=== PATIENT | female | born 1945 | race Caucasian/White ===

== ENCOUNTER 2017-01-28 14:30 | Inpatient (IN) | payer OTHER, MEDICARE ==
[2017-01-28] VITALS (11 sets, daily range): BP systolic 128–164; BP diastolic 55–78; PULSE 87–95; RESP 16–20; TEMP 97.4–98.1; O2SAT 98–100
[~2017-01-28] VITALS: Ht 165.1 cm; Wt 70.5 kg
[2017-01-28] MEDS ORDERED: LEVO500T8 PO (15:13)
[2017-01-28] MEDS ORDERED: GLIP5TAB8 PO (15:13)
[2017-01-28] MEDS ORDERED: ROSU1TAB10 PO (15:13)
[2017-01-28] MEDS ORDERED: GEMF600T PO (15:13)
[2017-01-28] MEDS ORDERED: METO25TA3 PO (15:13)
[2017-01-28] MEDS ORDERED: LOSA100T PO (15:13)
[2017-01-28] MEDS ORDERED: LEVO100T5 PO (15:13)
[2017-01-28] MEDS ORDERED: SODIUM CHLOR 0.9% 1000 ML INJ 1,000 ML IV SCH ×2 (15:15→18:45)
--- NOTE | 2017-01-28 15:21 | PD ---
HPI Chief Complaint: General Weakness Time Seen by Provider: 14:55 Travel History International Travel<30 days: No Contact w/Intl Traveler<30days: No Traveled to known affect area: No History of Present Illness HPI 71-year-old female complains of generalized malaise and weakness, body ache, shortness of breath and dyspnea on exertion. Patient was seen by personal physician 2 days ago and was diagnosed with UTI. Patient was given prescription for Levaquin 500 mg daily. Patient is on day #3 of Levaquin. Patient states that she started having increasing body ache, shortness of breath and dyspnea on exertion and body ache since then. Patient denies any fever chills. Patient denies any headache. Patient denies any neck pain. Patient denies any chest pain. Patient denies abdominal pain. Patient denies any nausea vomiting diarrhea. Patient denies any back pain. Patient denies any focal weakness or numbness of extremity. Patient states that she has occasional urinary frequency and the urinary frequency got better with antibiotic. Patient has history of chronic anemia due to chronic kidney disease , diabetes, hypertension, hypothyroidism. PFSH Past Medical History High Cholesterol: Yes Diabetes: Yes Patient Takes Glucophage: No Hypertension: Yes Thyroid Disease: Yes Tetanus Vaccination: Unknown Influenza Vaccination: Yes ?: Not Past Surgical History Surgical History: No Previous Surgery Social History Alcohol Use: Yes (RARELY) Tobacco Use: No Substance Use: No Allergies-Medications (Allergen,Severity, Reaction): Coded Allergies: No Known Allergies (Verified , 01/28/17) Reported Meds & Prescriptions Reported Meds & Active Scripts Active Reported Levofloxacin 500 Mg Tablet 500 Mg PO DAILY Levothyroxine (Levothyroxine Sodium) 100 Mcg Tab 100 Mcg PO DAILY Rosuvastatin (Rosuvastatin Calcium) 40 Mg Tab 40 Mg PO DAILY Glipizide 5 Mg Tab 2.5 Mg PO TID Take 30 minutes before a meal Losartan (Losartan Potassium) 100 Mg Tab 100 Mg PO DAILY Metoprolol Tartrate 25 Mg Tab 25 Mg PO BID Gemfibrozil 600 Mg Tab 600 Mg PO BIDAC Take 30 minutes prior to breakfast and dinner. Review of Systems General / Constitutional: No: Fever Eyes: No: Visual changes HENT: No: Headaches Cardiovascular: No: Chest Pain or Discomfort Respiratory: Positive: Shortness of Breath Gastrointestinal: No: Abdominal Pain Genitourinary: No: Dysuria Musculoskeletal: No: Pain Skin: No Rash Neurologic: No: Weakness Psychiatric: No: Depression Endocrine: No: Polydipsia Hematologic/Lymphatic: No: Easy Bruising Physical Exam Narrative GENERAL: Well-nourished, well-developed patient. SKIN: Focused skin assessment warm/dry. HEAD: Normocephalic. EYES: No scleral icterus. No injection or drainage. NECK: Supple, trachea midline. No JVD or lymphadenopathy. CARDIOVASCULAR: Regular rate and rhythm without murmurs, gallops, or rubs. RESPIRATORY: Breath sounds equal bilaterally. No accessory muscle use. GASTROINTESTINAL: Abdomen soft, non-tender, nondistended. MUSCULOSKELETAL: No cyanosis, or edema. BACK: Nontender without obvious deformity. No CVA tenderness. Neurologic exam normal. Data Data Last Documented VS Vital Signs Date Time Temp Pulse Resp B/P (MAP) Pulse Ox O2 Delivery O2 Flow Rate FiO2 01/28/17 18:40 90 18 128/65 (86) 98 Room Air 01/28/17 14:33 97.4 Orders Orders Electrocardiogram (01/28/17 15:05) Complete Blood Count With Diff (01/28/17 15:05) Comprehensive Metabolic Panel (01/28/17 15:05) Creatine Kinase (Cpk) (01/28/17 15:05) Troponin I (01/28/17 15:05) B-Type Natriuretic Peptide (01/28/17 15:05) Prothrombin Time / Inr (Pt) (01/28/17 15:05) Act Partial Throm Time (Ptt) (01/28/17 15:05) Urinalysis - C+S If Indicated (01/28/17 15:05) Chest, Single Ap (01/28/17 15:05) Iv Access Insert/Monitor (01/28/17 15:05) Ecg Monitoring (01/28/17 15:05) Oximetry (01/28/17 15:05) Sodium Chlor 0.9% 1000 Ml Inj (Ns 1000 M (01/28/17 15:15) Ct Abd/Pel W/O Iv Contrast (01/28/17 16:42) CKMB (01/28/17 15:10) CKMB% (01/28/17 15:10) Dextrose 5% In Wate... W/Sodium Bicarbon (01/28/17 17:30) Sodium Bicarbonate 8.4% Inj (Sodium Bica (01/28/17 17:30) Sodium Chlor 0.9% 1000 Ml Inj (Ns 1000 M (01/28/17 17:30) Sodium Polysty Sulfate Liq (Kayexalate L (01/28/17 18:00) Lactic Acid (01/28/17 18:42) Tylenol (Acetaminophen) (01/28/17 18:42) Salicylates (Aspirin) (01/28/17 18:42) Drug Screen, Random Urine (01/28/17 18:42) Sodium Chlor 0.9% 1000 Ml Inj (Ns 1000 M (01/28/17 18:45) Lactic Acid (01/28/17 18:47) Consult Nephrology (01/28/17 ) (Hub Use Only)Inp Phy Cons/Ref (01/28/17 ) Labs Laboratory Tests Test 01/28/17 15:10 White Blood Count 12.2 TH/MM3 Red Blood Count 3.85 MIL/MM3 Hemoglobin 11.8 GM/DL Hematocrit 34.3 % Mean Corpuscular Volume 89.0 FL Mean Corpuscular Hemoglobin 30.5 PG Mean Corpuscular Hemoglobin Concent 34.3 % Red Cell Distribution Width 12.8 % Platelet Count 198 TH/MM3 Mean Platelet Volume 7.9 FL Neutrophils (%) (Auto) 88.4 % Lymphocytes (%) (Auto) 4.3 % Monocytes (%) (Auto) 6.4 % Eosinophils (%) (Auto) 0.2 % Basophils (%) (Auto) 0.7 % Neutrophils # (Auto) 10.8 TH/MM3 Lymphocytes # (Auto) 0.5 TH/MM3 Monocytes # (Auto) 0.8 TH/MM3 Eosinophils # (Auto) 0.0 TH/MM3 Basophils # (Auto) 0.1 TH/MM3 CBC Comment DIFF FINAL Differential Comment Prothrombin Time 11.6 SEC Prothromb Time International Ratio 1.0 RATIO Activated Partial Thromboplast Time 26.4 SEC Blood Urea Nitrogen 100 MG/DL Creatinine 6.30 MG/DL Random Glucose 144 MG/DL Total Protein 7.3 GM/DL Albumin 3.4 GM/DL Calcium Level 7.6 MG/DL Alkaline Phosphatase 70 U/L Aspartate Amino Transf (AST/SGOT) 1167 U/L Alanine Aminotransferase (ALT/SGPT) 447 U/L Total Bilirubin 0.3 MG/DL Sodium Level 137 MEQ/L Potassium Level 5.6 MEQ/L Chloride Level 107 MEQ/L Carbon Dioxide Level 11.5 MEQ/L Anion Gap 19 MEQ/L Estimat Glomerular Filtration Rate 7 ML/MIN Total Creatine Kinase GREATER THAN 51517 U/L Creatine Kinase MB 712.3 NG/ML Creatine Kinase MB % 0.0 % Troponin I 0.02 NG/ML B-Type Natriuretic Peptide 21 PG/ML MDM Medical Decision Making Medical Screen Exam Complete: Yes Emergency Medical Condition: Yes Interpretation(s) Last Impressions Chest X-Ray 01/28/17 1505 Signed Impressions: Service Date/Time: Saturday, January 28, 2017 15:16 - CONCLUSION: No acute disease. Marcos Pelletier MD FACR 1639 PM. CBC WBC 12.2. Hemoglobin 11.8 hematocrit 34.3. 88 neutrophil. Potassium 5.6. Bicarbonate 11.5. Anion gap 19. BUN 100. Creatinine 6.30. GFR 7. Glucose 144. Calcium 7.6. AST 1167. ALT 447. Differential Diagnosis Differential diagnosis including viral syndrome, UTI, electrolyte abnormality, dehydration, sepsis, side effect of medication. Narrative Course 71-year-old female with generalized malaise, body ache, shortness of breath and dyspnea on exertion. Patient's on day #3 of Levaquin for UTI. Normal saline solution 1 25 cc an hour. Patient with severe metabolic acidosis. 1724 PM. Bicarbonate 100 mEq IV given. D5 W with 3 Amps of bicarbonate per liter at 75 cc an hour. Normal saline solution 1 L IV bolus. Kayexalate 30 cc by mouth given. I spoke with Dr. Lang, instructional technology coordinator song lyricist. Agree with the plan. Diagnosis Primary Impression: Acute renal failure Qualified Codes: N17.9 - Acute kidney failure, unspecified Additional Impressions: Rhabdomyolysis Qualified Codes: M62.82 - Rhabdomyolysis Metabolic acidosis Hyperkalemia Transaminitis Anthony Walker MD Jan 28, 2017 15:21
[2017-01-28 15:33] LABS: AUTOMATED NEUTROPHIL # 10.8 TH/MM3 (1.8-7.7); BASOPHIL # 0.1 TH/MM3 (0-0.2); BASOPHIL % 0.7 % (0.0-2.0); EOSINOPHIL % 0.2 % (0.0-4.0); HEMATOCRIT 34.3 % (35.0-46.0); HEMO FLAGS DIFF FINAL; LYMPH % 4.3 % (9.0-44.0); LYMPHOCYTE # 0.5 TH/MM3 (1.0-4.8); MEAN CORPUSCULAR HEMOGLOBIN 30.5 PG (27.0-34.0); MEAN CORPUSCULAR HGB CONC 34.3 % (32.0-36.0); MONO % 6.4 % (0.0-8.0); NEUT % 88.4 % (16.0-70.0); PLATELET COUNT 198 TH/MM3 (150-450); RED BLOOD COUNT 3.85 MIL/MM3 (4.00-5.30); RED CELL DISTRIBUTION WIDTH 12.8 % (11.6-17.2); WHITE BLOOD COUNT 12.2 TH/MM3 (4.0-11.0)
[2017-01-28 15:52] LABS: CHLORIDE 107 MEQ/L (98-107); POTASSIUM 5.6 MEQ/L (3.5-5.1); SODIUM (NA) 137 MEQ/L (136-145)
[2017-01-28 15:56] LABS: ANION GAP 19 MEQ/L (5-15); APTT (PATIENT) 26.4 SEC (24.3-30.1); BICARBONATE 11.5 MEQ/L (21.0-32.0); BLOOD UREA NITROGEN 100 MG/DL (7-18); PROTHROMBIN TIME - PATIENT 11.6 SEC (9.8-11.6)
[2017-01-28 15:59] LABS: ALT (GPT) 447 U/L (10-53); GLOMERULAR FILTRATION RATE 7 ML/MIN (>89)
--- NOTE | 2017-01-28 15:59 | RADRPT ---
EXAM DATE/TIME: 01/28/2017 15:16 [facility] COMPARISON: No previous studies available for comparison. INDICATIONS : Shortness of breath. MEDICAL HISTORY : None. SURGICAL HISTORY : None. ENCOUNTER: Initial ACUITY: 1 day PAIN SCORE: 5/10 LOCATION: Bilateral chest FINDINGS: A single view of the chest demonstrates the lungs to be symmetrically aerated without evidence of mas s, infiltrate or effusion. The cardiomediastinal contours are unremarkable. Osseous structures are intact. CONCLUSION: No acute disease. Marcos Pelletier MD FACR on January 28, 2017 at 15:57 Board Certified Radiologist. This report was verified electronically.
[2017-01-28 16:00] LABS: TOTAL BILIRUBIN ADULT 0.3 MG/DL (0.2-1.0)
[2017-01-28 16:02] LABS: ALKALINE PHOSPHATASE 70 U/L (45-117)
[2017-01-28 16:07] LABS: AST (GOT) 1167 U/L (15-37)
[2017-01-28 16:52] LABS: CREATINE KINASE GREATER THAN 14000 U/L (26-192)
[2017-01-28 17:20] LABS: CKMB 712.3 NG/ML (0.5-3.6)
[2017-01-28] MEDS ORDERED: SODIUM BICARBONATE 8.4% INJ 50 MEQ/50 ML SYR IV PUSH ONE (17:30)
[2017-01-28] MEDS ORDERED: SODIUM CHLOR 0.9% 1000 ML INJ 1,000 ML IV ONE (17:30)
[2017-01-28] MEDS ORDERED: SODIUM POLYSTYRENE SULFONATE SUSP 15 GM/60 ML CUP PO ONE (18:00)
[2017-01-28] MEDS: SODIUM BICARBONATE 8.4% INJ 150 MEQ in DEXTROSE 5% IN WATE 1000ML INJ 1,000 ML IV SCH ×2 (18:00)
--- NOTE | 2017-01-28 18:59 | RADRPT ---
EXAM DATE/TIME: 01/28/2017 17:21 [facility] COMPARISON: No previous studies available for comparison. INDICATIONS : Renal failure. General weakness. ORAL CONTRAST: No oral contrast ingested. RADIATION DOSE: 8.68 CTDIvol (mGy) MEDICAL HISTORY : Diabetes mellitus type 2. Hypertension. SURGICAL HISTORY : None. ENCOUNTER: Initial ACUITY: 2 days PAIN SCALE: 5/10 LOCATION: Abdomen. TECHNIQUE: Volumetric scanning of the abdomen and pelvis was performed. Using automated exposure control and ad justment of the mA and/or kV according to patient size, radiation dose was kept as low as reasonably achievable to obtain optimal diagnostic quality images. DICOM format image data is available electro nically for review and comparison. FINDINGS: LOWER LUNGS: The visualized lower lungs are clear. LIVER: Homogeneous density without lesion. There is no dilation of the biliary tree. No calcified gallston es. SPLEEN: Normal size without lesion. PANCREAS: Within normal limits. KIDNEYS: Normal in size and shape. There is no mass, stone, or hydronephrosis. ADRENAL GLANDS: Within normal limits. VASCULAR: There is no aortic aneurysm. Atherosclerotic calcifications are seen. BOWEL/MESENTERY: The stomach, small bowel, and colon demonstrate no acute abnormality. There is no free intraperitone al air or fluid. The appendix is normal. ABDOMINAL WALL: Within normal limits. There is minimal induration in the subcutaneous anterior abdominal wall fat lik zee from prior injections. RETROPERITONEUM: There is no lymphadenopathy. BLADDER: No wall thickening or mass. REPRODUCTIVE: Within normal limits. INGUINAL: There is no lymphadenopathy or hernia. MUSCULOSKELETAL: Within normal limits for patient age. CONCLUSION: No acute disease. Charlie Cheng MD on January 28, 2017 at 18:55 Board Certified Radiologist. This report was verified electronically.
[2017-01-28] MEDS ORDERED: MAGNESIUM HYDROXIDE SUSP 30 ML CUP PO PRN (19:45)
[2017-01-28] MEDS ORDERED: RESP: ALBUTEROL 2.5 MG/3 ML NEB (PRN) INH (19:45)
[2017-01-28] MEDS ORDERED: LACTULOSE SYRUP 20 GM/30 ML CUP PO PRN (19:45)
[2017-01-28] MEDS ORDERED: MORPHINE SULFATE 4 MG/ML INJ IV PRN (19:45)
[2017-01-28] MEDS ORDERED: BISACODYL 10 MG SUPP RECTAL PRN (19:45)
[2017-01-28] MEDS ORDERED: MISCELLANEOUS NURSING INFORMATION XX SCH (19:45)
[2017-01-28] MEDS ORDERED: SENNOSIDES 8.6 MG TAB PO PRN (19:45)
[2017-01-28] MEDS ORDERED: SODIUM CHLORIDE 0.9% FLUSH 10 ML FLUSH IV FLUSH PRN (19:45)
[2017-01-28] MEDS ORDERED: ONDANSETRON HCL 4 MG/2 ML VIAL IV PRN (19:45)
[2017-01-28] MEDS ORDERED: CHLORHEXIDINE GLUCONATE 2 % 1 PACK (2 CLOTHS) TOP PRN (19:45)
[2017-01-28] MEDS ORDERED: DEXTROSE 50% IN WATER 50 ML VIAL(D50) IV PRN (20:00)
[2017-01-28] MEDS ORDERED: GLUCAGON 1 MG/ML VIAL OTHER PRN (20:00)
[2017-01-28] MEDS: SODIUM CHLORIDE 0.9% FLUSH 10 ML FLUSH IV FLUSH SCH (21:00)
[2017-01-28] MEDS: DOCUSATE SODIUM 50 MG/SENNA 8.6 MG TAB PO SCH (21:00)
[2017-01-28 21:19] LABS: BLOOD, URINE LARGE (NEG); GLUCOSE,URINE 100 mg/dL (NEG); KETONE, URINE TRACE mg/dL (NEG); NITRITE,URINE NEG (NEG)
[2017-01-28 21:26] LABS: URINE COLOR BROWN (YELLW/STRAW)
[2017-01-28 21:27] LABS: RBC, URINE 0-3 /hpf (0-3); SQUAMOUS EPITHELIAL CELL URINE 0-5 /hpf (0-5)
[2017-01-28 21:28] LABS: COMMENT (UR) CULTURE INDICATED; CULTURE IF INDICATED CULTURE INDICATED
--- NOTE | 2017-01-28 21:41 | HHI.CCPN ---
Subjective Remarks/Hospital Course Called by Dr. Walker for patient with recent diagnosis of UTI and acute kidney injury, hyperkalemia, rhabdo and elevated transaminases. Hyperkalemia medically treated. Patient denied ingestion of Tylenol to Dr. Walker. Sending tox screen, Tylenol level, hepatitis panel, ultrasound. We'll hold Levaquin in case this is contributing to transaminitis. Also hold statin in setting of rhabdo. Obtain UA and culture. Cefepime for UTI. Check lactic acid. Patient is normotensive. Nephrology has been consulted. I am covering [facility] and must remain in house at [facility] while providing coverage at [facility]. Patient does not appear to require the resources to transfer to [facility]. Admission orders have been placed. IVF fluids and bicarb drip, monitor CMP. Objective Vital Signs Date Time Temp Pulse Resp B/P (MAP) Pulse Ox O2 Delivery O2 Flow Rate FiO2 01/28/17 21:00 98.1 95 18 148/59 (88) 100 Room Air Intake and Output 01/28/17 01/28/17 01/29/17 08:00 16:00 00:00 Intake Total 1239 ml Balance 1239 ml Result Diagram: 01/28/17 1510 01/28/17 1510 Magali Espinoza MD Jan 28, 2017 21:41
[2017-01-28] MEDS ORDERED: SODIUM CHLORID 0.9% 500 ML INJ 500 ML IV SCH (21:45)
[2017-01-28] MEDS: INSULIN ASPART SUPPLEMENTAL SCALE SQ SCH (21:51)
[2017-01-28] MEDS: HEPARIN SODIUM - SQ 10,000 UNITS/ML VIAL SQ SCH (21:54)
[2017-01-28 23:18] LABS: BICARBONATE 15.1 MEQ/L (21.0-32.0); POTASSIUM 4.4 MEQ/L (3.5-5.1)
[2017-01-28 23:34] LABS: CALCIUM-PROTEIN CORRECTED 7.8 MG/DL (8.5-10.1)
[2017-01-28] MEDS: CEFEPIME INJ 1,000 MG in SODIUM CHLORIDE 0.9% INJ 100 ML IV SCH (23:55)
[2017-01-29] VITALS (24 sets, daily range): BP systolic 103–159; BP diastolic 46–89; PULSE 74–92; RESP 9–31; TEMP 98.2–99.1; O2SAT 94–96
[2017-01-29] MEDS: CHLORHEXIDINE GLUCONATE 2 % 1 PACK (2 CLOTHS) TOP SCH (04:00)
[2017-01-29 06:30] LABS: AUTOMATED NEUTROPHIL # 5.6 TH/MM3 (1.8-7.7); BASOPHIL % 0.5 % (0.0-2.0); EOSINOPHIL # 0.1 TH/MM3 (0-0.4); EOSINOPHIL % 1.5 % (0.0-4.0); LYMPH % 7.8 % (9.0-44.0); LYMPHOCYTE # 0.5 TH/MM3 (1.0-4.8); MEAN CELL VOLUME 87.5 FL (80.0-100.0); MEAN CORPUSCULAR HGB CONC 33.2 % (32.0-36.0); MONO % 7.4 % (0.0-8.0); NEUT % 82.8 % (16.0-70.0); PLATELET COUNT 186 TH/MM3 (150-450); RED BLOOD COUNT 3.32 MIL/MM3 (4.00-5.30); RED CELL DISTRIBUTION WIDTH 12.5 % (11.6-17.2); WHITE BLOOD COUNT 6.7 TH/MM3 (4.0-11.0)
[2017-01-29] MEDS: LEVOTHYROXINE SODIUM 100 MCG TAB PO SCH (06:43)
[2017-01-29 06:44] LABS: HEMO FLAGS AUTO DIFF
[2017-01-29] MEDS: INSULIN ASPART SUPPLEMENTAL SCALE SQ SCH ×4 (07:00→23:43)
[2017-01-29 07:02] LABS: SCAN/DIFF AUTO DIFF CONFIRMED
[2017-01-29 07:25] LABS: ALKALINE PHOSPHATASE 57 U/L (45-117); ALT (GPT) 351 U/L (10-53); ANION GAP 16 MEQ/L (5-15); AST (GOT) 861 U/L (15-37); BICARBONATE 17.8 MEQ/L (21.0-32.0); BLOOD UREA NITROGEN 100 MG/DL (7-18); CALCIUM-PROTEIN CORRECTED 7.9 MG/DL (8.5-10.1); CHLORIDE 108 MEQ/L (98-107); GLOMERULAR FILTRATION RATE 6 ML/MIN (>89); MAGNESIUM 2.1 MG/DL (1.5-2.5); POTASSIUM 3.3 MEQ/L (3.5-5.1); SODIUM (NA) 142 MEQ/L (136-145); TOTAL BILIRUBIN ADULT 0.2 MG/DL (0.2-1.0)
[2017-01-29] MEDS ORDERED: SODIUM CHLOR 0.9% 1000 ML INJ 1,000 ML IV ONE (07:45)
[2017-01-29] MEDS ORDERED: SODIUM CHLORIDE 0.9% IRR BTL 1,000 ML IRRIGATION ONE (07:45)
[2017-01-29] MEDS: SODIUM BICARBONATE 8.4% INJ 150 MEQ in DEXTROSE 5% IN WATE 1000ML INJ 1,000 ML IV SCH ×4 (08:09→17:19)
[2017-01-29] MEDS: SODIUM CHLORIDE 0.9% FLUSH 10 ML FLUSH IV FLUSH SCH ×2 (08:10→20:50)
[2017-01-29 08:24] LABS: CKMB 415.6 NG/ML (0.5-3.6)
[2017-01-29] MEDS: DOCUSATE SODIUM 50 MG/SENNA 8.6 MG TAB PO SCH ×2 (09:00→20:50)
[2017-01-29] MEDS: PANTOPRAZOLE SOD 40 MG DELAYED RELEASE TAB PO SCH (09:01)
[2017-01-29] MEDS: HEPARIN SODIUM - SQ 10,000 UNITS/ML VIAL SQ SCH ×2 (09:02→20:49)
[2017-01-29 09:26] LABS: CREATINE KINASE GREATER THAN 14000 U/L (26-192)
--- NOTE | 2017-01-29 09:56 | EKG ---
Date Performed: 01/28/2017 Time Performed: 15:14:27 PTAGE: 71 years EKG: Sinus rhythm LOW QRS VOLTAGE IN PRECORDIAL LEADS BORDERLINE ECG NO PREVIOUS TRACING DOCTOR: Mike Bell Interpretating Date/Time 01/29/2017 09:54:18
--- NOTE | 2017-01-29 12:52 | MH ---
cc: FATOUMATA FLORES M.D. DATE OF ADMISSION: 01/28/2017 HISTORY OF PRESENT ILLNESS : The patient is 71-year-old female with past medical history of diabetes mellitus, hypertension, hyperlipidemia, hypothyroidism who presented to the [facility] with complaints of generalized weakness and body aches. The patient went to see her primary care physician approximately two or three days ago and she was diagnosed with a urinary tract infection and given prescription for Levaquin. She also reports difficulty ambulating and intermittent shortness of breath and dyspnea on exertion. She denies any associated symptoms of chest pain, orthopnea, paroxysmal nocturnal dyspnea or edema of the lower extremities. In addition, she denies any nausea or vomiting, abdominal pain or any gastrointestinal symptoms. In the emergency room, she was found to be in renal failure with a BUN of 100, creatinine 6.30 and hyperkalemic with potassium level 5.6. Also, the patient was in rhabdomyolysis with elevated CKs greater than 14,000 and had elevated liver enzymes. Her AST measured at 1167 and ALT 447. Her urine toxicology screen is negative. In addition her Tylenol level was less than 2.0 and aspirin level is 2.8. She was given a one liter bolus of normal saline, two ampules of sodium bicarb and Kayexalate. The patient was placed on a bicarb drip. When seen, she was lying comfortably in bed in no acute respiratory distress. The patient is on room air oxygen with saturation of 97%, blood pressure 120/63 with a pulse of 80. She had repeat labs last night, which showed creatinine of 6.50 with a potassium of 4.4. Her labs are pending at this point. CT scan of the abdomen and pelvis last night was unremarkable. In addition, she had a chest x-ray which showed no acute cardiopulmonary disease. The patient was placed on Cefepime for urinary tract infection. PAST MEDICAL HISTORY: Her past medical history is significant for: 1. Hypertension. 2. Hyperlipidemia. 3. Diabetes mellitus. 4. Hypothyroidism. PAST SURGICAL HISTORY: 1. Previous tonsillectomy. SOCIAL HISTORY: Quit smoking in 1999. Occasional drinker. ALLERGIES: NO KNOWN DRUG ALLERGIES. REPORTED MEDICATIONS: 1. Lopressor. 2. Gemfibrozil. 3. Losartan. 4. Glipizide. 5. Levothyroxine. 6. Levaquin. FAMILY HISTORY: Noncontributory. REVIEW OF SYSTEMS: As per the history of present illness and the rest of the review of systems is unremarkable. PHYSICAL EXAMINATION: GENERAL: A 71-year-old female lying in bed in no acute distress. VITAL SIGNS: Temperature 98.6, pulse 80, blood pressure 120/53, saturations 97% on room air. HEAD, EYES, EARS, NOSE, THROAT: Normocephalic and atraumatic. Pupils equal, round and reactive to light and accommodation. Extraocular muscles intact. Conjunctivae are pink. Nonicteric sclerae. Oral mucosa within normal limits. NECK: The neck is supple. No jugular venous distention, adenopathy or thyromegaly. Trachea in the midline. CARDIOVASCULAR: Regular rate and rhythm. Normal S1-S2. No murmurs, rubs or gallops noted. PULMONARY: Bilateral equal air entry. No rales or wheezing. ABDOMEN: The abdomen is soft, nontender and no distention. Positive bowel sounds. EXTREMITIES: No cyanosis, clubbing or edema. NEUROLOGIC: No focal sensory deficits. LABORATORY DATA: White blood cell count 6.7, hemoglobin 9.6, hematocrit 29, platelet count 186,000. Sodium 142, potassium 4.4, chloride 109, carbon dioxide 15, BUN 103, creatinine 6.5, glucose of 163, corrected calcium 7.8. Liver function tests from yesterday showed AST 1167, AST 447, total bilirubin 0.3, alkaline phosphatase 70. Total CK greater than 14,000. 676. TSH 0.742. INR 1. PT 11.6. PTT 26.4. Urine drug screen negative. Tylenol level less than 2, aspirin level of 2.8. IMAGING STUDIES: CT abdomen and pelvis showed no acute disease. Chest x-ray showed no evidence of any cardiopulmonary disease. IMPRESSION: 1. Acute kidney injury. 2. Rhabdomyolysis. 3. Dehydration. 4. Elevated liver enzymes. 5. Anion gap metabolic acidosis. 6. Leukocytosis, resolved. 7. Recent urinary tract infection. 8. Anemia. 9. Diabetes mellitus. 10. Hyperlipidemia. 11. Hypertension. 12. Hypothyroidism. RECOMMENDATIONS: 1. Monitor neuro status. The patient is awake and alert. 2. Oxygen PRN to maintain saturations above 92%. 3. Bronchodilators on a PRN basis. 4. Monitor heart rate and blood pressure closely and maintain MAP greater than 65 mmHg. 5. Lactic acid level measured at 1.0 last night. 6. Hold antihypertensives and medications for now. 7. Monitor renal function, intake and output and avoid nephrotoxins. 8. Electrolyte replacement as needed. 9. Continue with bicarbonate drip and increase rate to 125 mL/hour. 10. CT scan abdomen and pelvis showed no evidence of any kidney stones, masses os hydronephrosis. 11. Dr. Lang from the nephrology service was consulted. 12. Keep NPO for now and continue with Protonix 40 milligrams daily for GI prophylaxis. 13. Monitor liver function tests and lipase level. 14. CT scan of the abdomen showed no acute findings as stated above. Her liver showed no dilation of the biliary tree and no calcified gallstones. 15. Continue with antibiotics in the form of Cefepime and monitor for signs of infection which include fever and WBCs. 16. Follow up on urine culture. 17. Monitor CBC. 18. Sliding scale insulin with Accu-Cheks for glycemic control. 19. Continue with Synthroid 100 micrograms p.o. daily. Her TSH level measured 0.74. 20. GI prophylaxis with Protonix 40 milligrams daily and DVT prophylaxis with SCDs and heparin subcutaneous. Further recommendations will be based on the hospital course. MD CLOTILDE Boyd/MAURICE /7:07 AM /12:36 PM
--- NOTE | 2017-01-29 12:52 | RADRPT ---
EXAM DATE/TIME: 01/29/2017 11:23 [facility] COMPARISON: No previous studies available for comparison. INDICATIONS : Increased lab values. MEDICAL HISTORY : Hypercholesterolemia. Hypertension. Diabetes. Thyroid disease. SURGICAL HISTORY : None. ENCOUNTER: Initial ACUITY: 2 days PAIN SCORE: 0/10 LOCATION: Bilateral upper quadrant MEASUREMENTS: LIVER: 16.6 cm length COMMON DUCT: 7 mm RIGHT KIDNEY: 11.2 x 5.4 x 6.1 cm SPLEEN: 10.8 cm length FINDINGS: LIVER: Normal echotexture without focal lesion or ductal dilatation. COMMON DUCT: No intraluminal mass or stone visualized. Mildly prominent 7 mm. GALLBLADDER: Prominent gallbladder without gallbladder without inflated signs of acute cholecystitis. PANCREAS: The visualized portions are within normal limits. RIGHT KIDNEY: Small 1.6 in recess without hydronephrosis. SPLEEN: No focal lesion. CONCLUSION: Prominent gallbladder without stones or intrahepatic biliary duct dilatation. Marcos Pelletier MD FACR on January 29, 2017 at 12:49 Board Certified Radiologist. This report was verified electronically.
[2017-01-29 13:29] LABS: BICARBONATE 21.6 MEQ/L (21.0-32.0)
[2017-01-29 13:50] LABS: CALCIUM-PROTEIN CORRECTED 7.8 MG/DL (8.5-10.1)
[2017-01-29] MEDS ORDERED: POTASSIUM CHLOR 20 MEQ PREMIX 100 ML IV ONE (15:00)
[2017-01-29] MEDS ORDERED: FUROSEMIDE 40 MG/4 ML VIAL IV PUSH ONE (15:00)
--- NOTE | 2017-01-29 17:54 | MB ---
cc: AUTUMN ALTMAN MD DATE OF CONSULTATION 01/29/17 REASON FOR CONSULTATION Elevated BUN and creatinine for evaluation. HISTORY OF PRESENT ILLNESS This is a 71-year-old female with past medical history of hyperlipidemia, diabetes mellitus, hypertension, recent urinary tract infection, possible chronic kidney disease who came to the hospital with complaint of generalized weakness, pain in the legs and shortness of breath on exertion. I was called to see the patient because of very high BUN and creatinine. The patient was told before that she has renal disease. She saw some addictions counselor assistant once as an outpatient and then she was not going because she said that all her primary physician was doing is checking the labs and telling her that the kidneys are not very good, but according to her it was not very back to be concerned of. The patient has a urinary tract infection with dysuria. She was given some antibiotic, Levaquin. She was taking 500 mg once a day. She noticed that she has worsening shortness of breath and has decreasing appetite and weakness and also has pain in her legs. She called her primary physician on Tuesday and was told to stop the statin that she was taking and drink plenty of fluid which she did, but she noticed that her urine output has decreased. She was taking ibuprofen for pain in the legs for two days before she came to the hospital and she was taking twice a day. There is no history of blood in the urine. There is no history of renal stone. No vomiting. Occasionally, she has nausea. She did not have any diarrhea, but she has some loose bowel motion after she was given Kayexalate here. The patient had elevated potassium when she came in here and the potassium was 5.6, but it improved. Her urine output remains low. She has a creatinine of 6.3 and it has gone up to 7.1 now. PAST MEDICAL HISTORY 1. Hypertension, 2. Diabetes mellitus, 3. Hyperlipidemia, 4. Possible chronic kidney disease, 5. Osteoarthritis. PAST SURGICAL HISTORY None. REVIEW OF SYSTEMS She has generalized weakness, feeling tired, has nausea. There is no vomiting, has shortness of breath on exertion. There is no chest pain, mild cough which is mainly dry. There is no history of diarrhea. She had loose bowel motion after she was given kayexalate here. She has been taking ibuprofen for pain in the legs. She has pain in both legs. He also has dysuria and was taking Levaquin for three days before she came to the hospital. She was also taking ibuprofen for the pain in the legs for at least two days before she came to the hospital. SOCIAL HISTORY There is no history of smoking. Occasionally drinks alcoholic beverages. FAMILY HISTORY Noncontributory. She is adopted. She does not know if there is any family history of renal disease. ALLERGIES She has no known drug allergies. MEDICATIONS Currently 1. IV fluid with sodium bicarbonate 2. Synthroid 100 mcg once a day. 3. She got one dose of potassium chloride. 4. Heparin 5000 units subcu q.12 h 5. Cefepime 1 gram IV q. 24-hour. 6. Insulin sliding-scale. 7. Albuterol as needed. PHYSICAL EXAMINATION GENERAL: The patient is awake, alert. She is not in acute distress. VITAL SIGNS: Her last blood pressure is 150/64, temperature is 98.5. She remained afebrile, oxygen saturation 96% on room air. Her blood pressure has been normal at slightly high level. She did not have any documented hypotensive episode during this admission. HEENT: Pupils are mid constricted. Nonicteric sclerae, conjunctivae pale. NECK: Supple. JVD is not elevated. LUNGS: The patient has bilateral decreased air entry with occasional wheezing. HEART: S1, S2, regular rhythm. ABDOMEN: Soft, lax. There is no tenderness. Bowel sounds positive. EXTREMITIES: She has mild edema in the legs. LABORATORY DATA WBC count 6.7, hemoglobin 9.6, platelet count of 186, neutrophils 82.8%, eosinophil 1.5%. Sodium 142. Potassium 3.0, chloride 106, bicarb 21.6, BUN 101, creatinine 7.1. Calcium corrected is 7.8, phosphorus is 7.4. CPK is more than 14,000, AST is 861, ALT is 351, total protein is 5.6. Albumin of 2.6. Lipase 619, INR is 1.0. Toxicology screen was negative. Acetaminophen was less than 2, salicylate was 2.8. Urinalysis showing that there is protein of 300 or greater, eosinophils not seen, urine sodium and creatinine pending. Hepatitis serology is pending. Urine culture is pending. IMAGING STUDIES The patient had CT scan of the abdomen and pelvis done which shows that she has no acute lesions. The kidneys are reported as normal in size. No hydronephrosis or mass. Ultrasound of the liver was done which shows that there is a prominent gallbladder without a stone or intrahepatic biliary dilatation. Chest x-ray was done which shows lung nettles are clear. ASSESSMENT/PLAN 1. Acute kidney injury with possibility of chronic kidney disease. 2. Hyperkalemia. 3. Metabolic acidosis 4. Hypocalcemia. 5. Possible rhabdomyolysis. 6. Elevated liver enzymes. The patient has very high CPK level. There is an element of acute kidney injury. Her urine output is low and BUN and creatinine has been increasing. The potassium has decreased now to 3.0. She is getting now replacement of potassium. Urine output remained low despite all the fluids. I will give her one dose of Lasix and keep the fluids running at present. If the urine output and the BUN, creatinine does not increase, then it is possible that she will need to be started on dialysis. The patient was told and explained this and she understands. She has significant proteinuria. Most likely she has underlying diabetic renal disease. I will send also the serology including JOSE ROBERTO, ANCA and complement level. Thank you for the consultation. I will follow the patient while she is in the hospital. MD FELIPE Akhtar/ /2:37 PM /5:34 PM
[2017-01-29] MEDS ORDERED: POTASSIUM CHLORIDE 20 MEQ CONTROLLED RELEASE TAB PO ONE (21:00)
[2017-01-29] MEDS: CEFEPIME INJ 1,000 MG in SODIUM CHLORIDE 0.9% INJ 100 ML IV SCH (23:43)
[2017-01-30] VITALS (38 sets, daily range): BP systolic 112–140; BP diastolic 49–69; PULSE 74–88; RESP 13–26; TEMP 97.9–98.9; O2SAT 96–100
[2017-01-30] MEDS: CHLORHEXIDINE GLUCONATE 2 % 1 PACK (2 CLOTHS) TOP SCH (02:56)
[2017-01-30] MEDS: SODIUM BICARBONATE 8.4% INJ 150 MEQ in DEXTROSE 5% IN WATE 1000ML INJ 1,000 ML IV SCH ×4 (02:56→10:56)
[2017-01-30] MEDS: LEVOTHYROXINE SODIUM 100 MCG TAB PO SCH (05:47)
[2017-01-30] MEDS: INSULIN ASPART SUPPLEMENTAL SCALE SQ SCH ×4 (05:48→20:14)
[2017-01-30 06:22] LABS: AUTOMATED NEUTROPHIL # 5.5 TH/MM3 (1.8-7.7); BASOPHIL # 0.1 TH/MM3 (0-0.2); BASOPHIL % 1.4 % (0.0-2.0); EOSINOPHIL # 0.3 TH/MM3 (0-0.4); EOSINOPHIL % 3.3 % (0.0-4.0); HEMATOCRIT 25.1 % (35.0-46.0); HEMO FLAGS DIFF FINAL; LYMPH % 13.7 % (9.0-44.0); MEAN CELL VOLUME 87.9 FL (80.0-100.0); MEAN CORPUSCULAR HEMOGLOBIN 29.3 PG (27.0-34.0); MEAN CORPUSCULAR HGB CONC 33.3 % (32.0-36.0); MONO % 9.4 % (0.0-8.0); NEUT % 72.2 % (16.0-70.0); PLATELET COUNT 153 TH/MM3 (150-450); RED BLOOD COUNT 2.86 MIL/MM3 (4.00-5.30); RED CELL DISTRIBUTION WIDTH 12.1 % (11.6-17.2); WHITE BLOOD COUNT 7.6 TH/MM3 (4.0-11.0)
[2017-01-30 06:45] LABS: BICARBONATE 26.4 MEQ/L (21.0-32.0); CALCIUM-PROTEIN CORRECTED 8.3 MG/DL (8.5-10.1); TOTAL BILIRUBIN ADULT 0.4 MG/DL (0.2-1.0)
[2017-01-30] MEDS: DOCUSATE SODIUM 50 MG/SENNA 8.6 MG TAB PO SCH ×2 (08:29→20:05)
[2017-01-30] MEDS: SODIUM CHLORIDE 0.9% FLUSH 10 ML FLUSH IV FLUSH SCH ×2 (08:29→20:04)
[2017-01-30] MEDS: PANTOPRAZOLE SOD 40 MG DELAYED RELEASE TAB PO SCH (08:29)
[2017-01-30] MEDS: HEPARIN SODIUM - SQ 10,000 UNITS/ML VIAL SQ SCH ×2 (09:00→20:05)
[2017-01-30 10:01] LABS: CREATINE KINASE GREATER THAN 1400 U/L (26-192)
[2017-01-30 10:17] LABS: CKMB 87.8 NG/ML (0.5-3.6)
[2017-01-30] MEDS ORDERED: SODIUM CHLORIDE 0.9% FLUSH 10 ML FLUSH IVF PRN (12:00)
[2017-01-30] MEDS ORDERED: HEPARIN SODIUM - IV 2,000 UNITS/2 ML VIAL IV FLUSH PRN (12:00)
[2017-01-30] MEDS ORDERED: LORazepam 2 MG/ML VIAL IV PUSH ONE (12:00)
[2017-01-30] MEDS: HEPARIN SODIUM - IV 10,000 UNITS/10 ML VIAL IV FLUSH PRN (12:56)
--- NOTE | 2017-01-30 13:13 | RADRPT ---
EXAM DATE/TIME: 01/30/2017 13:01 [place] COMPARISON: CHEST SINGLE AP, January 28, 2017, 15:16. INDICATIONS : Central line placement MEDICAL HISTORY : None. SURGICAL HISTORY : None. ENCOUNTER: Initial ACUITY: 4 - 6 days PAIN SCORE: Non-responsive. LOCATION: Bilateral chest FINDINGS: Minimal bibasilar parenchymal changes are noted. Masses catheter in good position. The cardiomedias tinal contours are unremarkable. Osseous structures are intact. CONCLUSION: Catheter in good position. Marcos Pelletier MD FACR on January 30, 2017 at 13:10 Board Certified Radiologist. This report was verified electronically.
--- NOTE | 2017-01-30 13:28 | PD.PROCEDR ---
[facility] Procedure Procedure REASON FOR PROCEDURE Hemodialysis access PROCEDURE PERFORMED Temporary dialysis catheter placement: Right internal jugular CONSENT Informed consent for procedure was obtained from patient. The risks and benefits of the procedure were discussed to include but limited to bleeding, clot formation, infection, and even . ANESTHESIA Local injection of 1% Lidocane DESCRIPTION OF THE PROCEDURE The patient was placed in supine, mild trendelenburg position. The area was exposed and cleansed with Chloraprep, times two. Large sterile drape was used to cover the patient, with the site exposed, under sterile conditions including cap, face mask, sterile gown, and sterile gloves. On single attempt, the introducer needle was inserted with negative pressure in syringe and venous flash was obtained. The guide wire was then advanced without any restriction and the needle was removed. The dilator was used without any complications. Using Seldinger technique the double lumen temporary dialysis catheter was advanced over the guide wire to a depth of 16 centimeters. The guide wire was removed. All ports were aspirated with dark venous blood return and flushed easily with sterile saline. All ports were capped. Antibiotic disc was placed around central line at puncture site. The central line was secured to the skin with two interrupted 2.0 silk sutures. The area was bandaged with sterile see- through central line bandage. RADIOLOGICAL DATA Ultrasound guidance was used to locate right internal jugular vein. Ultrasound was used in order to confirm guidewire within the lumen Stat chest x-ray was performed which showed good placement COMPLICATIONS: No apparent complications ESTIMATED BLOOD LOSS: Less than 1 cc. Chris Barlow Jan 30, 2017 13:28
--- NOTE | 2017-01-30 16:48 | HHI.CCPN ---
Subjective Remarks/Hospital Course Patient is 71-year-old female with past medical history of diabetes mellitus, hypertension, hyperlipidemia, hypothyroidism who presented to the [place] [facility] with complaints of generalized weakness and body aches. The patient went to see her primary care physician approximately two or three days ago and she was diagnosed with a urinary tract infection and given prescription for Levaquin. She also reports difficulty ambulating and intermittent shortness of breath and dyspnea on exertion. She denies any associated symptoms of chest pain, orthopnea, paroxysmal nocturnal dyspnea or edema of the lower extremities. In addition, she denies any nausea or vomiting , abdominal pain or any gastrointestinal symptoms. In the emergency room, she was found to be in renal failure with a BUN of 100, creatinine 6.30 and hyperkalemic with potassium level 5.6. Also, the patient was in rhabdomyolysis with elevated CKs greater than 14,000 and had elevated liver enzymes. Her AST measured at 1167 and ALT 447. Her urine toxicology screen is negative. In addition her Tylenol level was less than 2.0 and aspirin level is 2.8. She was given a one liter bolus of normal saline, two ampules of sodium bicarb and Kayexalate. The patient was placed on a bicarb drip. When seen, she was lying comfortably in bed in no acute respiratory distress. The patient is on room air oxygen with saturation of 97%, blood pressure 120/63 with a pulse of 80. She had repeat labs last night, which showed creatinine of 6.50 with a potassium of 4.4. Her labs are pending at this point. CT scan of the abdomen and pelvis last night was unremarkable. In addition, she had a chest x-ray which showed no acute cardiopulmonary disease. The patient was placed on Cefepime for urinary tract infection. 01/30 Patient had worsening renal function today with Cr: 8.0 from 7.1 yesterday with poor UOP. She was started on HD today with 1L removal. Awake, alert on room air oxygen, Afebrile. Objective Vital Signs Date Time Temp Pulse Resp B/P (MAP) Pulse Ox O2 Delivery O2 Flow Rate FiO2 01/30/17 16:30 78 19 125/58 (80) 01/30/17 16:00 98.4 01/30/17 12:45 100 01/28/17 22:00 Room Air Intake and Output 01/30/17 01/30/17 01/31/17 08:00 16:00 00:00 Intake Total 1250 ml Output Total 75 ml 1000 ml Balance 1175 ml -1000 ml Result Diagram: 01/30/17 0555 01/30/17 0555 Other Results Laboratory Tests Test 01/29/17 19:24 01/30/17 05:55 Potassium Level 3.0 MEQ/L 3.0 MEQ/L White Blood Count 7.6 TH/MM3 Red Blood Count 2.86 MIL/MM3 Hemoglobin 8.4 GM/DL Hematocrit 25.1 % Mean Corpuscular Volume 87.9 FL Mean Corpuscular Hemoglobin 29.3 PG Mean Corpuscular Hemoglobin Concent 33.3 % Red Cell Distribution Width 12.1 % Platelet Count 153 TH/MM3 Mean Platelet Volume 7.8 FL Neutrophils (%) (Auto) 72.2 % Lymphocytes (%) (Auto) 13.7 % Monocytes (%) (Auto) 9.4 % Eosinophils (%) (Auto) 3.3 % Basophils (%) (Auto) 1.4 % Neutrophils # (Auto) 5.5 TH/MM3 Lymphocytes # (Auto) 1.0 TH/MM3 Monocytes # (Auto) 0.7 TH/MM3 Eosinophils # (Auto) 0.3 TH/MM3 Basophils # (Auto) 0.1 TH/MM3 CBC Comment DIFF FINAL Differential Comment Blood Urea Nitrogen 110 MG/DL Creatinine 8.00 MG/DL Random Glucose 165 MG/DL Total Protein 4.7 GM/DL Albumin 2.0 GM/DL Calcium Level 7.0 MG/DL Alkaline Phosphatase 41 U/L Aspartate Amino Transf (AST/SGOT) 447 U/L Alanine Aminotransferase (ALT/SGPT) 260 U/L Total Bilirubin 0.4 MG/DL Sodium Level 142 MEQ/L Chloride Level 101 MEQ/L Carbon Dioxide Level 26.4 MEQ/L Anion Gap 15 MEQ/L Estimat Glomerular Filtration Rate 5 ML/MIN Protein Corrected Calcium 8.3 MG/DL Total Creatine Kinase GREATER THAN 1400 U/L Creatine Kinase MB 87.8 NG/ML Creatine Kinase MB % 0.0 % Lipase 1085 U/L Complement C3 94 MG/DL Complement C4 20 MG/DL Imaging Last Impressions Chest X-Ray 01/30/17 0000 Signed Impressions: Service Date/Time: Monday, January 30, 2017 13:01 - CONCLUSION: Catheter in good position. Marcos Pelletier MD FACR Liver Ultrasound 01/29/17 0000 Signed Impressions: Service Date/Time: Sunday, January 29, 2017 11:23 - CONCLUSION: Prominent gallbladder without stones or intrahepatic biliary duct dilatation. Marcos Pelletier MD FACR Abdomen/Pelvis CT 01/28/17 1642 Signed Impressions: Service Date/Time: Saturday, January 28, 2017 17:21 - CONCLUSION: No acute disease. Charlie Cheng MD Objective Remarks GENERAL: Patient is lying in bed in NAD SKIN: Warm and dry. HEAD: Normocephalic. EYES: No scleral icterus. No injection or drainage. NECK: Supple, trachea midline. No JVD or lymphadenopathy. CARDIOVASCULAR: Regular rate and rhythm without murmurs, gallops, or rubs. RESPIRATORY: Breath sounds equal bilaterally. No accessory muscle use. GASTROINTESTINAL: Abdomen soft, non-tender, nondistended. MUSCULOSKELETAL: No cyanosis, or edema. Neuro: Awake and alert A/P Assessment and Plan 1. Acute kidney injury. 2. Rhabdomyolysis. 3. Dehydration. 4. Elevated liver enzymes. 5. Anion gap metabolic acidosis...improving 6. Leukocytosis, resolved. 7. Recent urinary tract infection. 8. Anemia. 9. Diabetes mellitus. 10. Hyperlipidemia. 11. Hypertension. 12. Hypothyroidism. Plan Neuro: Monitor neuro status. Awake and alert. Pulm: Oxygen PRN to maintain saturations above 92%. Bronchodilators on a PRN basis. CV: Monitor HR and BP and maintain MAP > 65 mmHg. Lactic acid level 1.0 on 01/28 : Monitor renal function, intake and output and avoid nephrotoxins. HD initiated today with removal 1L. Monitor BMP and lytes closely d/c bicarb drip. Renal- Dr. Lang. Monitor CK's CT scan abdomen and pelvis showed no evidence of any kidney stones, masses or hydronephrosis. GI: On Protonix 40 mg daily for GI prophylaxis. PO diet Monitor LFT's ( trending down) CT abdomen: liver showed no dilation of the biliary tree and no calcified gallstones. ID: Continue with abx( Cefepime) and monitor for signs of infections(Fever and WBCs). urine cx 01/28: No growth Heme: Monitor CBC. Endo: SSI with Accu-Cheks for glycemic control. Continue with Synthroid 100 micrograms p.o. daily. TSH level: 0.74. GI prophylaxis with Protonix 40 milligrams daily and DVT prophylaxis with SCDs and heparin subcutaneous. Lines : Right IJ vascath placed today, peripheral IV's. level 3 Kita Dickinson MD Jan 30, 2017 16:48
--- NOTE | 2017-01-30 17:08 | HHI.NPPN ---
Subjective History of Present Illness 71-year-old female with past medical history of hyperlipidemia, diabetes mellitus, hypertension, recent urinary tract infection, possible chronic kidney disease who came to the hospital with complaint of generalized weakness, pain in the legs and shortness of breath on exertion. I was called to see the patient because of very high BUN and creatinine. The patient was told before that she has renal disease. Additional Remarks Patient seen after HD, feeling better, no SOB, has increase swelling of arms. Review of Systems General Constitutional: Fatigue Objective Data Data 01/30/17 01/31/17 19:00 07:00 Output Total 1000 ml Balance -1000 ml Hemodialysis 1000 ml Vital Signs Date Time Temp Pulse Resp B/P (MAP) Pulse Ox O2 Delivery O2 Flow Rate FiO2 01/30/17 16:30 78 19 125/58 (80) 01/30/17 16:15 80 23 128/59 (82) 01/30/17 16:00 80 01/30/17 16:00 98.4 80 17 112/55 (74) 01/30/17 15:00 78 17 126/50 (75) 01/30/17 14:45 80 18 132/65 (87) 01/30/17 14:38 78 18 140/56 (84) 01/30/17 14:00 76 15 121/50 (73) 01/30/17 14:00 76 01/30/17 13:00 78 15 134/59 (84) 01/30/17 12:45 78 17 130/58 (82) 100 01/30/17 12:40 76 15 129/61 (83) 100 01/30/17 12:35 76 16 122/58 (79) 100 01/30/17 12:30 76 15 135/64 (87) 100 01/30/17 12:27 78 15 138/58 (84) 100 01/30/17 12:01 80 26 117/52 (73) 01/30/17 12:00 78 01/30/17 12:00 97.9 78 20 123/57 (79) 96 01/30/17 11:01 78 15 136/53 (80) 01/30/17 10:01 82 26 135/60 (85) 01/30/17 10:00 80 01/30/17 09:00 78 16 126/49 (74) 01/30/17 08:06 74 16 123/54 (77) 01/30/17 08:00 77 01/30/17 08:00 98.7 74 16 126/58 (80) 97 01/30/17 07:00 74 13 121/52 (75) 01/30/17 06:00 76 18 121/54 (76) 01/30/17 06:00 76 01/30/17 05:00 74 13 120/52 (74) 01/30/17 04:00 76 01/30/17 04:00 98.9 76 14 119/51 (73) 01/30/17 03:00 78 16 121/56 (77) 01/30/17 02:00 76 01/30/17 02:00 76 13 117/49 (71) 01/30/17 01:00 78 14 116/52 (73) 01/30/17 00:00 98.4 80 16 127/56 (79) 01/30/17 00:00 80 01/29/17 23:00 80 15 116/46 (69) 01/29/17 22:00 86 01/29/17 22:00 86 17 137/55 (82) 01/29/17 21:00 86 18 146/74 (98) 01/29/17 20:00 99.1 84 16 142/50 (80) 01/29/17 20:00 84 01/29/17 19:00 84 16 159/59 (92) 01/29/17 18:00 82 22 150/66 (94) 01/29/17 18:00 82 -: 01/30/17 0555 01/30/17 0555 Physical Exam General Appearance: No Acute Distress, Comfortable Eyes Eye Exam: Pupils Equal Throat Throat Exam: Oral Mucosa [place] & Moist Neck Neck Exam: Neck Supple Pulmonary Resp Exam: Breath Sounds Equal, No Distress, Rhonchi, Decreased Bases Cardiology CV Exam: Regular Gastrointestinal/Abdomen GI Exam: Soft, Non-Tender, Bowel Sounds Present Extremeties Extremities Exam: Trace Edema Neurologic Neuro Exam: Alert, Awake, Oriented Psychiatric Psych Exam: Appropriate Responses Assessment/Plan Assessment Summary: CALLY/Acute Renal Failure Electrolyte Assessment: Hypokalemia Problem List: (1) Hypokalemia ICD Codes: E87.6 - Hypokalemia (2) Rhabdomyolysis ICD Codes: M62.82 - Rhabdomyolysis Status: Acute (3) Metabolic acidosis ICD Codes: E87.2 - Acidosis Status: Acute (4) Acute renal failure ICD Codes: N17.9 - Acute kidney failure, unspecified Status: Acute Plan Patient has low urine out put. Creatinine is also increased. Urine out put was low, but now improving. Started on HD after the Vascath. HD done and 1 liter removed. Follow the urine out put and BMP. HD as needed. Problem Qualifiers (1) Rhabdomyolysis: Qualified Codes: M62.82 - Rhabdomyolysis (2) Acute renal failure: Qualified Codes: N17.9 - Acute kidney failure, unspecified Matias Lang MD Jan 30, 2017 17:08
[2017-01-30 20:19] LABS: POTASSIUM 3.3 MEQ/L (3.5-5.1)
[2017-01-30 20:57] LABS: BICARBONATE 31.2 MEQ/L (21.0-32.0)
[2017-01-31] VITALS (25 sets, daily range): BP systolic 100–146; BP diastolic 50–83; PULSE 76–94; RESP 14–26; TEMP 98.3–99.3; O2SAT 92–97
[2017-01-31] MEDS: CEFEPIME INJ 1,000 MG in SODIUM CHLORIDE 0.9% INJ 100 ML IV SCH (00:12)
[2017-01-31] MEDS: CHLORHEXIDINE GLUCONATE 2 % 1 PACK (2 CLOTHS) TOP SCH (04:00)
[2017-01-31] MEDS: LEVOTHYROXINE SODIUM 100 MCG TAB PO SCH (05:41)
[2017-01-31] MEDS: INSULIN ASPART SUPPLEMENTAL SCALE SQ SCH ×4 (05:41→21:09)
[2017-01-31 06:04] LABS: AUTOMATED NEUTROPHIL # 4.9 TH/MM3 (1.8-7.7); BASOPHIL % 0.7 % (0.0-2.0); EOSINOPHIL # 0.3 TH/MM3 (0-0.4); EOSINOPHIL % 4.9 % (0.0-4.0); HEMATOCRIT 25.2 % (35.0-46.0); HEMO FLAGS DIFF FINAL; LYMPH % 11.4 % (9.0-44.0); LYMPHOCYTE # 0.8 TH/MM3 (1.0-4.8); MEAN CELL VOLUME 87.6 FL (80.0-100.0); MEAN CORPUSCULAR HGB CONC 34.2 % (32.0-36.0); MONO % 10.9 % (0.0-8.0); NEUT % 72.1 % (16.0-70.0); PLATELET COUNT 142 TH/MM3 (150-450); RED BLOOD COUNT 2.87 MIL/MM3 (4.00-5.30); RED CELL DISTRIBUTION WIDTH 12.1 % (11.6-17.2); WHITE BLOOD COUNT 6.7 TH/MM3 (4.0-11.0)
[2017-01-31 06:18] LABS: CHLORIDE 98 MEQ/L (98-107); POTASSIUM 3.9 MEQ/L (3.5-5.1); SODIUM (NA) 141 MEQ/L (136-145)
[2017-01-31 06:23] LABS: ANION GAP 11 MEQ/L (5-15); BICARBONATE 31.7 MEQ/L (21.0-32.0)
[2017-01-31 06:29] LABS: ALKALINE PHOSPHATASE 41 U/L (45-117); ALT (GPT) 230 U/L (10-53); AST (GOT) 300 U/L (15-37); BLOOD UREA NITROGEN 81 MG/DL (7-18); GLOMERULAR FILTRATION RATE 6 ML/MIN (>89); TOTAL BILIRUBIN ADULT 0.4 MG/DL (0.2-1.0)
[2017-01-31 06:55] LABS: CREATINE KINASE 11969 U/L (26-192)
[2017-01-31 07:21] LABS: CKMB 41.9 NG/ML (0.5-3.6)
[2017-01-31] MEDS: PANTOPRAZOLE SOD 40 MG DELAYED RELEASE TAB PO SCH (08:44)
[2017-01-31] MEDS: HEPARIN SODIUM - SQ 10,000 UNITS/ML VIAL SQ SCH ×2 (08:44→21:09)
[2017-01-31] MEDS: DOCUSATE SODIUM 50 MG/SENNA 8.6 MG TAB PO SCH ×2 (08:46→21:07)
[2017-01-31] MEDS: SODIUM CHLORIDE 0.9% FLUSH 10 ML FLUSH IV FLUSH SCH ×2 (08:46→21:10)
--- NOTE | 2017-01-31 13:51 | HHI.NPPN ---
Subjective History of Present Illness 71-year-old female with past medical history of hyperlipidemia, diabetes mellitus, hypertension, recent urinary tract infection, possible chronic kidney disease who came to the hospital with complaint of generalized weakness, pain in the legs and shortness of breath on exertion. I was called to see the patient because of very high BUN and creatinine. The patient was told before that she has renal disease. Additional Remarks Patient is alert, eating well, no SOB. Review of Systems General Constitutional: Fatigue Objective Data Data Vital Signs Date Time Temp Pulse Resp B/P (MAP) Pulse Ox O2 Delivery O2 Flow Rate FiO2 01/31/17 13:00 82 24 134/79 (97) 01/31/17 12:00 80 01/31/17 12:00 98.3 80 18 142/68 (92) 93 01/31/17 11:00 80 15 146/59 (88) 01/31/17 10:00 78 01/31/17 10:00 78 16 133/61 (85) 01/31/17 09:00 80 18 124/50 (74) 01/31/17 08:00 80 01/31/17 08:00 95 21 01/31/17 08:00 99.3 80 15 140/60 (86) 92 01/31/17 07:00 80 14 126/56 (79) 01/31/17 06:00 82 01/31/17 06:00 82 15 124/58 (80) 01/31/17 05:00 80 15 121/60 (80) 01/31/17 04:00 82 01/31/17 04:00 98.4 82 16 122/59 (80) 01/31/17 03:00 80 15 131/59 (83) 01/31/17 02:00 78 17 131/59 (83) 01/31/17 02:00 78 01/31/17 01:00 76 16 122/53 (76) 01/31/17 00:00 80 01/31/17 00:00 98.9 80 16 116/57 (76) 01/30/17 23:00 82 17 134/49 (77) 01/30/17 22:00 80 17 136/55 (82) 01/30/17 22:00 80 01/30/17 21:00 84 20 121/51 (74) 01/30/17 20:29 98 21 01/30/17 20:03 98.5 86 22 133/57 (82) 01/30/17 20:00 86 01/30/17 19:00 88 20 137/55 (82) 01/30/17 18:00 86 22 123/69 (87) 01/30/17 18:00 86 01/30/17 17:00 82 14 127/51 (76) 97 01/30/17 16:30 78 19 125/58 (80) 01/30/17 16:15 80 23 128/59 (82) 01/30/17 16:00 80 01/30/17 16:00 98.4 80 17 112/55 (74) 01/30/17 15:00 78 17 126/50 (75) 01/30/17 14:45 80 18 132/65 (87) 01/30/17 14:38 78 18 140/56 (84) 01/30/17 14:00 76 15 121/50 (73) 01/30/17 14:00 76 -: 01/31/17 0545 01/31/17 0545 Physical Exam General Appearance: No Acute Distress, Comfortable Eyes Eye Exam: Pupils Equal Throat Throat Exam: Oral Mucosa [place] & Moist Neck Neck Exam: Neck Supple Pulmonary Resp Exam: Breath Sounds Equal, No Distress, Rhonchi, Decreased Bases Cardiology CV Exam: Regular Gastrointestinal/Abdomen GI Exam: Soft, Non-Tender, Bowel Sounds Present Extremeties Extremities Exam: Trace Edema Neurologic Neuro Exam: Alert, Awake, Oriented Psychiatric Psych Exam: Appropriate Responses Assessment/Plan Assessment Summary: CALLY/Acute Renal Failure Electrolyte Assessment: Hypokalemia Problem List: (1) Hypokalemia ICD Codes: E87.6 - Hypokalemia (2) Rhabdomyolysis ICD Codes: M62.82 - Rhabdomyolysis Status: Acute (3) Metabolic acidosis ICD Codes: E87.2 - Acidosis Status: Acute (4) Acute renal failure ICD Codes: N17.9 - Acute kidney failure, unspecified Status: Acute Plan Patient has low urine out put. Creatinine is also increased. Urine out put is low again. Started on HD after the Vascath. HD due again today. CPK is improving and AST/ALT also decreasing. Follow the urine out put and BMP. HD as needed. Problem Qualifiers (1) Rhabdomyolysis: Qualified Codes: M62.82 - Rhabdomyolysis (2) Acute renal failure: Qualified Codes: N17.9 - Acute kidney failure, unspecified Matias Lang MD Jan 31, 2017 13:51
--- NOTE | 2017-01-31 16:15 | HHI.CCPN ---
Subjective Remarks/Hospital Course Patient is 71-year-old female with past medical history of diabetes mellitus, hypertension, hyperlipidemia, hypothyroidism who presented to the [facility] [facility] with complaints of generalized weakness and body aches. The patient went to see her primary care physician approximately two or three days ago and she was diagnosed with a urinary tract infection and given prescription for Levaquin. She also reports difficulty ambulating and intermittent shortness of breath and dyspnea on exertion. She denies any associated symptoms of chest pain, orthopnea, paroxysmal nocturnal dyspnea or edema of the lower extremities. In addition, she denies any nausea or vomiting , abdominal pain or any gastrointestinal symptoms. In the emergency room, she was found to be in renal failure with a BUN of 100, creatinine 6.30 and hyperkalemic with potassium level 5.6. Also, the patient was in rhabdomyolysis with elevated CKs greater than 14,000 and had elevated liver enzymes. Her AST measured at 1167 and ALT 447. Her urine toxicology screen is negative. In addition her Tylenol level was less than 2.0 and aspirin level is 2.8. She was given a one liter bolus of normal saline, two ampules of sodium bicarb and Kayexalate. The patient was placed on a bicarb drip. When seen, she was lying comfortably in bed in no acute respiratory distress. The patient is on room air oxygen with saturation of 97%, blood pressure 120/63 with a pulse of 80. She had repeat labs last night, which showed creatinine of 6.50 with a potassium of 4.4. Her labs are pending at this point. CT scan of the abdomen and pelvis last night was unremarkable. In addition, she had a chest x-ray which showed no acute cardiopulmonary disease. The patient was placed on Cefepime for urinary tract infection. 01/30 Patient had worsening renal function today with Cr: 8.0 from 7.1 yesterday with poor UOP. She was started on HD today with 1L removal. Awake, alert on room air oxygen, Afebrile. 01/31. Patient sitting in bed comfortable. Alert and orientated. Vital signs are stable. Laboratory studies are improving. Patient is getting ready to undergo dialysis at this time. Objective Vital Signs Date Time Temp Pulse Resp B/P (MAP) Pulse Ox O2 Delivery O2 Flow Rate FiO2 01/31/17 13:00 82 24 134/79 (97) 01/31/17 12:00 98.3 93 01/31/17 08:00 21 01/28/17 22:00 Room Air Intake and Output 01/31/17 01/31/17 02/01/17 08:00 16:00 00:00 Intake Total 100 ml Output Total 50 ml Balance 50 ml Result Diagram: 01/31/17 0545 01/31/17 0545 Other Results Microbiology Date/Time Source Procedure Growth Status 01/28/17 21:00 Urine Clean Catch Urine Culture - Final NO GROWTH IN 48 HOURS. Complete Imaging Last Impressions Chest X-Ray 01/30/17 0000 Signed Impressions: Service Date/Time: Monday, January 30, 2017 13:01 - CONCLUSION: Catheter in good position. Marcos Pelletier MD FACR Liver Ultrasound 01/29/17 0000 Signed Impressions: Service Date/Time: Sunday, January 29, 2017 11:23 - CONCLUSION: Prominent gallbladder without stones or intrahepatic biliary duct dilatation. Marcos Pelletier MD FACR Abdomen/Pelvis CT 01/28/17 1642 Signed Impressions: Service Date/Time: Saturday, January 28, 2017 17:21 - CONCLUSION: No acute disease. Charlie Cheng MD Objective Remarks GENERAL: Well-developed, well-nourished, in no acute distress. alert and orientated HEENT: Head is normocephalic without any lesions or masses noted. Facial features are symmetric. Eyes: Extraocular muscles are intact. Conjunctivae were clear. NECK: Trachea midline no deviation. No JVD, CARDIAC: Regular rhythm, regular rate. S1/S2 are heard. No murmurs gallops or rubs. LUNGS: Clear to auscultation bilaterally. No wheeze, rhonchi or rales. No use of accessory muscles on inspiration or expiration. ABDOMEN: Soft, nontender. Nondistended. Bowel sounds heard in all 4 quadrants. No organomegaly or masses. Negative rebound, negative guarding EXTREMITIES: Arms and legs are edematous, however no pitting edema pulses are equal bilaterally. No cyanosis or clubbing NEUROLOGY: Mood and affect appear appropriate. Cranial nerves II through XII grossly intact. Moving all extremities, speech is clear Urinary Catheter: Yes Assessment to: Continue Elizabeth insert reason: Measure Accurate Output Vascular Central Line Catheter: Yes Assessment to: Continue Date of Insertion: Jan 30, 2017 Line: Central Venous Catheter Side: Right Location: Internal, Jugular A/P Problem List: (1) Rhabdomyolysis ICD Code: M62.82 - Rhabdomyolysis Status: Acute (2) Metabolic acidosis ICD Code: E87.2 - Acidosis Status: Acute (3) Acute renal failure ICD Code: N17.9 - Acute kidney failure, unspecified Status: Acute (4) Transaminitis ICD Code: R74.0 - Nonspecific elevation of levels of transaminase and lactic acid dehydrogenase [LDH] Status: Acute (5) Hypokalemia ICD Code: E87.6 - Hypokalemia (6) Leucocytosis ICD Code: D72.829 - Elevated white blood cell count, unspecified (7) Diabetes ICD Code: E11.9 - Type 2 diabetes mellitus without complications (8) Hypertension ICD Code: I10 - Essential (primary) hypertension (9) Hyperlipidemia ICD Code: E78.5 - Hyperlipidemia, unspecified (10) Hypothyroidism ICD Code: E03.9 - Hypothyroidism, unspecified Assessment and Plan Neuro: Monitor neuro status. Awake and alert. Pulm: Oxygen PRN to maintain saturations above 92%. Bronchodilators on a PRN basis. CV: Monitor HR and BP and maintain MAP > 65 mmHg. Lactic acid level 1.0 on 01/28 : Monitor renal function, intake and output and avoid nephrotoxins. HD done again today, monitor BMP and lytes closely Discontinued bicarb drip. Renal- Dr. Lang. Monitor CK's CT scan abdomen and pelvis showed no evidence of any kidney stones, masses or hydronephrosis. GI: On Protonix 40 mg daily for GI prophylaxis. PO diet Monitor LFT's ( trending down) CT abdomen: liver showed no dilation of the biliary tree and no calcified gallstones. ID: Discontinue ( Cefepime) no signs of any infection,. Leukocytosis resolved, urine cx 01/28: No growth Heme: Monitor CBC. Endo: SSI with Accu-Cheks for glycemic control. Continue with Synthroid 100 micrograms p.o. daily. TSH level: 0.74. GI prophylaxis with Protonix 40 milligrams daily and DVT prophylaxis with SCDs and heparin subcutaneous. Lines : Right IJ vascath 01/30/17, #2, peripheral IV's. level 3 Patient clinically improving nicely. Critical care will sign off, consult hospitalist to assume medical management tomorrow. The exam, history, and the medical decision-making described in the above note were completed with the assistance of CARTER Baeza. I reviewed and agree with the findings presented. I attest that I had a [id number] encounter with the patient on the same day, and personally performed and documented my assessment and findings in the medical record. Problem Qualifiers (1) Rhabdomyolysis: Qualified Codes: M62.82 - Rhabdomyolysis (2) Acute renal failure: Qualified Codes: N17.9 - Acute kidney failure, unspecified Chris Barlow Jan 31, 2017 16:15 Kita Dickinson MD Jan 31, 2017 16:27
[2017-01-31] MEDS: GENTAMICIN SULFATE (DIALYSIS USE ONLY) 20 MG/2 ML VIAL OTHER PRN (17:40)
[2017-01-31] MEDS: HEPARIN SODIUM - IV 10,000 UNITS/10 ML VIAL OTHER PRN (17:40)
[2017-01-31] MEDS ORDERED: SODIUM CHLOR 0.9% 1000 ML OTHER PRN ×2 (17:45)
[2017-01-31] MEDS ORDERED: NS 250 ML IV PRN (17:45)
[2017-01-31] MEDS ORDERED: GELATIN 12 MM/7 MM FOAM TOPICAL PRN (17:45)
[2017-01-31] MEDS ORDERED: SODIUM CHLORIDE 0.9% FLUSH 10 ML FLUSH IV FLUSH PRN (17:45)
[2017-01-31] MEDS ORDERED: HEPARIN SODIUM - IV 10,000 UNITS/10 ML VIAL IV FLUSH PRN (17:45)
[2017-01-31] MEDS ORDERED: ALBUMIN HUMAN 25% 25 GM/100 ML BAGP IV PRN (17:45)
[2017-01-31] MEDS ORDERED: NITROGLYCERIN 0.4 MG SL 25 TABS/BTL SL PRN (17:45)
[2017-01-31] MEDS ORDERED: diphenhydrAMINE HCL 25 MG CAP PO PRN (17:45)
[2017-01-31] MEDS ORDERED: cloNIDine HCL 0.1 MG TAB PO PRN (17:45)
[2017-01-31] MEDS ORDERED: MANNITOL 12.5 GM/50 ML VIAL IV PRN (17:45)
[2017-01-31] MEDS ORDERED: ONDANSETRON HCL 4 MG/2 ML VIAL IV PRN (17:45)
[2017-02-01] VITALS (18 sets, daily range): BP systolic 122–151; BP diastolic 53–78; PULSE 72–82; RESP 12–24; TEMP 97.5–98.8; O2SAT 91–98
[2017-02-01] MEDS: CHLORHEXIDINE GLUCONATE 2 % 1 PACK (2 CLOTHS) TOP SCH (04:00)
[2017-02-01 04:26] LABS: AUTOMATED NEUTROPHIL # 5.4 TH/MM3 (1.8-7.7); BASOPHIL % 0.6 % (0.0-2.0); EOSINOPHIL # 0.3 TH/MM3 (0-0.4); EOSINOPHIL % 4.4 % (0.0-4.0); HEMATOCRIT 25.4 % (35.0-46.0); HEMO FLAGS DIFF FINAL; LYMPH % 12.2 % (9.0-44.0); LYMPHOCYTE # 0.9 TH/MM3 (1.0-4.8); MEAN CELL VOLUME 89.1 FL (80.0-100.0); MEAN CORPUSCULAR HEMOGLOBIN 29.7 PG (27.0-34.0); MEAN CORPUSCULAR HGB CONC 33.4 % (32.0-36.0); MONO % 11.4 % (0.0-8.0); NEUT % 71.4 % (16.0-70.0); PLATELET COUNT 128 TH/MM3 (150-450); RED BLOOD COUNT 2.85 MIL/MM3 (4.00-5.30); RED CELL DISTRIBUTION WIDTH 12.7 % (11.6-17.2); WHITE BLOOD COUNT 7.5 TH/MM3 (4.0-11.0)
[2017-02-01 04:35] LABS: CHLORIDE 100 MEQ/L (98-107); POTASSIUM 3.8 MEQ/L (3.5-5.1); SODIUM (NA) 141 MEQ/L (136-145)
[2017-02-01 04:40] LABS: ANION GAP 12 MEQ/L (5-15); BICARBONATE 29.5 MEQ/L (21.0-32.0); BLOOD UREA NITROGEN 73 MG/DL (7-18)
[2017-02-01 04:43] LABS: ALT (GPT) 210 U/L (10-53); AST (GOT) 225 U/L (15-37); GLOMERULAR FILTRATION RATE 6 ML/MIN (>89)
[2017-02-01 04:55] LABS: ALKALINE PHOSPHATASE 40 U/L (45-117); TOTAL BILIRUBIN ADULT 0.4 MG/DL (0.2-1.0)
[2017-02-01 05:52] LABS: CREATINE KINASE 7193 U/L (26-192)
[2017-02-01 06:09] LABS: CKMB 35.9 NG/ML (0.5-3.6)
[2017-02-01] MEDS: LEVOTHYROXINE SODIUM 100 MCG TAB PO SCH (06:48)
[2017-02-01] MEDS: INSULIN ASPART SUPPLEMENTAL SCALE SQ SCH ×4 (06:49→22:08)
[2017-02-01] MEDS: DOCUSATE SODIUM 50 MG/SENNA 8.6 MG TAB PO SCH ×2 (08:49→21:00)
[2017-02-01] MEDS: SODIUM CHLORIDE 0.9% FLUSH 10 ML FLUSH IV FLUSH SCH ×2 (08:49→22:01)
[2017-02-01] MEDS: PANTOPRAZOLE SOD 40 MG DELAYED RELEASE TAB PO SCH (08:49)
[2017-02-01] MEDS: HEPARIN SODIUM - SQ 10,000 UNITS/ML VIAL SQ SCH ×2 (08:49→21:00)
--- NOTE | 2017-02-01 12:36 | HHI.PR ---
Subjective Remarks Renal function is improved with creatinine of 6.5, dialysis yesterday. Her rhabdomyolysis also improved with a total creatinine kinase of 7193. Slow improvement in LFTs. Her platelets are also decreased today but over 100. Objective Vital Signs Date Time Temp Pulse Resp B/P (MAP) Pulse Ox O2 Delivery O2 Flow Rate FiO2 02/01/17 11:00 82 22 147/78 (101) 02/01/17 10:00 78 02/01/17 10:00 78 21 150/65 (93) 02/01/17 09:00 72 19 149/70 (96) 93 02/01/17 08:41 96 21 02/01/17 08:00 97.5 76 24 137/65 (89) 93 02/01/17 08:00 80 02/01/17 07:00 80 19 144/66 (92) 02/01/17 06:00 98.7 74 12 122/68 (86) 02/01/17 06:00 74 02/01/17 05:00 76 15 146/63 (90) 02/01/17 04:00 76 02/01/17 04:00 76 13 137/56 (83) 02/01/17 03:00 98.5 78 14 134/63 (86) 02/01/17 02:00 76 02/01/17 01:00 78 14 138/62 (87) 02/01/17 00:00 98.8 76 18 122/53 (76) 02/01/17 00:00 76 01/31/17 23:40 97 21 01/31/17 23:00 78 18 120/56 (77) 01/31/17 22:00 82 01/31/17 22:00 82 20 129/55 (79) 01/31/17 21:00 82 20 121/59 (79) 01/31/17 20:00 84 01/31/17 20:00 84 20 116/71 (86) 01/31/17 19:00 99.2 86 22 122/51 (74) 01/31/17 18:00 86 01/31/17 18:00 86 20 111/83 (92) 01/31/17 17:00 94 18 100/55 (70) 01/31/17 16:00 98.7 80 18 131/61 (84) 94 01/31/17 16:00 80 01/31/17 15:00 82 26 143/63 (89) 01/31/17 14:00 82 21 141/68 (92) 01/31/17 14:00 82 01/31/17 13:00 82 24 134/79 (97) I/O 01/31/17 01/31/17 01/31/17 02/01/17 02/01/17 02/01/17 07:00 15:00 23:00 07:00 15:00 23:00 Intake Total 100 ml Output Total 50 ml 2500 ml 100 ml Balance 50 ml -2500 ml -100 ml IV Total 100 ml Output Urine Total 50 ml 100 ml Hemodialysis 2500 ml Result Diagram: 02/01/1741102/01/17411 Objective Remarks GENERAL: NAD, A&Ox3 HEAD: Normocephalic. NECK: Supple, trachea midline. No lymphadenopathy. EYES: No scleral icterus. No injection or drainage. CARDIOVASCULAR: Regular rate and rhythm without murmurs, gallops, or rubs. RESPIRATORY: Breath sounds equal bilaterally. No accessory muscle use. GASTROINTESTINAL: Abdomen soft, non-tender, nondistended. MUSCULOSKELETAL: No cyanosis, or edema. SKIN: Warm and dry. NEURO: No focal neurological deficitis. A/P Problem List: (1) Hyperkalemia ICD Code: E87.5 - Hyperkalemia Status: Acute (2) Acute renal failure ICD Code: N17.9 - Acute kidney failure, unspecified Status: Acute (3) Rhabdomyolysis ICD Code: M62.82 - Rhabdomyolysis Status: Acute (4) Metabolic acidosis ICD Code: E87.2 - Acidosis Status: Acute (5) Transaminitis ICD Code: R74.0 - Nonspecific elevation of levels of transaminase and lactic acid dehydrogenase [LDH] Status: Acute (6) Hypertension ICD Code: I10 - Essential (primary) hypertension (7) Leucocytosis ICD Code: D72.829 - Elevated white blood cell count, unspecified (8) Hypokalemia ICD Code: E87.6 - Hypokalemia (9) Diabetes ICD Code: E11.9 - Type 2 diabetes mellitus without complications (10) Hyperlipidemia ICD Code: E78.5 - Hyperlipidemia, unspecified (11) Hypothyroidism ICD Code: E03.9 - Hypothyroidism, unspecified Assessment and Plan Assessment and plan 71-year-old female admitted with acute renal failure and rhabdomyolysis. Transfer out of ICU today. Acute renal failure Rhabdomyolysis Possible ATN Continue dialysis as needed Follow BMP and electrolytes Nephrology following Monitor creatinine kinase No evidence of structural abnormalities on imaging Transaminitis Follow LFTs Currently she is in a downward trend Hypertension No change blood pressure treatments Follow clinically Monitor blood pressures Hyperlipidemia Statins on hold for now due to rhabdomyolysis She's been on statins chronically before these acute issues Hypothyroidism Continue supplements Monitor as an outpatient Metabolic acidosis Resolved Hypokalemia Monitor and replace as needed Diabetes Insulin sliding scale Diabetic diet Follow blood sugars DVT prophylaxis SCDs Heparin Lines Right IJ vascath 01/30/17 peripheral IV's. Problem Qualifiers (1) Acute renal failure: Qualified Codes: N17.9 - Acute kidney failure, unspecified (2) Rhabdomyolysis: Qualified Codes: M62.82 - Rhabdomyolysis Russell Keenan MD Feb 01, 2017 12:36
--- NOTE | 2017-02-01 20:20 | HHI.NPPN ---
Subjective History of Present Illness 71-year-old female with past medical history of hyperlipidemia, diabetes mellitus, hypertension, recent urinary tract infection, possible chronic kidney disease who came to the hospital with complaint of generalized weakness, pain in the legs and shortness of breath on exertion. I was called to see the patient because of very high BUN and creatinine. The patient was told before that she has renal disease. Additional Remarks Patient is alert, sitting on chair, feeling better. Review of Systems General Constitutional: Fatigue Objective Data Data Vital Signs Date Time Temp Pulse Resp B/P (MAP) Pulse Ox O2 Delivery O2 Flow Rate FiO2 02/01/17 16:00 98.7 80 18 132/64 (86) 02/01/17 13:00 78 02/01/17 12:00 98.3 76 22 127/70 (89) 94 02/01/17 12:00 76 02/01/17 11:00 82 22 147/78 (101) 02/01/17 10:00 78 02/01/17 10:00 78 21 150/65 (93) 02/01/17 09:00 72 19 149/70 (96) 93 02/01/17 08:41 96 21 02/01/17 08:00 97.5 76 24 137/65 (89) 93 02/01/17 08:00 80 02/01/17 07:00 80 19 144/66 (92) 02/01/17 06:00 98.7 74 12 122/68 (86) 02/01/17 06:00 74 02/01/17 05:00 76 15 146/63 (90) 02/01/17 04:00 76 02/01/17 04:00 76 13 137/56 (83) 02/01/17 03:00 98.5 78 14 134/63 (86) 02/01/17 02:00 76 02/01/17 01:00 78 14 138/62 (87) 02/01/17 00:00 98.8 76 18 122/53 (76) 02/01/17 00:00 76 01/31/17 23:40 97 21 01/31/17 23:00 78 18 120/56 (77) 01/31/17 22:00 82 01/31/17 22:00 82 20 129/55 (79) 01/31/17 21:00 82 20 121/59 (79) -: 02/01/17 0412 02/01/17 0412 Physical Exam General Appearance: No Acute Distress, Comfortable Eyes Eye Exam: Pupils Equal Throat Throat Exam: Oral Mucosa [place] & Moist Neck Neck Exam: Neck Supple Pulmonary Resp Exam: Breath Sounds Equal, No Distress, Rhonchi, Decreased Bases Cardiology CV Exam: Regular Gastrointestinal/Abdomen GI Exam: Soft, Non-Tender, Bowel Sounds Present Extremeties Extremities Exam: Trace Edema Neurologic Neuro Exam: Alert, Awake, Oriented Psychiatric Psych Exam: Appropriate Responses Assessment/Plan Assessment Summary: CALLY/Acute Renal Failure Electrolyte Assessment: Hypokalemia Problem List: (1) Hypokalemia ICD Codes: E87.6 - Hypokalemia (2) Rhabdomyolysis ICD Codes: M62.82 - Rhabdomyolysis Status: Acute (3) Metabolic acidosis ICD Codes: E87.2 - Acidosis Status: Acute (4) Acute renal failure ICD Codes: N17.9 - Acute kidney failure, unspecified Status: Acute Plan Patient has low urine out put. Creatinine is also increased. Urine out put is low again. Started on HD after the Vascath. HD done yesterday, tolerated well. CPK is improving and AST/ALT also decreasing. Follow the urine out put and BMP. HD as needed. Still not much improvement in renal function or urine out put. Problem Qualifiers (1) Rhabdomyolysis: Qualified Codes: M62.82 - Rhabdomyolysis (2) Acute renal failure: Qualified Codes: N17.9 - Acute kidney failure, unspecified Matias Lang MD Feb 01, 2017 20:20
[2017-02-02] VITALS: BP 141/73; PULSE 78; RESP 18; TEMP 97.4; O2SAT 98
[2017-02-02] MEDS: CHLORHEXIDINE GLUCONATE 2 % 1 PACK (2 CLOTHS) TOP SCH (02:59)
[2017-02-02 04:00] VITALS: BP 145/63; PULSE 76; RESP 16; TEMP 97.6; O2SAT 98
[2017-02-02] MEDS: LEVOTHYROXINE SODIUM 100 MCG TAB PO SCH (06:08)
[2017-02-02 06:12] LABS: AUTOMATED NEUTROPHIL # 5.6 TH/MM3 (1.8-7.7); BASOPHIL % 0.6 % (0.0-2.0); EOSINOPHIL # 0.5 TH/MM3 (0-0.4); EOSINOPHIL % 6.2 % (0.0-4.0); HEMATOCRIT 24.8 % (35.0-46.0); HEMO FLAGS DIFF FINAL; LYMPH % 10.2 % (9.0-44.0); LYMPHOCYTE # 0.8 TH/MM3 (1.0-4.8); MEAN CELL VOLUME 89.2 FL (80.0-100.0); MEAN CORPUSCULAR HEMOGLOBIN 30.2 PG (27.0-34.0); MEAN CORPUSCULAR HGB CONC 33.8 % (32.0-36.0); MONO % 10.3 % (0.0-8.0); NEUT % 72.7 % (16.0-70.0); PLATELET COUNT 142 TH/MM3 (150-450); RED BLOOD COUNT 2.78 MIL/MM3 (4.00-5.30); RED CELL DISTRIBUTION WIDTH 12.2 % (11.6-17.2); WHITE BLOOD COUNT 7.7 TH/MM3 (4.0-11.0)
[2017-02-02 06:23] LABS: CHLORIDE 97 MEQ/L (98-107); POTASSIUM 4.1 MEQ/L (3.5-5.1); SODIUM (NA) 138 MEQ/L (136-145)
[2017-02-02 06:32] LABS: ANION GAP 15 MEQ/L (5-15); BICARBONATE 25.8 MEQ/L (21.0-32.0)
[2017-02-02 06:54] LABS: ALKALINE PHOSPHATASE 42 U/L (45-117); ALT (GPT) 195 U/L (10-53); AST (GOT) 167 U/L (15-37); BLOOD UREA NITROGEN 95 MG/DL (7-18); CREATINE KINASE 4314 U/L (26-192); GLOMERULAR FILTRATION RATE 5 ML/MIN (>89); TOTAL BILIRUBIN ADULT 0.4 MG/DL (0.2-1.0)
[2017-02-02] MEDS: INSULIN ASPART SUPPLEMENTAL SCALE SQ SCH ×4 (07:00→21:58)
[2017-02-02 07:18] LABS: CKMB 26.3 NG/ML (0.5-3.6)
[2017-02-02] MEDS: HEPARIN SODIUM - IV 10,000 UNITS/10 ML VIAL IV FLUSH PRN (08:07)
[2017-02-02] MEDS: GENTAMICIN SULFATE (DIALYSIS USE ONLY) 20 MG/2 ML VIAL OTHER PRN (08:07)
[2017-02-02] MEDS: SODIUM CHLORIDE 0.9% FLUSH 10 ML FLUSH IV FLUSH SCH ×2 (08:34→21:47)
[2017-02-02] MEDS: DOCUSATE SODIUM 50 MG/SENNA 8.6 MG TAB PO SCH ×2 (09:00→21:46)
--- NOTE | 2017-02-02 10:28 | HHI.PR ---
Subjective Remarks Renal function worsen. Dialysis occurring today. Total creatinine kinase has decreased again to 4314 now. LFTs also have a downward trend towards normal. Objective Vital Signs Date Time Temp Pulse Resp B/P (MAP) Pulse Ox O2 Delivery O2 Flow Rate FiO2 02/02/17 04:00 97.6 76 16 145/63 (90) 98 02/02/17 00:00 97.4 78 18 141/73 (95) 98 02/01/17 20:55 98 21 02/01/17 20:00 98.0 81 18 151/67 (95) 91 02/01/17 16:00 98.7 80 18 132/64 (86) 02/01/17 13:00 78 02/01/17 12:00 98.3 76 22 127/70 (89) 94 02/01/17 12:00 76 02/01/17 11:00 82 22 147/78 (101) I/O 02/01/17 02/01/17 02/01/17 02/02/17 02/02/17 02/02/17 07:00 15:00 23:00 07:00 15:00 23:00 Output Total 100 ml 2000 ml Balance -100 ml -2000 ml Output Urine Total 100 ml Hemodialysis 2000 ml Result Diagram: 02/02/17 0602/02/17 0600 Objective Remarks GENERAL: NAD, A&Ox3 HEAD: Normocephalic. NECK: Supple, trachea midline. No lymphadenopathy. EYES: No scleral icterus. No injection or drainage. CARDIOVASCULAR: Regular rate and rhythm without murmurs, gallops, or rubs. RESPIRATORY: Breath sounds equal bilaterally. No accessory muscle use. GASTROINTESTINAL: Abdomen soft, non-tender, nondistended. MUSCULOSKELETAL: No cyanosis, or edema. SKIN: Warm and dry. NEURO: No focal neurological deficitis. A/P Problem List: (1) Hyperkalemia ICD Code: E87.5 - Hyperkalemia Status: Acute (2) Acute renal failure ICD Code: N17.9 - Acute kidney failure, unspecified Status: Acute (3) Rhabdomyolysis ICD Code: M62.82 - Rhabdomyolysis Status: Acute (4) Metabolic acidosis ICD Code: E87.2 - Acidosis Status: Acute (5) Transaminitis ICD Code: R74.0 - Nonspecific elevation of levels of transaminase and lactic acid dehydrogenase [LDH] Status: Acute (6) Hypertension ICD Code: I10 - Essential (primary) hypertension (7) Leucocytosis ICD Code: D72.829 - Elevated white blood cell count, unspecified (8) Hypokalemia ICD Code: E87.6 - Hypokalemia (9) Diabetes ICD Code: E11.9 - Type 2 diabetes mellitus without complications (10) Hyperlipidemia ICD Code: E78.5 - Hyperlipidemia, unspecified (11) Hypothyroidism ICD Code: E03.9 - Hypothyroidism, unspecified Assessment and Plan Assessment and plan 71-year-old female admitted with acute renal failure and rhabdomyolysis. Follow renal function. Follow phosphorus and magnesium levels. Labs ordered for the morning including BMP and CBC. Continue to follow total creatinine kinase and LFTs. Acute renal failure Rhabdomyolysis Not yet showing signs of improvement Possible ATN Continue dialysis as needed Follow BMP and electrolytes Nephrology following Monitor creatinine kinase No evidence of structural abnormalities on imaging Transaminitis Follow LFTs Currently she is in a downward trend Hypertension No change blood pressure treatments Follow clinically Monitor blood pressures Hyperlipidemia Statins on hold for now due to rhabdomyolysis She's been on statins chronically before these acute issues Hypothyroidism Continue supplements Monitor as an outpatient Metabolic acidosis Resolved Hypokalemia Monitor and replace as needed Diabetes Insulin sliding scale Diabetic diet Follow blood sugars DVT prophylaxis SCDs Heparin Lines Right IJ vascath 01/30/17 peripheral IV's. Problem Qualifiers (1) Acute renal failure: Qualified Codes: N17.9 - Acute kidney failure, unspecified (2) Rhabdomyolysis: Qualified Codes: M62.82 - Rhabdomyolysis Russell Keenan MD Feb 02, 2017 10:28
--- NOTE | 2017-02-02 11:25 | HHI.NPPN ---
Subjective History of Present Illness 71-year-old female with past medical history of hyperlipidemia, diabetes mellitus, hypertension, recent urinary tract infection, possible chronic kidney disease who came to the hospital with complaint of generalized weakness, pain in the legs and shortness of breath on exertion. I was called to see the patient because of very high BUN and creatinine. The patient was told before that she has renal disease. Additional Remarks Patient is alert, seen after HD, not in distress. Review of Systems General Constitutional: Fatigue Objective Data Data 02/02/17 02/03/17 18:59 06:59 Output Total 2000 ml Balance -2000 ml Hemodialysis 2000 ml Vital Signs Date Time Temp Pulse Resp B/P (MAP) Pulse Ox O2 Delivery O2 Flow Rate FiO2 02/02/17 04:00 97.6 76 16 145/63 (90) 98 02/02/17 00:00 97.4 78 18 141/73 (95) 98 02/01/17 20:55 98 21 02/01/17 20:00 98.0 81 18 151/67 (95) 91 02/01/17 16:00 98.7 80 18 132/64 (86) 02/01/17 13:00 78 02/01/17 12:00 98.3 76 22 127/70 (89) 94 02/01/17 12:00 76 -: 02/02/17 0600 02/02/17 0600 Physical Exam General Appearance: No Acute Distress, Comfortable Eyes Eye Exam: Pupils Equal Throat Throat Exam: Oral Mucosa [place] & Moist Neck Neck Exam: Neck Supple Pulmonary Resp Exam: Breath Sounds Equal, No Distress, Rhonchi, Decreased Bases Cardiology CV Exam: Regular Gastrointestinal/Abdomen GI Exam: Soft, Non-Tender, Bowel Sounds Present Extremeties Extremities Exam: Trace Edema Neurologic Neuro Exam: Alert, Awake, Oriented Psychiatric Psych Exam: Appropriate Responses Assessment/Plan Assessment Summary: CALLY/Acute Renal Failure Electrolyte Assessment: Hypokalemia Problem List: (1) Hypokalemia ICD Codes: E87.6 - Hypokalemia (2) Rhabdomyolysis ICD Codes: M62.82 - Rhabdomyolysis Status: Acute (3) Metabolic acidosis ICD Codes: E87.2 - Acidosis Status: Acute (4) Acute renal failure ICD Codes: N17.9 - Acute kidney failure, unspecified Status: Acute Plan Patient has low urine out put. Creatinine is also increased. Urine out put is low again. Started on HD after the Vascath. CPK is improving and AST/ALT also decreasing. Follow the urine out put and BMP. Still not much improvement in renal function or urine out put. HD done and 2 liters removed. Tolerated well. Will try to get old labs to see previous Creatinine. Problem Qualifiers (1) Rhabdomyolysis: Qualified Codes: M62.82 - Rhabdomyolysis (2) Acute renal failure: Qualified Codes: N17.9 - Acute kidney failure, unspecified Matias Lang MD Feb 02, 2017 11:25
[2017-02-02] MEDS: PANTOPRAZOLE SOD 40 MG DELAYED RELEASE TAB PO SCH (11:39)
[2017-02-02] MEDS: HEPARIN SODIUM - SQ 10,000 UNITS/ML VIAL SQ SCH ×2 (11:40→21:00)
[2017-02-02 12:00] VITALS: BP 120/78; PULSE 80; RESP 19; TEMP 97.7; O2SAT 96
[2017-02-02 16:00] VITALS: BP 143/67; PULSE 81; RESP 20; TEMP 97.7; O2SAT 96
[2017-02-02 20:00] VITALS: BP 147/74; PULSE 78; PULSE 83; RESP 18; TEMP 96.7; O2SAT 96
[2017-02-02 20:06] VITALS: O2SAT 93
[2017-02-03] VITALS (8 sets, daily range): BP systolic 132–148; BP diastolic 68–77; PULSE 72–80; RESP 17–20; TEMP 96.6–98.7; O2SAT 93–98
[2017-02-03] MEDS: CHLORHEXIDINE GLUCONATE 2 % 1 PACK (2 CLOTHS) TOP SCH (03:01)
[2017-02-03 05:57] LABS: AUTOMATED NEUTROPHIL # 5.4 TH/MM3 (1.8-7.7); BASOPHIL % 0.6 % (0.0-2.0); EOSINOPHIL # 0.4 TH/MM3 (0-0.4); EOSINOPHIL % 5.2 % (0.0-4.0); HEMATOCRIT 23.6 % (35.0-46.0); HEMO FLAGS DIFF FINAL; LYMPH % 11.8 % (9.0-44.0); LYMPHOCYTE # 0.9 TH/MM3 (1.0-4.8); MEAN CORPUSCULAR HEMOGLOBIN 29.6 PG (27.0-34.0); MEAN CORPUSCULAR HGB CONC 33.6 % (32.0-36.0); MONO % 11.7 % (0.0-8.0); NEUT % 70.7 % (16.0-70.0); PLATELET COUNT 165 TH/MM3 (150-450); RED BLOOD COUNT 2.69 MIL/MM3 (4.00-5.30); WHITE BLOOD COUNT 7.6 TH/MM3 (4.0-11.0)
[2017-02-03 06:13] LABS: CHLORIDE 96 MEQ/L (98-107); POTASSIUM 3.7 MEQ/L (3.5-5.1); SODIUM (NA) 138 MEQ/L (136-145)
[2017-02-03 06:22] LABS: ANION GAP 14 MEQ/L (5-15); BICARBONATE 28.5 MEQ/L (21.0-32.0); BLOOD UREA NITROGEN 64 MG/DL (7-18); MAGNESIUM 1.9 MG/DL (1.5-2.5)
[2017-02-03 06:25] LABS: ALT (GPT) 186 U/L (10-53); AST (GOT) 130 U/L (15-37); GLOMERULAR FILTRATION RATE 6 ML/MIN (>89)
[2017-02-03 06:27] LABS: TOTAL BILIRUBIN ADULT 0.4 MG/DL (0.2-1.0)
[2017-02-03 06:28] LABS: ALKALINE PHOSPHATASE 46 U/L (45-117)
[2017-02-03 06:40] LABS: CREATINE KINASE 2382 U/L (26-192)
[2017-02-03] MEDS: LEVOTHYROXINE SODIUM 100 MCG TAB PO SCH (06:43)
[2017-02-03] MEDS: INSULIN ASPART SUPPLEMENTAL SCALE SQ SCH ×4 (07:00→21:04)
[2017-02-03 07:10] LABS: CKMB 11.1 NG/ML (0.5-3.6)
[2017-02-03] MEDS: SODIUM CHLORIDE 0.9% FLUSH 10 ML FLUSH IV FLUSH SCH ×2 (08:15→20:50)
[2017-02-03] MEDS: HEPARIN SODIUM - SQ 10,000 UNITS/ML VIAL SQ SCH ×2 (09:06→20:49)
[2017-02-03] MEDS: PANTOPRAZOLE SOD 40 MG DELAYED RELEASE TAB PO SCH (09:06)
[2017-02-03] MEDS: DOCUSATE SODIUM 50 MG/SENNA 8.6 MG TAB PO SCH ×2 (09:07→20:49)
--- NOTE | 2017-02-03 10:10 | HHI.PR ---
Subjective Remarks Renal function improved after dialysis. Slight downward trend in hemoglobin hemoglobin is 7.9. LFTs are slightly decreased. Total creatinine kinase also decreased. Ambulation is improving with PT. Objective Vital Signs Date Time Temp Pulse Resp B/P (MAP) Pulse Ox O2 Delivery O2 Flow Rate FiO2 02/03/17 08:00 98.2 78 19 136/71 (92) 97 02/03/17 08:00 97 21 02/03/17 04:00 97.8 76 20 138/70 (92) 95 02/03/17 00:00 97.0 77 18 133/75 (94) 93 02/02/17 20:06 93 21 02/02/17 20:00 83 02/02/17 20:00 96.7 78 18 147/74 (98) 96 02/02/17 16:00 97.7 81 20 143/67 (92) 96 02/02/17 12:00 97.7 80 19 120/78 (92) 96 I/O 02/02/17 02/02/17 02/02/17 02/03/17 02/03/17 02/03/17 07:00 15:00 23:00 07:00 15:00 23:00 Intake Total 480 ml 60 ml Output Total 2100 ml 375 ml Balance -2100 ml 480 ml -315 ml Intake Oral 480 ml 60 ml Output Urine Total 100 ml 375 ml Hemodialysis 2000 ml # Voids 2 # Bowel Movements 0 Result Diagram: 02/03/1733 02/03/17 0533 Objective Remarks GENERAL: NAD, A&Ox3 HEAD: Normocephalic. NECK: Supple, trachea midline. No lymphadenopathy. EYES: No scleral icterus. No injection or drainage. CARDIOVASCULAR: Regular rate and rhythm without murmurs, gallops, or rubs. RESPIRATORY: Breath sounds equal bilaterally. No accessory muscle use. GASTROINTESTINAL: Abdomen soft, non-tender, nondistended. MUSCULOSKELETAL: No cyanosis, or edema. SKIN: Warm and dry. NEURO: No focal neurological deficitis. A/P Problem List: (1) Hyperkalemia ICD Code: E87.5 - Hyperkalemia Status: Acute (2) Acute renal failure ICD Code: N17.9 - Acute kidney failure, unspecified Status: Acute (3) Rhabdomyolysis ICD Code: M62.82 - Rhabdomyolysis Status: Acute (4) Metabolic acidosis ICD Code: E87.2 - Acidosis Status: Acute (5) Transaminitis ICD Code: R74.0 - Nonspecific elevation of levels of transaminase and lactic acid dehydrogenase [LDH] Status: Acute (6) Hypertension ICD Code: I10 - Essential (primary) hypertension (7) Leucocytosis ICD Code: D72.829 - Elevated white blood cell count, unspecified (8) Hypokalemia ICD Code: E87.6 - Hypokalemia (9) Diabetes ICD Code: E11.9 - Type 2 diabetes mellitus without complications (10) Hyperlipidemia ICD Code: E78.5 - Hyperlipidemia, unspecified (11) Hypothyroidism ICD Code: E03.9 - Hypothyroidism, unspecified Assessment and Plan Assessment and plan 71-year-old female admitted with acute renal failure and rhabdomyolysis. Now in acute renal failure, possibly chronic renal failure. Continue to Follow renal function. Follow phosphorus level. Labs ordered for tomorrow morning to follow renal function, anemia, creatinine kinase, and electrolytes. Acute renal failure Rhabdomyolysis Not yet showing signs of improvement Possible ATN Continue dialysis as needed Follow BMP and electrolytes Nephrology following Monitor creatinine kinase No evidence of structural abnormalities on imaging Transaminitis Follow LFTs Currently she is in a downward trend Hypertension No change blood pressure treatments Follow clinically Monitor blood pressures Hyperlipidemia Statins on hold for now due to rhabdomyolysis She's been on statins chronically before these acute issues Hypothyroidism Continue supplements Monitor as an outpatient Metabolic acidosis Resolved Hypokalemia Monitor and replace as needed Diabetes Insulin sliding scale Diabetic diet Follow blood sugars DVT prophylaxis SCDs Heparin Lines Right IJ vascath 01/30/17 peripheral IV's. Problem Qualifiers (1) Acute renal failure: Qualified Codes: N17.9 - Acute kidney failure, unspecified (2) Rhabdomyolysis: Qualified Codes: M62.82 - Rhabdomyolysis Russell Keenan MD Feb 03, 2017 10:10
[2017-02-03] MEDS ORDERED: WALKER/ADULT/FO1 MIS (10:13)
--- NOTE | 2017-02-03 12:26 | HHI.NPPN ---
Subjective History of Present Illness 71-year-old female with past medical history of hyperlipidemia, diabetes mellitus, hypertension, recent urinary tract infection, possible chronic kidney disease who came to the hospital with complaint of generalized weakness, pain in the legs and shortness of breath on exertion. I was called to see the patient because of very high BUN and creatinine. The patient was told before that she has renal disease. Additional Remarks Patient is alert, no SOB, eating well. Review of Systems General Constitutional: Fatigue Objective Data Data Vital Signs Date Time Temp Pulse Resp B/P (MAP) Pulse Ox O2 Delivery O2 Flow Rate FiO2 02/03/17 08:00 98.2 78 19 136/71 (92) 97 02/03/17 08:00 97 21 02/03/17 04:00 97.8 76 20 138/70 (92) 95 02/03/17 00:00 97.0 77 18 133/75 (94) 93 02/02/17 20:06 93 21 02/02/17 20:00 83 02/02/17 20:00 96.7 78 18 147/74 (98) 96 02/02/17 16:00 97.7 81 20 143/67 (92) 96 -: 02/03/17 0533 02/03/17 0533 Physical Exam General Appearance: No Acute Distress, Comfortable Eyes Eye Exam: Pupils Equal Throat Throat Exam: Oral Mucosa [place] & Moist Neck Neck Exam: Neck Supple Pulmonary Resp Exam: Breath Sounds Equal, No Distress, Rhonchi, Decreased Bases Cardiology CV Exam: Regular Gastrointestinal/Abdomen GI Exam: Soft, Non-Tender, Bowel Sounds Present Extremeties Extremities Exam: Trace Edema Neurologic Neuro Exam: Alert, Awake, Oriented Psychiatric Psych Exam: Appropriate Responses Assessment/Plan Assessment Summary: CALLY/Acute Renal Failure Electrolyte Assessment: Hypokalemia Problem List: (1) Hypokalemia ICD Codes: E87.6 - Hypokalemia (2) Rhabdomyolysis ICD Codes: M62.82 - Rhabdomyolysis Status: Acute (3) Metabolic acidosis ICD Codes: E87.2 - Acidosis Status: Acute (4) Acute renal failure ICD Codes: N17.9 - Acute kidney failure, unspecified Status: Acute Plan Patient has low urine out put. Creatinine is also increased. Urine out put is low again. Started on HD after the Vascath. CPK is improving and AST/ALT also decreasing. Follow the urine out put and BMP. Still not much improvement in renal function or urine out put. HD done yesterday. Urine out put is better, Creatinine still elevated. HD again in AM. Problem Qualifiers (1) Rhabdomyolysis: Qualified Codes: M62.82 - Rhabdomyolysis (2) Acute renal failure: Qualified Codes: N17.9 - Acute kidney failure, unspecified Matias Lang MD Feb 03, 2017 12:26
[2017-02-03 13:51] LABS: MYELOPEROXIDASE LESS THAN 1.0 AI (<1.0); PROTEINASE-3 LESS THAN 1.0 AI (<1.0)
[2017-02-04] VITALS: BP 128/68; PULSE 77; RESP 20; TEMP 98.8; O2SAT 96
[2017-02-04 04:00] VITALS: BP 142/72; PULSE 78; RESP 20; TEMP 97.5; O2SAT 97
[2017-02-04] MEDS: CHLORHEXIDINE GLUCONATE 2 % 1 PACK (2 CLOTHS) TOP SCH (04:00)
[2017-02-04] MEDS: LEVOTHYROXINE SODIUM 100 MCG TAB PO SCH (05:05)
[2017-02-04 05:50] LABS: AUTOMATED NEUTROPHIL # 5.1 TH/MM3 (1.8-7.7); BASOPHIL % 0.7 % (0.0-2.0); EOSINOPHIL # 0.3 TH/MM3 (0-0.4); EOSINOPHIL % 4.8 % (0.0-4.0); HEMATOCRIT 22.8 % (35.0-46.0); HEMO FLAGS DIFF FINAL; LYMPH % 12.7 % (9.0-44.0); LYMPHOCYTE # 0.9 TH/MM3 (1.0-4.8); MEAN CORPUSCULAR HEMOGLOBIN 29.8 PG (27.0-34.0); MEAN CORPUSCULAR HGB CONC 33.8 % (32.0-36.0); MONO % 11.5 % (0.0-8.0); NEUT % 70.3 % (16.0-70.0); PLATELET COUNT 161 TH/MM3 (150-450); RED BLOOD COUNT 2.59 MIL/MM3 (4.00-5.30); RED CELL DISTRIBUTION WIDTH 11.9 % (11.6-17.2); WHITE BLOOD COUNT 7.1 TH/MM3 (4.0-11.0)
[2017-02-04 06:00] LABS: CHLORIDE 98 MEQ/L (98-107); POTASSIUM 4.1 MEQ/L (3.5-5.1); SODIUM (NA) 137 MEQ/L (136-145)
[2017-02-04 06:06] LABS: ANION GAP 11 MEQ/L (5-15); BICARBONATE 27.7 MEQ/L (21.0-32.0); BLOOD UREA NITROGEN 82 MG/DL (7-18)
[2017-02-04 06:08] LABS: ALT (GPT) 152 U/L (10-53); AST (GOT) 86 U/L (15-37)
[2017-02-04 06:09] LABS: GLOMERULAR FILTRATION RATE 5 ML/MIN (>89)
[2017-02-04 06:16] LABS: ALKALINE PHOSPHATASE 45 U/L (45-117); TOTAL BILIRUBIN ADULT 0.3 MG/DL (0.2-1.0)
[2017-02-04] MEDS: INSULIN ASPART SUPPLEMENTAL SCALE SQ SCH ×4 (06:22→21:21)
[2017-02-04 06:27] LABS: CREATINE KINASE 1161 U/L (26-192)
[2017-02-04 07:54] LABS: CKMB 5.8 NG/ML (0.5-3.6)
[2017-02-04 08:00] VITALS: BP 149/72; PULSE 75; RESP 16; TEMP 98.1; O2SAT 95
[2017-02-04] MEDS: SODIUM CHLORIDE 0.9% FLUSH 10 ML FLUSH IV FLUSH SCH ×2 (09:50→21:22)
[2017-02-04] MEDS: DOCUSATE SODIUM 50 MG/SENNA 8.6 MG TAB PO SCH ×2 (09:50→21:22)
[2017-02-04] MEDS: PANTOPRAZOLE SOD 40 MG DELAYED RELEASE TAB PO SCH (09:52)
[2017-02-04] MEDS: HEPARIN SODIUM - SQ 10,000 UNITS/ML VIAL SQ SCH (09:52)
--- NOTE | 2017-02-04 10:32 | HHI.PR ---
Subjective Remarks LFTs are improved. Total CK is improved. Phosphorus has increased. Creatinine is transition from 6.4-8.2. Upper trend in creatinine is at nearly an identical rate as last 48 hours. Objective Vital Signs Date Time Temp Pulse Resp B/P (MAP) Pulse Ox O2 Delivery O2 Flow Rate FiO2 02/04/17 08:00 98.1 75 16 149/72 (97) 95 02/04/17 04:00 97.5 78 20 142/72 (95) 97 02/04/17 00:00 98.8 77 20 128/68 (88) 96 02/03/17 21:21 80 02/03/17 20:40 96 21 02/03/17 20:00 98.7 79 20 142/68 (92) 97 02/03/17 16:00 98.2 77 18 132/77 (95) 98 02/03/17 12:00 96.6 72 17 148/69 (95) 98 I/O 02/03/17 02/03/17 02/03/17 02/04/17 02/04/17 02/04/17 07:00 15:00 23:00 07:00 15:00 23:00 Intake Total 60 ml 120 ml Output Total 375 ml 150 ml Balance -315 ml -30 ml Intake Oral 60 ml 120 ml Output Urine Total 375 ml 150 ml # Voids 2 # Bowel Movements 0 1 Result Diagram: 02/04/17 0532 02/04/17 0532 Objective Remarks GENERAL: NAD, A&Ox3 HEAD: Normocephalic. NECK: Supple, trachea midline. No lymphadenopathy. EYES: No scleral icterus. No injection or drainage. CARDIOVASCULAR: Regular rate and rhythm without murmurs, gallops, or rubs. RESPIRATORY: Breath sounds equal bilaterally. No accessory muscle use. GASTROINTESTINAL: Abdomen soft, non-tender, nondistended. MUSCULOSKELETAL: No cyanosis, or edema. SKIN: Warm and dry. NEURO: No focal neurological deficitis. A/P Problem List: (1) Hyperkalemia ICD Code: E87.5 - Hyperkalemia Status: Acute (2) Acute renal failure ICD Code: N17.9 - Acute kidney failure, unspecified Status: Acute (3) Rhabdomyolysis ICD Code: M62.82 - Rhabdomyolysis Status: Acute (4) Metabolic acidosis ICD Code: E87.2 - Acidosis Status: Acute (5) Transaminitis ICD Code: R74.0 - Nonspecific elevation of levels of transaminase and lactic acid dehydrogenase [LDH] Status: Acute (6) Hypertension ICD Code: I10 - Essential (primary) hypertension (7) Leucocytosis ICD Code: D72.829 - Elevated white blood cell count, unspecified (8) Hypokalemia ICD Code: E87.6 - Hypokalemia (9) Diabetes ICD Code: E11.9 - Type 2 diabetes mellitus without complications (10) Hyperlipidemia ICD Code: E78.5 - Hyperlipidemia, unspecified (11) Hypothyroidism ICD Code: E03.9 - Hypothyroidism, unspecified Assessment and Plan Assessment and plan 71-year-old female admitted with acute renal failure and rhabdomyolysis. Now in acute renal failure, possibly chronic renal failure. Continue to Follow renal function. No improvement seen in renal function at this point. Continue to monitor renal function. Labs ordered. Continue to monitor phosphorus level. Monitor total creatinine kinase total this is normalized. Follow LFTs. Acute renal failure Rhabdomyolysis Not yet showing signs of improvement Possible ATN Continue dialysis as needed Follow BMP and electrolytes Nephrology following Monitor creatinine kinase No evidence of structural abnormalities on imaging Transaminitis Follow LFTs Currently she is in a downward trend Hypertension No change blood pressure treatments Follow clinically Monitor blood pressures Hyperlipidemia Statins on hold for now due to rhabdomyolysis She's been on statins chronically before these acute issues Hypothyroidism Continue supplements Monitor as an outpatient Metabolic acidosis Resolved Hypokalemia Monitor and replace as needed Diabetes Insulin sliding scale Diabetic diet Follow blood sugars DVT prophylaxis SCDs Heparin Lines Right IJ vascath 01/30/17 peripheral IV's. Problem Qualifiers (1) Acute renal failure: Qualified Codes: N17.9 - Acute kidney failure, unspecified (2) Rhabdomyolysis: Qualified Codes: M62.82 - Rhabdomyolysis Russell Keenan MD Feb 04, 2017 10:32
[2017-02-04 12:00] VITALS: BP 146/70; PULSE 78; RESP 16; TEMP 98.6; O2SAT 97
--- NOTE | 2017-02-04 14:51 | HHI.NPPN ---
Subjective History of Present Illness 71-year-old female with past medical history of hyperlipidemia, diabetes mellitus, hypertension, recent urinary tract infection, possible chronic kidney disease who came to the hospital with complaint of generalized weakness, pain in the legs and shortness of breath on exertion. I was called to see the patient because of very high BUN and creatinine. The patient was told before that she has renal disease. Additional Remarks Patient is alert, no SOB, sitting on chair, not in distress. Review of Systems General Constitutional: Fatigue Objective Data Data Vital Signs Date Time Temp Pulse Resp B/P (MAP) Pulse Ox O2 Delivery O2 Flow Rate FiO2 02/04/17 12:00 98.6 78 16 146/70 (95) 97 02/04/17 08:00 98.1 75 16 149/72 (97) 95 02/04/17 04:00 97.5 78 20 142/72 (95) 97 02/04/17 00:00 98.8 77 20 128/68 (88) 96 02/03/17 21:21 80 02/03/17 20:40 96 21 02/03/17 20:00 98.7 79 20 142/68 (92) 97 02/03/17 16:00 98.2 77 18 132/77 (95) 98 -: 02/04/17 0532 02/04/17 0532 Physical Exam General Appearance: No Acute Distress, Comfortable Eyes Eye Exam: Pupils Equal Throat Throat Exam: Oral Mucosa [place] & Moist Neck Neck Exam: Neck Supple Pulmonary Resp Exam: Breath Sounds Equal, No Distress, Rhonchi, Decreased Bases Cardiology CV Exam: Regular Gastrointestinal/Abdomen GI Exam: Soft, Non-Tender, Bowel Sounds Present Extremeties Extremities Exam: Trace Edema Neurologic Neuro Exam: Alert, Awake, Oriented Psychiatric Psych Exam: Appropriate Responses Assessment/Plan Assessment Summary: CALLY/Acute Renal Failure Electrolyte Assessment: Hypokalemia Problem List: (1) Hypokalemia ICD Codes: E87.6 - Hypokalemia (2) Rhabdomyolysis ICD Codes: M62.82 - Rhabdomyolysis Status: Acute (3) Metabolic acidosis ICD Codes: E87.2 - Acidosis Status: Acute (4) Acute renal failure ICD Codes: N17.9 - Acute kidney failure, unspecified Status: Acute Plan Patient has low urine out put. Creatinine is also increased. Urine out put is low again. Started on HD after the Vascath. CPK is improving and AST/ALT also decreasing. Follow the urine out put and BMP. Still not much improvement in renal function or urine out put. HD done yesterday. Urine out put is better, Creatinine still elevated. HD again in AM. Problem Qualifiers (1) Rhabdomyolysis: Qualified Codes: M62.82 - Rhabdomyolysis (2) Acute renal failure: Qualified Codes: N17.9 - Acute kidney failure, unspecified Matias Lang MD Feb 04, 2017 14:51
[2017-02-04 16:00] VITALS: BP 134/62; PULSE 82; RESP 17; TEMP 98.2; O2SAT 100
[2017-02-04] MEDS: GENTAMICIN SULFATE (DIALYSIS USE ONLY) 20 MG/2 ML VIAL OTHER PRN (16:28)
[2017-02-04] MEDS: HEPARIN SODIUM - IV 10,000 UNITS/10 ML VIAL OTHER PRN (16:29)
[2017-02-04 20:00] VITALS: BP 135/68; PULSE 81; PULSE 82; RESP 16; TEMP 99; O2SAT 97
[2017-02-05] VITALS (8 sets, daily range): BP systolic 129–162; BP diastolic 64–80; PULSE 73–82; RESP 12–18; TEMP 97.6–98.5; O2SAT 94–98
[2017-02-05] MEDS: CHLORHEXIDINE GLUCONATE 2 % 1 PACK (2 CLOTHS) TOP SCH (04:00)
[2017-02-05] MEDS: LEVOTHYROXINE SODIUM 100 MCG TAB PO SCH (06:28)
[2017-02-05] MEDS: INSULIN ASPART SUPPLEMENTAL SCALE SQ SCH ×4 (07:00→21:49)
[2017-02-05 07:41] LABS: CHLORIDE 98 MEQ/L (98-107); SODIUM (NA) 137 MEQ/L (136-145)
[2017-02-05 07:46] LABS: ANION GAP 9 MEQ/L (5-15); BICARBONATE 30.1 MEQ/L (21.0-32.0)
[2017-02-05 08:01] LABS: ALKALINE PHOSPHATASE 52 U/L (45-117); ALT (GPT) 138 U/L (10-53); AST (GOT) 64 U/L (15-37); BLOOD UREA NITROGEN 47 MG/DL (7-18); CREATINE KINASE 655 U/L (26-192); GLOMERULAR FILTRATION RATE 7 ML/MIN (>89); TOTAL BILIRUBIN ADULT 0.3 MG/DL (0.2-1.0)
[2017-02-05] MEDS: DOCUSATE SODIUM 50 MG/SENNA 8.6 MG TAB PO SCH ×2 (09:00→21:00)
[2017-02-05] MEDS: PANTOPRAZOLE SOD 40 MG DELAYED RELEASE TAB PO SCH (09:14)
[2017-02-05] MEDS: SODIUM CHLORIDE 0.9% FLUSH 10 ML FLUSH IV FLUSH SCH ×2 (09:16→21:49)
[2017-02-05 10:26] LABS: CKMB 4.4 NG/ML (0.5-3.6)
--- NOTE | 2017-02-05 11:30 | HHI.PR ---
Subjective Remarks Phosphorus is 5.8 today. Total CK has declined to 655. LFTs are also improved. Her creatinine is 6.2. Continued need for dialysis. Objective Vital Signs Date Time Temp Pulse Resp B/P (MAP) Pulse Ox O2 Delivery O2 Flow Rate FiO2 02/05/17 08:35 73 02/05/17 08:00 97.6 82 18 140/64 (89) 98 02/05/17 04:00 98.0 78 16 129/71 (90) 94 02/05/17 00:00 98.5 81 16 133/65 (87) 97 02/04/17 20:00 99.0 81 16 135/68 (90) 97 02/04/17 20:00 82 02/04/17 16:00 98.2 82 17 134/62 (86) 100 02/04/17 12:00 98.6 78 16 146/70 (95) 97 I/O 02/04/17 02/04/17 02/04/17 02/05/17 02/05/17 02/05/17 06:59 14:59 22:59 06:59 14:59 22:59 Intake Total 120 ml 1420 ml 240 ml Output Total 150 ml 2550 ml 75 ml Balance -30 ml -1130 ml 165 ml Intake Oral 120 ml 1420 ml 240 ml Output Urine Total 150 ml 550 ml 75 ml Hemodialysis 2000 ml # Bowel Movements 1 0 Result Diagram: 02/04/17 0532 02/05/17 0713 Objective Remarks GENERAL: NAD, A&Ox3 HEAD: Normocephalic. NECK: Supple, trachea midline. No lymphadenopathy. EYES: No scleral icterus. No injection or drainage. CARDIOVASCULAR: Regular rate and rhythm without murmurs, gallops, or rubs. RESPIRATORY: Breath sounds equal bilaterally. No accessory muscle use. GASTROINTESTINAL: Abdomen soft, non-tender, nondistended. MUSCULOSKELETAL: No cyanosis, or edema. SKIN: Warm and dry. NEURO: No focal neurological deficitis. A/P Problem List: (1) Hyperkalemia ICD Code: E87.5 - Hyperkalemia Status: Acute (2) Acute renal failure ICD Code: N17.9 - Acute kidney failure, unspecified Status: Acute (3) Rhabdomyolysis ICD Code: M62.82 - Rhabdomyolysis Status: Acute (4) Metabolic acidosis ICD Code: E87.2 - Acidosis Status: Acute (5) Transaminitis ICD Code: R74.0 - Nonspecific elevation of levels of transaminase and lactic acid dehydrogenase [LDH] Status: Acute (6) Hypertension ICD Code: I10 - Essential (primary) hypertension (7) Leucocytosis ICD Code: D72.829 - Elevated white blood cell count, unspecified (8) Hypokalemia ICD Code: E87.6 - Hypokalemia (9) Diabetes ICD Code: E11.9 - Type 2 diabetes mellitus without complications (10) Hyperlipidemia ICD Code: E78.5 - Hyperlipidemia, unspecified (11) Hypothyroidism ICD Code: E03.9 - Hypothyroidism, unspecified Assessment and Plan Assessment and plan 71-year-old female admitted with acute renal failure and rhabdomyolysis. Now in acute renal failure, possibly chronic renal failure. Continue to Follow renal function. No improvement seen in renal function at this point. Continue to monitor renal function. Follow phosphorus, currently kinase, and renal function studies. Acute renal failure Rhabdomyolysis Not yet showing signs of improvement Possible ATN Continue dialysis as needed Follow BMP and electrolytes Nephrology following Monitor creatinine kinase No evidence of structural abnormalities on imaging Transaminitis Follow LFTs Currently she is in a downward trend Hypertension No change blood pressure treatments Follow clinically Monitor blood pressures Hyperlipidemia Statins on hold for now due to rhabdomyolysis She's been on statins chronically before these acute issues Hypothyroidism Continue supplements Monitor as an outpatient Metabolic acidosis Resolved Hypokalemia Monitor and replace as needed Diabetes Insulin sliding scale Diabetic diet Follow blood sugars DVT prophylaxis SCDs Heparin Lines Right IJ vascath 01/30/17 peripheral IV's. Problem Qualifiers (1) Acute renal failure: Qualified Codes: N17.9 - Acute kidney failure, unspecified (2) Rhabdomyolysis: Qualified Codes: M62.82 - Rhabdomyolysis Russell Keenan MD Feb 05, 2017 11:30
[2017-02-06] VITALS (7 sets, daily range): BP systolic 137–168; BP diastolic 71–92; PULSE 70–83; RESP 14–20; TEMP 97.1–99; O2SAT 94–100
[2017-02-06] MEDS: CHLORHEXIDINE GLUCONATE 2 % 1 PACK (2 CLOTHS) TOP SCH (04:00)
[2017-02-06] MEDS: LEVOTHYROXINE SODIUM 100 MCG TAB PO SCH (05:46)
[2017-02-06] MEDS: INSULIN ASPART SUPPLEMENTAL SCALE SQ SCH ×4 (07:00→22:09)
[2017-02-06 08:04] LABS: AUTOMATED NEUTROPHIL # 5.3 TH/MM3 (1.8-7.7); BASOPHIL % 0.5 % (0.0-2.0); EOSINOPHIL # 0.3 TH/MM3 (0-0.4); EOSINOPHIL % 4.4 % (0.0-4.0); HEMATOCRIT 23.6 % (35.0-46.0); HEMO FLAGS DIFF FINAL; LYMPH % 11.9 % (9.0-44.0); LYMPHOCYTE # 0.9 TH/MM3 (1.0-4.8); MEAN CELL VOLUME 90.5 FL (80.0-100.0); MEAN CORPUSCULAR HEMOGLOBIN 29.5 PG (27.0-34.0); MEAN CORPUSCULAR HGB CONC 32.6 % (32.0-36.0); MONO % 10.8 % (0.0-8.0); NEUT % 72.4 % (16.0-70.0); PLATELET COUNT 186 TH/MM3 (150-450); RED BLOOD COUNT 2.61 MIL/MM3 (4.00-5.30); WHITE BLOOD COUNT 7.3 TH/MM3 (4.0-11.0)
[2017-02-06 08:13] LABS: CHLORIDE 98 MEQ/L (98-107); POTASSIUM 4.1 MEQ/L (3.5-5.1); SODIUM (NA) 137 MEQ/L (136-145)
[2017-02-06 08:19] LABS: ANION GAP 11 MEQ/L (5-15); BICARBONATE 28.1 MEQ/L (21.0-32.0)
[2017-02-06 08:42] LABS: ALKALINE PHOSPHATASE 50 U/L (45-117); ALT (GPT) 118 U/L (10-53); AST (GOT) 51 U/L (15-37); BLOOD UREA NITROGEN 58 MG/DL (7-18); CREATINE KINASE 361 U/L (26-192); GLOMERULAR FILTRATION RATE 5 ML/MIN (>89); TOTAL BILIRUBIN ADULT 0.3 MG/DL (0.2-1.0)
[2017-02-06] MEDS: DOCUSATE SODIUM 50 MG/SENNA 8.6 MG TAB PO SCH ×2 (08:54→21:00)
[2017-02-06] MEDS: PANTOPRAZOLE SOD 40 MG DELAYED RELEASE TAB PO SCH (08:54)
[2017-02-06] MEDS: SODIUM CHLORIDE 0.9% FLUSH 10 ML FLUSH IV FLUSH SCH ×2 (08:55→21:00)
[2017-02-06 10:32] LABS: CKMB 3.8 NG/ML (0.5-3.6)
--- NOTE | 2017-02-06 11:51 | HHI.PR ---
Subjective Remarks Increase urine output and creatinine level is at 7.70. Rate at which creatinine has increased has decreased compared to previously. This may be a sign of early renal healing and renal function will have to be monitored more through time. LFTs are improved. Total creatine kinase is improved. Phosphorus is 7.4 today. Anemia discussed with the patient. Currently her anemia has stabilized after stopping blood thinners. She says is not patient she takes iron twice a day due to chronic anemia. Objective Vital Signs Date Time Temp Pulse Resp B/P (MAP) Pulse Ox O2 Delivery O2 Flow Rate FiO2 02/06/17 09:09 97.8 72 16 147/71 (96) 96 02/06/17 05:38 97.7 76 14 151/78 (102) 96 02/06/17 01:41 98.5 83 16 143/73 (96) 99 02/05/17 20:27 98.2 82 12 162/67 (98) 94 02/05/17 20:00 74 02/05/17 18:00 97.7 80 18 138/80 (99) 96 02/05/17 12:00 97.6 79 18 141/80 (100) 96 I/O 02/05/17 02/05/17 02/05/17 02/06/17 02/06/17 02/06/17 06:59 14:59 22:59 06:59 14:59 22:59 Intake Total 240 ml 300 ml Output Total 75 ml 150 ml 200 ml Balance 165 ml 150 ml -200 ml Intake Oral 240 ml 300 ml Output Urine Total 75 ml 150 ml 200 ml # Voids 2 # Bowel Movements 0 Result Diagram: 02/06/17 0745 02/06/17 0745 Objective Remarks GENERAL: NAD, A&Ox3 HEAD: Normocephalic. NECK: Supple, trachea midline. No lymphadenopathy. EYES: No scleral icterus. No injection or drainage. CARDIOVASCULAR: Regular rate and rhythm without murmurs, gallops, or rubs. RESPIRATORY: Breath sounds equal bilaterally. No accessory muscle use. GASTROINTESTINAL: Abdomen soft, non-tender, nondistended. MUSCULOSKELETAL: No cyanosis, or edema. SKIN: Warm and dry. NEURO: No focal neurological deficitis. A/P Problem List: (1) Hyperkalemia ICD Code: E87.5 - Hyperkalemia Status: Acute (2) Acute renal failure ICD Code: N17.9 - Acute kidney failure, unspecified Status: Acute (3) Rhabdomyolysis ICD Code: M62.82 - Rhabdomyolysis Status: Acute (4) Metabolic acidosis ICD Code: E87.2 - Acidosis Status: Acute (5) Transaminitis ICD Code: R74.0 - Nonspecific elevation of levels of transaminase and lactic acid dehydrogenase [LDH] Status: Acute (6) Hypertension ICD Code: I10 - Essential (primary) hypertension (7) Leucocytosis ICD Code: D72.829 - Elevated white blood cell count, unspecified (8) Hypokalemia ICD Code: E87.6 - Hypokalemia (9) Diabetes ICD Code: E11.9 - Type 2 diabetes mellitus without complications (10) Hyperlipidemia ICD Code: E78.5 - Hyperlipidemia, unspecified (11) Hypothyroidism ICD Code: E03.9 - Hypothyroidism, unspecified Assessment and Plan Assessment and plan 71-year-old female admitted with acute renal failure and rhabdomyolysis. Now in acute renal failure, possibly chronic renal failure. Continue to Follow renal function. Possible improvement in renal function. Continue to monitor creatinine and urine output. Resume iron supplementation. Acute renal failure Rhabdomyolysis Not yet showing signs of improvement Possible ATN Continue dialysis as needed Follow BMP and electrolytes Nephrology following Monitor creatinine kinase No evidence of structural abnormalities on imaging Transaminitis Follow LFTs Currently she is in a downward trend Hypertension No change blood pressure treatments Follow clinically Monitor blood pressures Hyperlipidemia Statins on hold for now due to rhabdomyolysis She's been on statins chronically before these acute issues Hypothyroidism Continue supplements Monitor as an outpatient Metabolic acidosis Resolved Acute anemia on Chronic anemia Resume ferrous sulfate 325 mg by mouth twice a day Follow hemoglobin Hypokalemia Monitor and replace as needed Diabetes Insulin sliding scale Diabetic diet Follow blood sugars DVT prophylaxis SCDs Heparin Lines Right IJ vascath 01/30/17 Problem Qualifiers (1) Acute renal failure: Qualified Codes: N17.9 - Acute kidney failure, unspecified (2) Rhabdomyolysis: Qualified Codes: M62.82 - Rhabdomyolysis Russell Keenan MD Feb 06, 2017 11:51
[2017-02-06] MEDS: FERROUS SULFATE 325 MG (65 MG ELEMENTAL IRON) TAB PO SCH (22:10)
[2017-02-07] VITALS (9 sets, daily range): BP systolic 143–157; BP diastolic 64–77; PULSE 70–86; RESP 13–24; TEMP 98.3; O2SAT 96
[2017-02-07] MEDS: CHLORHEXIDINE GLUCONATE 2 % 1 PACK (2 CLOTHS) TOP SCH ×2 (04:00→19:56)
[2017-02-07] MEDS: LEVOTHYROXINE SODIUM 100 MCG TAB PO SCH (05:16)
[2017-02-07 06:05] LABS: AUTOMATED NEUTROPHIL # 5.5 TH/MM3 (1.8-7.7); BASOPHIL # 0.1 TH/MM3 (0-0.2); BASOPHIL % 0.8 % (0.0-2.0); CHLORIDE 96 MEQ/L (98-107); EOSINOPHIL # 0.3 TH/MM3 (0-0.4); EOSINOPHIL % 3.9 % (0.0-4.0); HEMATOCRIT 22.9 % (35.0-46.0); HEMO FLAGS DIFF FINAL; LYMPH % 11.7 % (9.0-44.0); LYMPHOCYTE # 0.9 TH/MM3 (1.0-4.8); MEAN CELL VOLUME 88.4 FL (80.0-100.0); MEAN CORPUSCULAR HEMOGLOBIN 29.6 PG (27.0-34.0); MEAN CORPUSCULAR HGB CONC 33.5 % (32.0-36.0); MONO % 11.8 % (0.0-8.0); NEUT % 71.8 % (16.0-70.0); PLATELET COUNT 215 TH/MM3 (150-450); POTASSIUM 4.2 MEQ/L (3.5-5.1); RED BLOOD COUNT 2.59 MIL/MM3 (4.00-5.30); RED CELL DISTRIBUTION WIDTH 12.2 % (11.6-17.2); SODIUM (NA) 134 MEQ/L (136-145); WHITE BLOOD COUNT 7.7 TH/MM3 (4.0-11.0)
[2017-02-07 06:12] LABS: ANION GAP 13 MEQ/L (5-15); BICARBONATE 24.9 MEQ/L (21.0-32.0); BLOOD UREA NITROGEN 65 MG/DL (7-18)
[2017-02-07 06:14] LABS: ALT (GPT) 112 U/L (10-53); AST (GOT) 48 U/L (15-37); GLOMERULAR FILTRATION RATE 5 ML/MIN (>89)
[2017-02-07 06:16] LABS: TOTAL BILIRUBIN ADULT 0.3 MG/DL (0.2-1.0)
[2017-02-07 06:17] LABS: ALKALINE PHOSPHATASE 52 U/L (45-117); CREATINE KINASE 315 U/L (26-192)
[2017-02-07] MEDS: INSULIN ASPART SUPPLEMENTAL SCALE SQ SCH ×4 (07:00→21:10)
[2017-02-07] MEDS: SODIUM CHLORIDE 0.9% FLUSH 10 ML FLUSH IV FLUSH SCH ×2 (10:07→21:00)
[2017-02-07] MEDS: DOCUSATE SODIUM 50 MG/SENNA 8.6 MG TAB PO SCH ×2 (10:08→21:05)
[2017-02-07] MEDS: PANTOPRAZOLE SOD 40 MG DELAYED RELEASE TAB PO SCH (10:08)
[2017-02-07] MEDS: FERROUS SULFATE 325 MG (65 MG ELEMENTAL IRON) TAB PO SCH ×2 (10:08→21:05)
--- NOTE | 2017-02-07 10:20 | HHI.PR ---
Subjective Remarks Patient seen while undergoing dialysis. She has no complaints. No dyspnea, pain. Appetite good, last bowel movement yesterday and was formed. Objective Vitals Vital Signs Date Time Temp Pulse Resp B/P (MAP) Pulse Ox O2 Delivery O2 Flow Rate FiO2 02/07/17 04:16 98.3 70 13 143/64 (90) 02/07/17 00:00 72 02/07/17 00:00 72 16 02/06/17 23:05 98.4 72 156/81 (106) 95 02/06/17 20:00 99.0 77 20 168/71 (103) 98 02/06/17 17:19 98.1 74 16 138/92 (107) 94 02/06/17 12:15 97.1 70 18 137/72 (93) 100 I/O 02/06/17 02/06/17 02/06/17 02/07/17 02/07/17 02/07/17 07:00 15:00 23:00 07:00 15:00 23:00 Intake Total 0 ml Output Total 200 ml 550 ml 150 ml Balance -200 ml -550 ml -150 ml IV Total 0 ml Output Urine Total 200 ml 550 ml 150 ml Stool Total 0 ml # Voids 0 # Bowel Movements 1 0 Result Diagram: 02/07/17 0505 02/07/17 0505 Objective Remarks GENERAL: Well-nourished, well-developed pleasant female patient. SKIN: Warm and dry. HEAD: Normocephalic. EYES: No scleral icterus. No injection or drainage. NECK: Supple, trachea midline. No JVD or lymphadenopathy. CARDIOVASCULAR: Regular rate and rhythm without murmurs, gallops, or rubs. RESPIRATORY: Breath sounds equal bilaterally. No accessory muscle use. GASTROINTESTINAL: Abdomen soft, non-tender, nondistended. EXTREMITIES: No cyanosis, or edema. NEUROLOGICAL: Awake, alert, and oriented x 3. Non-focal. Date of Insertion: Jan 30, 2017 Line: Central Venous Catheter Side: Right Location: Internal, Jugular A/P Problem List: (1) ATN (acute tubular necrosis) ICD Code: N17.0 - Acute kidney failure with tubular necrosis (2) Weakness generalized ICD Code: R53.1 - Weakness (3) Hypertension ICD Code: I10 - Essential (primary) hypertension (4) Hypothyroidism ICD Code: E03.9 - Hypothyroidism, unspecified (5) Hyperlipidemia ICD Code: E78.5 - Hyperlipidemia, unspecified (6) Diabetes ICD Code: E11.9 - Type 2 diabetes mellitus without complications (7) Hypokalemia ICD Code: E87.6 - Hypokalemia (8) Transaminitis ICD Code: R74.0 - Nonspecific elevation of levels of transaminase and lactic acid dehydrogenase [LDH] Status: Acute (9) Metabolic acidosis ICD Code: E87.2 - Acidosis Status: Acute (10) Rhabdomyolysis ICD Code: M62.82 - Rhabdomyolysis Status: Acute (11) Acute renal failure ICD Code: N17.9 - Acute kidney failure, unspecified Status: Acute (12) Hyperkalemia ICD Code: E87.5 - Hyperkalemia Status: Acute Assessment and Plan 71-year-old female admitted with acute renal failure and rhabdomyolysis. Now in acute renal failure, possibly chronic renal failure. Continue to Follow renal function. Possible improvement in renal function. Continue to monitor creatinine and urine output. Resume iron supplementation. Acute renal failure Rhabdomyolysis Not yet showing signs of improvement Probable ATN Continue dialysis per nephrology - started on 01/30 Follow BMP and electrolytes Nephrology following Total CK down trended from greater than 14,000-315 No evidence of structural abnormalities on imaging Transaminitis Follow LFTs Currently she is in a downward trend Hypertension No change blood pressure treatments Follow clinically Monitor blood pressures Hyperlipidemia Statins on hold for now due to rhabdomyolysis She's been on statins chronically before these acute issues Hypothyroidism Continue supplements Monitor as an outpatient Metabolic acidosis Resolved Acute anemia on Chronic anemia Resume ferrous sulfate 325 mg by mouth twice a day Follow hemoglobin - 7.7 today transfuse when necessary less than 7. Check iron profile. Hypokalemia Monitor and replace as needed Diabetes Insulin sliding scale Diabetic diet Follow blood sugars DVT prophylaxis SCDs Heparin Lines Right IJ vascath 01/30/17 Problem Qualifiers (1) Rhabdomyolysis: Qualified Codes: M62.82 - Rhabdomyolysis (2) Acute renal failure: Qualified Codes: N17.9 - Acute kidney failure, unspecified Janny Harmon MD Feb 07, 2017 10:20
--- NOTE | 2017-02-07 18:07 | HHI.NPPN ---
Subjective History of Present Illness 71-year-old female with past medical history of hyperlipidemia, diabetes mellitus, hypertension, recent urinary tract infection, possible chronic kidney disease who came to the hospital with complaint of generalized weakness, pain in the legs and shortness of breath on exertion. I was called to see the patient because of very high BUN and creatinine. The patient was told before that she has renal disease. Additional Remarks Patient is alert, seen during HD, no SOB, feeling better. Review of Systems General Constitutional: Fatigue Objective Data Data Vital Signs Date Time Temp Pulse Resp B/P (MAP) Pulse Ox O2 Delivery O2 Flow Rate FiO2 02/07/17 13:00 82 24 02/07/17 12:16 74 18 151/76 (101) 02/07/17 11:00 78 17 02/07/17 09:00 76 24 02/07/17 08:16 70 13 153/77 (102) 02/07/17 07:00 70 13 02/07/17 04:16 98.3 70 13 143/64 (90) 02/07/17 00:00 72 02/07/17 00:00 72 16 02/06/17 23:05 98.4 72 156/81 (106) 95 02/06/17 20:00 99.0 77 20 168/71 (103) 98 -: 02/07/17 0505 02/07/17 0505 Physical Exam General Appearance: No Acute Distress, Comfortable Eyes Eye Exam: Pupils Equal Throat Throat Exam: Oral Mucosa [place] & Moist Neck Neck Exam: Neck Supple Pulmonary Resp Exam: Breath Sounds Equal, No Distress, Rhonchi, Decreased Bases Cardiology CV Exam: Regular Gastrointestinal/Abdomen GI Exam: Soft, Non-Tender, Bowel Sounds Present Extremeties Extremities Exam: Trace Edema Neurologic Neuro Exam: Alert, Awake, Oriented Psychiatric Psych Exam: Appropriate Responses Assessment/Plan Assessment Summary: CALLY/Acute Renal Failure Electrolyte Assessment: Hypokalemia Problem List: (1) Hypokalemia ICD Codes: E87.6 - Hypokalemia (2) Rhabdomyolysis ICD Codes: M62.82 - Rhabdomyolysis Status: Acute (3) Metabolic acidosis ICD Codes: E87.2 - Acidosis Status: Acute (4) Acute renal failure ICD Codes: N17.9 - Acute kidney failure, unspecified Status: Acute Plan Patient has low urine out put. Creatinine is also increased. Urine out put is low again. Started on HD after the Vascath. CPK is improving and AST/ALT also decreasing. Follow the urine out put and BMP. Still not much improvement in renal function or urine out put. HD now, remove fluid as tolerated. Will try to get her previous labs to see how was renal function. Problem Qualifiers (1) Rhabdomyolysis: Qualified Codes: M62.82 - Rhabdomyolysis (2) Acute renal failure: Qualified Codes: N17.9 - Acute kidney failure, unspecified Matias Lang MD Feb 07, 2017 18:07
[2017-02-08] VITALS (8 sets, daily range): BP systolic 122–160; BP diastolic 55–74; PULSE 69–82; RESP 15–20; TEMP 97.4–99.5; O2SAT 94–100
[2017-02-08] MEDS: LEVOTHYROXINE SODIUM 100 MCG TAB PO SCH (05:36)
[2017-02-08] MEDS: INSULIN ASPART SUPPLEMENTAL SCALE SQ SCH ×5 (05:36→20:13)
[2017-02-08 07:33] LABS: BASOPHIL % 0.6 % (0.0-2.0); EOSINOPHIL # 0.3 TH/MM3 (0-0.4); EOSINOPHIL % 4.3 % (0.0-4.0); HEMATOCRIT 22.2 % (35.0-46.0); HEMO FLAGS DIFF FINAL; LYMPH % 15.1 % (9.0-44.0); LYMPHOCYTE # 0.9 TH/MM3 (1.0-4.8); MEAN CELL VOLUME 90.5 FL (80.0-100.0); MEAN CORPUSCULAR HEMOGLOBIN 30.1 PG (27.0-34.0); MEAN CORPUSCULAR HGB CONC 33.3 % (32.0-36.0); MONO % 13.1 % (0.0-8.0); NEUT % 66.9 % (16.0-70.0); PLATELET COUNT 197 TH/MM3 (150-450); RED BLOOD COUNT 2.46 MIL/MM3 (4.00-5.30); RED CELL DISTRIBUTION WIDTH 12.7 % (11.6-17.2)
[2017-02-08 07:53] LABS: BICARBONATE 27.9 MEQ/L (21.0-32.0); POTASSIUM 3.4 MEQ/L (3.5-5.1)
[2017-02-08] MEDS ORDERED: POTASSIUM CHLORIDE 20 MEQ CONTROLLED RELEASE TAB PO ONE (09:30)
[2017-02-08] MEDS: PANTOPRAZOLE SOD 40 MG DELAYED RELEASE TAB PO SCH (09:46)
[2017-02-08] MEDS: DOCUSATE SODIUM 50 MG/SENNA 8.6 MG TAB PO SCH ×2 (09:46→20:11)
[2017-02-08] MEDS: FERROUS SULFATE 325 MG (65 MG ELEMENTAL IRON) TAB PO SCH ×2 (09:46→20:11)
[2017-02-08] MEDS: SODIUM CHLORIDE 0.9% FLUSH 10 ML FLUSH IV FLUSH SCH ×2 (09:47→20:12)
--- NOTE | 2017-02-08 12:23 | HHI.PR ---
Subjective Remarks Patient has no pain or complaints. Objective Vitals Vital Signs Date Time Temp Pulse Resp B/P (MAP) Pulse Ox O2 Delivery O2 Flow Rate FiO2 02/08/17 12:00 98.2 76 20 154/71 (98) 97 02/08/17 08:00 98.3 69 20 137/69 (91) 95 02/08/17 04:00 98.7 76 20 122/55 (77) 94 02/08/17 00:00 99.5 81 20 138/69 (92) 96 02/07/17 20:00 84 02/07/17 20:00 98.3 86 20 157/75 (102) 96 02/07/17 13:00 82 24 I/O 02/07/17 02/07/17 02/07/17 02/08/17 02/08/17 02/08/17 07:00 15:00 23:00 07:00 15:00 23:00 Intake Total 0 ml 120 ml 60 ml Output Total 150 ml 2325 ml 100 ml Balance -150 ml -2205 ml -40 ml Intake Oral 120 ml 60 ml IV Total 0 ml Output Urine Total 150 ml 325 ml 100 ml Hemodialysis 2000 ml # Bowel Movements 0 0 0 Result Diagram: 02/08/1762102/08/17621 Objective Remarks GENERAL: Well-nourished, well-developed pleasant female patient. SKIN: Warm and dry. HEAD: Normocephalic. EYES: No scleral icterus. No injection or drainage. NECK: Supple, trachea midline. No JVD or lymphadenopathy. CARDIOVASCULAR: Regular rate and rhythm without murmurs, gallops, or rubs. RESPIRATORY: Breath sounds equal bilaterally. No accessory muscle use. GASTROINTESTINAL: Abdomen soft, non-tender, nondistended. EXTREMITIES: No cyanosis, or edema. NEUROLOGICAL: Awake, alert, and oriented x 3. Non-focal. Date of Insertion: Jan 30, 2017 Line: Central Venous Catheter Side: Right Location: Internal, Jugular A/P Problem List: (1) ATN (acute tubular necrosis) ICD Code: N17.0 - Acute kidney failure with tubular necrosis (2) Weakness generalized ICD Code: R53.1 - Weakness (3) Hypertension ICD Code: I10 - Essential (primary) hypertension (4) Hypothyroidism ICD Code: E03.9 - Hypothyroidism, unspecified (5) Hyperlipidemia ICD Code: E78.5 - Hyperlipidemia, unspecified (6) Diabetes ICD Code: E11.9 - Type 2 diabetes mellitus without complications (7) Hypokalemia ICD Code: E87.6 - Hypokalemia (8) Transaminitis ICD Code: R74.0 - Nonspecific elevation of levels of transaminase and lactic acid dehydrogenase [LDH] Status: Acute (9) Metabolic acidosis ICD Code: E87.2 - Acidosis Status: Acute (10) Rhabdomyolysis ICD Code: M62.82 - Rhabdomyolysis Status: Acute (11) Acute renal failure ICD Code: N17.9 - Acute kidney failure, unspecified Status: Acute (12) Hyperkalemia ICD Code: E87.5 - Hyperkalemia Status: Acute Assessment and Plan 71-year-old female admitted with acute renal failure and rhabdomyolysis. Now in acute renal failure, possibly chronic renal failure. Continue to Follow renal function. Possible improvement in renal function. Continue to monitor creatinine and urine output. Resume iron supplementation. Acute renal failure Rhabdomyolysis Still very little urine output Probable ATN Continue dialysis per nephrology - started on 01/30 Follow BMP and electrolytes Nephrology following Total CK down trended from greater than 14,000-315 No evidence of structural abnormalities on imaging Transaminitis Follow LFTs Currently she is in a downward trend Hypertension No change blood pressure treatments Follow clinically Monitor blood pressures Hyperlipidemia Statins on hold for now due to rhabdomyolysis She's been on statins chronically before these acute issues Hypothyroidism Continue supplements Monitor as an outpatient Metabolic acidosis Resolved Acute anemia on Chronic anemia Resume ferrous sulfate 325 mg by mouth twice a day Follow hemoglobin - 7.7 today transfuse when necessary less than 7. Check iron profile and ferritin. Hypokalemia Monitor and replace as needed Diabetes Insulin sliding scale Diabetic diet Follow blood sugars Hypokalemia Replete and recheck BMP in the morning DVT prophylaxis SCDs Heparin Lines Right IJ vascath 01/30/17 Problem Qualifiers (1) Rhabdomyolysis: Qualified Codes: M62.82 - Rhabdomyolysis (2) Acute renal failure: Qualified Codes: N17.9 - Acute kidney failure, unspecified Janny Harmon MD Feb 08, 2017 12:23
[2017-02-08 13:41] LABS: TRANSFERRIN IRON PROFILE 142 MG/DL (200-360)
[2017-02-08 13:43] LABS: FERRITIN 713 NG/ML (8-252)
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
[2017-02-09] VITALS (7 sets, daily range): BP systolic 148–161; BP diastolic 71–82; PULSE 67–75; RESP 16–20; TEMP 98.1–99.7; O2SAT 94–97
[2017-02-09] MEDS: CHLORHEXIDINE GLUCONATE 2 % 1 PACK (2 CLOTHS) TOP SCH (04:40)
[2017-02-09] MEDS: LEVOTHYROXINE SODIUM 100 MCG TAB PO SCH (05:40)
[2017-02-09 07:00] LABS: AUTOMATED NEUTROPHIL # 4.2 TH/MM3 (1.8-7.7); BASOPHIL # 0.1 TH/MM3 (0-0.2); BASOPHIL % 0.8 % (0.0-2.0); EOSINOPHIL # 0.2 TH/MM3 (0-0.4); EOSINOPHIL % 3.9 % (0.0-4.0); HEMO FLAGS DIFF FINAL; LYMPH % 15.5 % (9.0-44.0); MEAN CELL VOLUME 88.8 FL (80.0-100.0); MEAN CORPUSCULAR HEMOGLOBIN 30.8 PG (27.0-34.0); MEAN CORPUSCULAR HGB CONC 34.7 % (32.0-36.0); MONO % 13.1 % (0.0-8.0); NEUT % 66.7 % (16.0-70.0); PLATELET COUNT 211 TH/MM3 (150-450); RED BLOOD COUNT 2.36 MIL/MM3 (4.00-5.30); RED CELL DISTRIBUTION WIDTH 12.3 % (11.6-17.2); WHITE BLOOD COUNT 6.3 TH/MM3 (4.0-11.0)
[2017-02-09] MEDS: INSULIN ASPART SUPPLEMENTAL SCALE SQ SCH ×5 (07:00→21:09)
[2017-02-09 07:01] LABS: POTASSIUM 3.7 MEQ/L (3.5-5.1)
[2017-02-09 07:05] LABS: BICARBONATE 27.1 MEQ/L (21.0-32.0)
[2017-02-09] MEDS: SODIUM CHLORIDE 0.9% FLUSH 10 ML FLUSH IV FLUSH SCH ×2 (08:34→21:00)
[2017-02-09] MEDS: DOCUSATE SODIUM 50 MG/SENNA 8.6 MG TAB PO SCH ×2 (08:35→21:08)
[2017-02-09] MEDS: FERROUS SULFATE 325 MG (65 MG ELEMENTAL IRON) TAB PO SCH ×2 (08:36→21:08)
[2017-02-09] MEDS: PANTOPRAZOLE SOD 40 MG DELAYED RELEASE TAB PO SCH (08:36)
--- NOTE | 2017-02-09 11:52 | HHI.PR ---
Subjective Remarks Patient denies cp/sob denies nausea or vomiting bp slightly elevated afebrile Objective Vitals Vital Signs Date Time Temp Pulse Resp B/P (MAP) Pulse Ox O2 Delivery O2 Flow Rate FiO2 02/09/17 08:30 98.4 71 16 155/76 (102) 97 02/09/17 04:00 99.1 71 16 148/74 (98) 96 02/09/17 00:00 98.5 70 20 149/71 (97) 97 02/08/17 20:12 73 02/08/17 20:00 97.4 75 16 160/72 (101) 100 02/08/17 17:25 82 02/08/17 16:56 97.7 79 15 154/74 (100) 95 02/08/17 12:00 98.2 76 20 154/71 (98) 97 I/O 02/08/17 02/08/17 02/08/17 02/09/17 02/09/17 02/09/17 06:59 14:59 22:59 06:59 14:59 22:59 Intake Total 60 ml 480 ml 580 ml Output Total 100 ml 400 ml 250 ml Balance -40 ml 80 ml 330 ml Intake Oral 60 ml 480 ml 580 ml Output Urine Total 100 ml 400 ml 250 ml # Voids 3 # Bowel Movements 0 0 0 Result Diagram: 02/09/17 0545 02/09/17 0545 Imaging Last Impressions Chest X-Ray 01/30/17 0000 Signed Impressions: Service Date/Time: Monday, January 30, 2017 13:01 - CONCLUSION: Catheter in good position. Marcos Pelletier MD FACR Liver Ultrasound 01/29/17 0000 Signed Impressions: Service Date/Time: Sunday, January 29, 2017 11:23 - CONCLUSION: Prominent gallbladder without stones or intrahepatic biliary duct dilatation. Marcos Pelletier MD FACR Abdomen/Pelvis CT 01/28/17 1642 Signed Impressions: Service Date/Time: Saturday, January 28, 2017 17:21 - CONCLUSION: No acute disease. Charlie Cheng MD Objective Remarks GENERAL: Well-nourished, well-developed pleasant female patient. CARDIOVASCULAR: Regular rate and rhythm without murmurs, gallops, or rubs. RESPIRATORY: Breath sounds equal bilaterally. No accessory muscle use. GASTROINTESTINAL: Abdomen soft, non-tender, nondistended. EXTREMITIES: No cyanosis, or edema. NEUROLOGICAL: Awake, alert, and oriented x 3. Non-focal. Medications and IVs Current Medications Medications (Trade) Dose Ordered Sig/Melissa Route Start Time Stop Time Status Last Admin (NS Flush) 2 ml UNSCH PRN IV FLUSH 01/28/17 19:45 (NS Flush) 2 ml BID IV FLUSH 01/28/17 21:00 02/08/17 09:47 (Morphine Inj) 2 mg Q2H PRN IV 01/28/17 19:45 (Protonix) 40 mg DAILY PO 01/29/17 09:00 02/09/17 08:36 (Zofran Inj) 4 mg Q6H PRN IV 01/28/17 19:45 (Albuterol Neb) 2.5 mg Q2HR NEB PRN INH 01/28/17 19:45 (Heparin Inj) 5,000 units Q12H SQ 01/28/17 21:00 Future Hold 02/04/17 09:52 Miscellaneous Information 1 Q361D XX 01/28/17 19:45 (Chlorhexidine 2% Cloth) Taper DAILY@04 TOP 01/29/17 04:00 01/25/18 03:59 02/01/17 04:00 (Chlorhexidine 2% Cloth) 3 pack UNSCH PRN TOP 01/28/17 19:45 (Oneyda-Colace) 1 tab BID PO 01/28/17 21:00 02/08/17 09:46 (Milk Of Magnesia Liq) 30 ml Q12H PRN PO 01/28/17 19:45 (Senokot) 17.2 mg Q12H PRN PO 01/28/17 19:45 (Dulcolax Supp) 10 mg DAILY PRN RECTAL 01/28/17 19:45 (Lactulose Liq) 30 ml DAILY PRN PO 01/28/17 19:45 (Synthroid) 100 mcg DAILY@0600 PO 01/29/17 06:00 02/09/17 05:40 (D50w (Vial) Inj) 50 ml UNSCH PRN IV 01/28/17 20:00 (Glucagon Inj) 1 mg UNSCH PRN OTHER 01/28/17 20:00 (NS Flush) UNSCH PRN IVF 01/30/17 12:00 (Heparin Inj) UNSCH PRN IV FLUSH 01/30/17 13:00 02/02/17 08:07 (NovoLOG SUPPLEMENTAL SCALE) 1 ACHS SQ 01/30/17 21:00 02/08/17 20:13 Sodium Chloride 1,000 ml @ 0 mls/hr TITRATE PRN OTHER 01/31/17 17:45 01/31/17 17:40 (Heparin Inj) 8,000 units UNSCH PRN IV FLUSH 01/31/17 17:45 Sodium Chloride 1,000 ml @ 200 mls/hr Q5H PRN OTHER 01/31/17 17:45 Sodium Chloride 200 ml @ 0 mls/hr UNSCH PRN IV 01/31/17 17:45 (Mannitol Inj) 12.5 gm UNSCH PRN IV 01/31/17 17:45 (Albumin 25% Inj) 25 gm UNSCH PRN IV 01/31/17 17:45 (NS Flush) 5 ml UNSCH PRN IV FLUSH 01/31/17 17:45 (Heparin Inj) Dwell Heparin to f... UNSCH PRN OTHER 01/31/17 17:45 02/04/17 16:29 (Gentamicin (Dialysis) Inj) 10 mg UNSCH PRN OTHER 01/31/17 17:45 02/04/17 16:28 (Gelfoam 12 Mm/7 Mm Top) 1 foam UNSCH PRN TOPICAL 01/31/17 17:45 (Zofran Inj) 4 mg UNSCH PRN IV 01/31/17 17:45 (Tylenol) 650 mg UNSCH X1 PRN PO 01/31/17 17:45 03/02/17 17:44 (Benadryl) 25 mg UNSCH PRN PO 01/31/17 17:45 (Nitrostat Sl) 0.4 mg UNSCH PRN SL 01/31/17 17:45 (Catapres) 0.1 mg UNSCH PRN PO 01/31/17 17:45 (Ferrous Sulfate) 325 mg BID PO 02/06/17 21:00 02/09/17 08:36 Date of Insertion: Jan 30, 2017 Line: Central Venous Catheter Side: Right Location: Internal, Jugular A/P Problem List: (1) ATN (acute tubular necrosis) ICD Code: N17.0 - Acute kidney failure with tubular necrosis (2) Weakness generalized ICD Code: R53.1 - Weakness (3) Hypertension ICD Code: I10 - Essential (primary) hypertension (4) Hypothyroidism ICD Code: E03.9 - Hypothyroidism, unspecified (5) Hyperlipidemia ICD Code: E78.5 - Hyperlipidemia, unspecified (6) Diabetes ICD Code: E11.9 - Type 2 diabetes mellitus without complications (7) Hypokalemia ICD Code: E87.6 - Hypokalemia Status: Resolved (8) Transaminitis ICD Code: R74.0 - Nonspecific elevation of levels of transaminase and lactic acid dehydrogenase [LDH] Status: Acute (9) Metabolic acidosis ICD Code: E87.2 - Acidosis Status: Resolved (10) Rhabdomyolysis ICD Code: M62.82 - Rhabdomyolysis Status: Acute (11) Acute renal failure ICD Code: N17.9 - Acute kidney failure, unspecified Status: Acute (12) Hyperkalemia ICD Code: E87.5 - Hyperkalemia Status: Resolved Assessment and Plan 71-year-old female admitted with acute renal failure and rhabdomyolysis. Now in acute renal failure, possibly chronic renal failure. Continue to Follow renal function. Possible improvement in renal function. Continue to monitor creatinine and urine output. Resume iron supplementation. Acute renal failure Rhabdomyolysis Possible CLALY on CKD but with unknown baseline creatinine. Probable ATN Continue dialysis per nephrology - started on 01/30 Follow BMP and electrolytes Nephrology following Total CK down trended from greater than 14,000-315 No evidence of structural abnormalities or hydronephrosis on imaging For permacath placement possibly on . Transaminitis Follow LFTs Currently she is in a downward trend CT abdomen and pelvis did not show any acute disease. 02/09 hepatitis profile pending. Hypertension Bpo elevated with a sbp in the 150's. Will resume metoprolol 25 mg by mouth twice a day. Continue to monitor vital signs and adjust blood pressure medications accordingly. Hyperlipidemia Statins on hold for now due to rhabdomyolysis Patient has been on statins chronically before these acute issues. Continue to hold statin. Hypothyroidism Continue supplements Monitor as an outpatient TSH within normal range Metabolic acidosis Resolved Acute anemia on Chronic anemia Resume ferrous sulfate 325 mg by mouth twice a day Follow hemoglobin - 7.7 today transfuse when necessary less than 7. Check iron profile and ferritin. Hypokalemia Monitor and replace as needed Diabetes Insulin sliding scale Diabetic diet Follow blood sugars Hypokalemia Replaced - Level now normal. Continue to monitor BMP. DVT prophylaxis SCDs Problem Qualifiers (1) Diabetes: Qualified Codes: E11.21 - Type 2 diabetes mellitus with diabetic nephropathy (2) Rhabdomyolysis: Qualified Codes: M62.82 - Rhabdomyolysis (3) Acute renal failure: Qualified Codes: N17.9 - Acute kidney failure, unspecified Arnol Aviles MD Feb 09, 2017 11:52
[2017-02-09] MEDS ORDERED: GLUCAGON 1 MG/ML VIAL OTHER PRN (12:00)
[2017-02-09] MEDS ORDERED: DEXTROSE 50% IN WATER 50 ML VIAL(D50) IV PRN (12:00)
[2017-02-09] MEDS: METOPROLOL TARTRATE 25 MG TAB PO SCH ×2 (12:49→21:08)
[2017-02-09] MEDS: GENTAMICIN SULFATE (DIALYSIS USE ONLY) 20 MG/2 ML VIAL OTHER PRN (14:46)
[2017-02-09] MEDS: HEPARIN SODIUM - IV 10,000 UNITS/10 ML VIAL IV FLUSH PRN (14:46)
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
[2017-02-10] VITALS (7 sets, daily range): BP systolic 145–184; BP diastolic 70–90; PULSE 64–73; RESP 20; TEMP 96.9–99; O2SAT 95–98
[2017-02-10] MEDS: CHLORHEXIDINE GLUCONATE 2 % 1 PACK (2 CLOTHS) TOP SCH (03:04)
[2017-02-10] MEDS: LEVOTHYROXINE SODIUM 100 MCG TAB PO SCH (05:27)
[2017-02-10] MEDS ORDERED: ceFAZolin 2 GM PREMIX 50 ML IV SCH (08:30)
[2017-02-10] MEDS ORDERED: VANCOMYCIN INJ 1,000 MG in SODIUM CHLOR 0.9% 250 ML INJ 250 ML IV SCH (08:30)
[2017-02-10] MEDS: INSULIN ASPART SUPPLEMENTAL SCALE SQ SCH ×4 (08:51→20:40)
[2017-02-10] MEDS: PANTOPRAZOLE SOD 40 MG DELAYED RELEASE TAB PO SCH (08:53)
[2017-02-10] MEDS: DOCUSATE SODIUM 50 MG/SENNA 8.6 MG TAB PO SCH ×2 (08:54→20:39)
[2017-02-10] MEDS: FERROUS SULFATE 325 MG (65 MG ELEMENTAL IRON) TAB PO SCH ×2 (08:54→20:39)
[2017-02-10] MEDS: METOPROLOL TARTRATE 25 MG TAB PO SCH ×2 (08:54→20:39)
[2017-02-10] MEDS: SODIUM CHLORIDE 0.9% FLUSH 10 ML FLUSH IV FLUSH SCH ×2 (08:55→20:39)
[2017-02-10] MEDS: LOSARTAN 50 MG TAB PO SCH (11:58)
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
--- NOTE | 2017-02-10 14:46 | HHI.PR ---
Subjective Remarks Deferred entry - patient seen at 11:30 AM. The patient has no complaints Denies chest pain or short of breath BP noted to be elevated to 150 systolic The patient denies dizziness, headache Objective Vitals Vital Signs Date Time Temp Pulse Resp B/P (MAP) Pulse Ox O2 Delivery O2 Flow Rate FiO2 02/10/17 12:00 97.2 64 20 150/74 (99) 98 02/10/17 08:00 97.2 65 20 152/77 (102) 97 02/10/17 04:00 98.4 67 20 145/77 (99) 97 02/10/17 00:00 99.0 70 20 153/70 (97) 95 02/09/17 20:24 94 21 02/09/17 20:00 99.7 73 20 161/76 (104) 95 02/09/17 20:00 73 I/O 02/09/17 02/09/17 02/09/17 02/10/17 02/10/17 02/10/17 07:00 15:00 23:00 07:00 15:00 23:00 Intake Total 580 ml 960 ml 60 ml Output Total 250 ml 3700 ml 175 ml Balance 330 ml -2740 ml -115 ml Intake Oral 580 ml 960 ml 60 ml Output Urine Total 250 ml 500 ml 175 ml Hemodialysis 3200 ml # Bowel Movements 0 0 Result Diagram: 02/09/17 0545 02/09/17 0545 Imaging Last Impressions Chest X-Ray 01/30/17 0000 Signed Impressions: Service Date/Time: Monday, January 30, 2017 13:01 - CONCLUSION: Catheter in good position. Marcos Pelletier MD FACR Liver Ultrasound 01/29/17 0000 Signed Impressions: Service Date/Time: Sunday, January 29, 2017 11:23 - CONCLUSION: Prominent gallbladder without stones or intrahepatic biliary duct dilatation. Marcos Pelletier MD FACR Abdomen/Pelvis CT 01/28/17 1642 Signed Impressions: Service Date/Time: Saturday, January 28, 2017 17:21 - CONCLUSION: No acute disease. Charlie Cheng MD Objective Remarks GENERAL: Well-nourished, well-developed pleasant female patient. CARDIOVASCULAR: Regular rate and rhythm without murmurs, gallops, or rubs. RESPIRATORY: Breath sounds equal bilaterally. No accessory muscle use. GASTROINTESTINAL: Abdomen soft, non-tender, nondistended. EXTREMITIES: No cyanosis, or edema. NEUROLOGICAL: Awake, alert, and oriented x 3. Non-focal. Medications and IVs Current Medications Medications (Trade) Dose Ordered Sig/Melissa Route Start Time Stop Time Status Last Admin (NS Flush) 2 ml UNSCH PRN IV FLUSH 01/28/17 19:45 (NS Flush) 2 ml BID IV FLUSH 01/28/17 21:00 02/10/17 08:55 (Morphine Inj) 2 mg Q2H PRN IV 01/28/17 19:45 (Protonix) 40 mg DAILY PO 01/29/17 09:00 02/10/17 08:53 (Zofran Inj) 4 mg Q6H PRN IV 01/28/17 19:45 (Albuterol Neb) 2.5 mg Q2HR NEB PRN INH 01/28/17 19:45 (Heparin Inj) 5,000 units Q12H SQ 01/28/17 21:00 Future Hold 02/04/17 09:52 Miscellaneous Information 1 Q361D XX 01/28/17 19:45 (Chlorhexidine 2% Cloth) Taper DAILY@04 TOP 01/29/17 04:00 01/25/18 03:59 02/01/17 04:00 (Chlorhexidine 2% Cloth) 3 pack UNSCH PRN TOP 01/28/17 19:45 (Oneyda-Colace) 1 tab BID PO 01/28/17 21:00 02/09/17 21:08 (Milk Of Magnesia Liq) 30 ml Q12H PRN PO 01/28/17 19:45 (Senokot) 17.2 mg Q12H PRN PO 01/28/17 19:45 (Dulcolax Supp) 10 mg DAILY PRN RECTAL 01/28/17 19:45 (Lactulose Liq) 30 ml DAILY PRN PO 01/28/17 19:45 (Synthroid) 100 mcg DAILY@0600 PO 01/29/17 06:00 02/10/17 05:27 (D50w (Vial) Inj) 50 ml UNSCH PRN IV 01/28/17 20:00 (Glucagon Inj) 1 mg UNSCH PRN OTHER 01/28/17 20:00 (NS Flush) UNSCH PRN IVF 01/30/17 12:00 (Heparin Inj) UNSCH PRN IV FLUSH 01/30/17 13:00 02/09/17 14:46 Sodium Chloride 1,000 ml @ 0 mls/hr TITRATE PRN OTHER 01/31/17 17:45 01/31/17 17:40 (Heparin Inj) 8,000 units UNSCH PRN IV FLUSH 01/31/17 17:45 Sodium Chloride 1,000 ml @ 200 mls/hr Q5H PRN OTHER 01/31/17 17:45 Sodium Chloride 200 ml @ 0 mls/hr UNSCH PRN IV 01/31/17 17:45 (Mannitol Inj) 12.5 gm UNSCH PRN IV 01/31/17 17:45 (Albumin 25% Inj) 25 gm UNSCH PRN IV 01/31/17 17:45 (NS Flush) 5 ml UNSCH PRN IV FLUSH 01/31/17 17:45 (Heparin Inj) Dwell Heparin to f... UNSCH PRN OTHER 01/31/17 17:45 02/04/17 16:29 (Gentamicin (Dialysis) Inj) 10 mg UNSCH PRN OTHER 01/31/17 17:45 02/09/17 14:46 (Gelfoam 12 Mm/7 Mm Top) 1 foam UNSCH PRN TOPICAL 01/31/17 17:45 (Zofran Inj) 4 mg UNSCH PRN IV 01/31/17 17:45 (Tylenol) 650 mg UNSCH X1 PRN PO 01/31/17 17:45 03/02/17 17:44 (Benadryl) 25 mg UNSCH PRN PO 01/31/17 17:45 (Nitrostat Sl) 0.4 mg UNSCH PRN SL 01/31/17 17:45 (Catapres) 0.1 mg UNSCH PRN PO 01/31/17 17:45 (Ferrous Sulfate) 325 mg BID PO 02/06/17 21:00 02/10/17 08:54 (Lopressor) 25 mg BID PO 02/09/17 11:45 02/10/17 08:54 (NovoLOG SUPPLEMENTAL SCALE) 1 ACHS SLIDING SCALE SQ 02/09/17 12:00 02/10/17 12:22 Vancomycin HCl 1000 mg/Sodium Chloride 250 ml @ 250 mls/hr CLIENT [employer]NAGER IV 02/10/17 08:30 02/14/17 08:29 Cefazolin Sodium/ Dextrose 50 ml @ 100 mls/hr CLIENT [employer] MANAGER IV 02/10/17 08:30 02/14/17 08:29 (Cozaar) 100 mg DAILY PO 02/10/17 11:00 02/10/17 11:58 Urinary Catheter: No Vascular Central Line Catheter: Yes Date of Insertion: Jan 30, 2017 Line: Central Venous Catheter Side: Right Location: Internal, Jugular Reason for Continuation On hemodialysis. A/P Problem List: (1) ATN (acute tubular necrosis) ICD Code: N17.0 - Acute kidney failure with tubular necrosis (2) Weakness generalized ICD Code: R53.1 - Weakness (3) Hypertension ICD Code: I10 - Essential (primary) hypertension (4) Hypothyroidism ICD Code: E03.9 - Hypothyroidism, unspecified (5) Hyperlipidemia ICD Code: E78.5 - Hyperlipidemia, unspecified (6) Diabetes ICD Code: E11.9 - Type 2 diabetes mellitus without complications (7) Hypokalemia ICD Code: E87.6 - Hypokalemia Status: Resolved (8) Transaminitis ICD Code: R74.0 - Nonspecific elevation of levels of transaminase and lactic acid dehydrogenase [LDH] Status: Acute (9) Metabolic acidosis ICD Code: E87.2 - Acidosis Status: Resolved (10) Rhabdomyolysis ICD Code: M62.82 - Rhabdomyolysis Status: Acute (11) Acute renal failure ICD Code: N17.9 - Acute kidney failure, unspecified Status: Acute (12) Hyperkalemia ICD Code: E87.5 - Hyperkalemia Status: Resolved (13) Hyperphosphatemia ICD Code: E83.39 - Other disorders of phosphorus metabolism Assessment and Plan 71-year-old female admitted with acute renal failure and rhabdomyolysis. Now in acute renal failure, possibly chronic renal failure. Continue to Follow renal function. Possible improvement in renal function. Continue to monitor creatinine and urine output. Resume iron supplementation. Acute renal failure Rhabdomyolysis Possible CALLY on CKD but with unknown baseline creatinine. Probable ATN Continue dialysis per nephrology - started on 01/30 Follow BMP and electrolytes Nephrology following Total CK down trended from greater than 14,000-315 No evidence of structural abnormalities or hydronephrosis on imaging For permacath placement possibly on . Transaminitis Follow LFTs Currently she is in a downward trend CT abdomen and pelvis did not show any acute disease. 02/10 hepatitis profile negative Hypertension Bpo elevated with a sbp in the 150's. Will resume metoprolol 25 mg by mouth twice a day. Continue to monitor vital signs and adjust blood pressure medications accordingly. 02/10 BP still elevated - resume Losartan. Hyperlipidemia Statins on hold for now due to rhabdomyolysis Patient has been on statins chronically before these acute issues. Continue to hold statin. Hypothyroidism Continue supplements Monitor as an outpatient TSH within normal range Metabolic acidosis Resolved Acute anemia on Chronic anemia Resume ferrous sulfate 325 mg by mouth twice a day Follow hemoglobin - 7.7 today transfuse when necessary less than 7. Check iron profile and ferritin. Hypokalemia Monitor and replace as needed Diabetes Insulin sliding scale Diabetic diet Follow blood sugars Hypokalemia Resolved after repletion. Continue to monitor BMP Hyperphospatemia. Due to renal failure. Will start on Phoslo and continue to monitor levels. DVT prophylaxis SCDs Problem Qualifiers (1) Diabetes: Qualified Codes: E11.21 - Type 2 diabetes mellitus with diabetic nephropathy (2) Rhabdomyolysis: Qualified Codes: M62.82 - Rhabdomyolysis (3) Acute renal failure: Qualified Codes: N17.9 - Acute kidney failure, unspecified Arnol Aviles MD Feb 10, 2017 14:45
[2017-02-10] MEDS: CALCIUM ACETATE 667 MG CAP PO SCH (17:05)
[2017-02-10 17:32] LABS: BICARBONATE 29.5 MEQ/L (21.0-32.0)
[2017-02-10 17:40] LABS: POTASSIUM 4.1 MEQ/L (3.5-5.1)
[2017-02-11] VITALS (10 sets, daily range): BP systolic 117–165; BP diastolic 59–91; PULSE 56–90; RESP 14–20; TEMP 96.9–99.1; O2SAT 93–100
[2017-02-11] MEDS: CHLORHEXIDINE GLUCONATE 2 % 1 PACK (2 CLOTHS) TOP SCH (04:00)
[2017-02-11] MEDS: LEVOTHYROXINE SODIUM 100 MCG TAB PO SCH (05:39)
[2017-02-11 07:05] LABS: HEMATOCRIT 21.3 % (35.0-46.0); MEAN CELL VOLUME 90.1 FL (80.0-100.0); MEAN CORPUSCULAR HEMOGLOBIN 30.7 PG (27.0-34.0); MEAN CORPUSCULAR HGB CONC 34.1 % (32.0-36.0); PLATELET COUNT 191 TH/MM3 (150-450); RED BLOOD COUNT 2.36 MIL/MM3 (4.00-5.30); RED CELL DISTRIBUTION WIDTH 12.2 % (11.6-17.2); REVIEW FLAG FINAL; WHITE BLOOD COUNT 6.1 TH/MM3 (4.0-11.0)
[2017-02-11 07:32] LABS: BICARBONATE 27.6 MEQ/L (21.0-32.0); MAGNESIUM 1.8 MG/DL (1.5-2.5); POTASSIUM 3.2 MEQ/L (3.5-5.1)
[2017-02-11] MEDS: INSULIN ASPART SUPPLEMENTAL SCALE SQ SCH ×4 (08:16→20:20)
[2017-02-11] MEDS: DOCUSATE SODIUM 50 MG/SENNA 8.6 MG TAB PO SCH ×2 (08:18→20:16)
[2017-02-11] MEDS: PANTOPRAZOLE SOD 40 MG DELAYED RELEASE TAB PO SCH (08:18)
[2017-02-11] MEDS: FERROUS SULFATE 325 MG (65 MG ELEMENTAL IRON) TAB PO SCH ×2 (08:18→20:16)
[2017-02-11] MEDS: CALCIUM ACETATE 667 MG CAP PO SCH ×3 (08:18→17:58)
[2017-02-11] MEDS: METOPROLOL TARTRATE 25 MG TAB PO SCH ×2 (08:18→20:16)
[2017-02-11] MEDS: SODIUM CHLORIDE 0.9% FLUSH 10 ML FLUSH IV FLUSH SCH ×2 (08:19→20:17)
[2017-02-11] MEDS: LOSARTAN 50 MG TAB PO SCH (08:19)
[2017-02-11] MEDS ORDERED: POTASSIUM CHLORIDE 10 MEQ CONTROLLED RELEASE TAB PO ONE (09:15)
[2017-02-11] MEDS ORDERED: MIDAZOLAM HCL 5 MG/5 ML VIAL IV ONE (09:51)
[2017-02-11] MEDS ORDERED: HEPARIN SODIUM - IV 10,000 UNITS/10 ML VIAL IV ONE (10:19)
--- NOTE | 2017-02-11 10:22 | PD.RAD ---
Post Procedure Progress Note Pre Procedure Diagnosis: (1) Rhabdomyolysis (2) Acute renal failure Post Procedure Diagnosis: (1) Rhabdomyolysis (2) Acute renal failure Procedure Date: Feb 11, 2017 Supervising Radiologist: Russell Pelletier Estimated blood loss: 2CC Anesthesia: Local, Conscious Sedation Plan of Activity Patient to Unit: PACU Patient Condition: Fair Additional Comments: Vascath removed New right IJ PermCath placed without difficulty. New catheter is in good position OK for use. Full dictated report to follow. See PACS Report for procedural detail/treatment Russell Pelletier MD Feb 11, 2017 10:22
[2017-02-11] MEDS ORDERED: HEPARIN SODIUM - IV 2,000 UNITS/2 ML VIAL IV FLUSH PRN (10:30)
[2017-02-11] MEDS ORDERED: SODIUM CHLORIDE 0.9% FLUSH 10 ML FLUSH IVF PRN (10:30)
--- NOTE | 2017-02-11 11:10 | RADRPT ---
EXAM DATE/TIME: 02/11/2017 00:00 [facility] COMPARISON: No previous studies available for comparison. INDICATIONS : Patient with acute renal failure in need of non tunnelled dialysis catheter removal. MEDICAL HISTORY : HLD, Diabetes, HTN, UTI, Hypothyroidism SURGICAL HISTORY : Dialysis catheter placement, Tonsillectomy ENCOUNTER: Initial ACUITY: 2 weeks PAIN SCORE: 0/10 IMAGE SERIES: PROCEDURE : 1. Temporary central venous catheter removal. The prescribed catheter was removed intact and hemostasis was achieved with direct pressure. The sit e was dressed appropriately. The patient tolerated the procedure well. CONCLUSION: Uncomplicated catheter removal. Russell Pelletier MD on February 11, 2017 at 11:09 Board Certified Radiologist. This report was verified electronically.
--- NOTE | 2017-02-11 11:11 | RADRPT ---
EXAM DATE/TIME: 02/11/2017 09:07 [place] COMPARISON: TEMP CATH ADAMA CATH REM W/O FL NON-TUNNELLED, February 11, 2017, 0:00. INDICATIONS : Patient with acute renal failure in need of tunnelled dialysis catheter placement. MEDICAL HISTORY : HLD, Diabetes, HTN, UTI, Hypothyroidism SURGICAL HISTORY : Dialysis catheter placement, Tonsillectomy ENCOUNTER: Initial ACUITY: 2 weeks PAIN SCORE: 0/10 FLUORO TIME: 0.9 minutes IMAGE SERIES: 0 SEDATION TIME: 60 minutes ACCESS: Right internal jugular vein SEDATION: 1.) 2.5 mg midazolam (Versed) IV 2.) 125 mcg fentanyl (Sublimaze) IV Prophylactic antibiotics were administered with appropriate pre-procedure timing. Vancomycin within 2 hours of procedure, Ancef (or alternative) within 1 hour of procedure. DEVICE: 1. 15 Finnish dual lumen 23 cm Betancur II Plus catheter PROCEDURE : 1. Ultrasound-guided venipuncture. 2. PermaCath placement. 3. Conscious sedation with continuous EKG and oximetry monitoring. The risks, benefits and alternatives to the procedure were explained and verbal and written consent w as obtained. The site was prepped in sterile fashion. Full sterile technique was used, including ca p, mask, sterile gloves and gown and a large sterile sheet. Hand hygiene and 2% chlorhexidine and/or betadine/alcohol prep was utilized per protocol for cutaneous antisepsis. Sterile gel and sterile p robe cover were utilized for ultrasound guidance. The skin and subcutaneous tissues were infiltrated with local anesthetic solution. With ultrasound and fluoroscopic guidance a dermatotomy was created over the right internal jugular v ein. A micropuncture set was used to access the targeted vein and serial dilatation was performed to accept the prescribed length catheter. A subcutaneous tunnel was created in a retrograde fashion th e catheter was pulled through the tunnel. The catheter was flushed and assembled and locked with hep barb. Conscious sedation was performed with the prescribed dosages and duration as above in the presence of an independent trained radiology nurse to assist in the monitoring of the patient. EKG and oximetry remained stable throughout the procedure. The patient tolerated the procedure well and there were n o complications. The patient was sent to post anesthesia recovery in stable condition. CONCLUSION: Uncomplicated PermaCath placement as above. Russell Pelletier MD on February 11, 2017 at 11:09 Board Certified Radiologist. This report was verified electronically.
--- NOTE | 2017-02-11 11:27 | HHI.PR ---
Subjective Remarks no complaints denies cp/sob stable vital signs Objective Vitals Vital Signs Date Time Temp Pulse Resp B/P (MAP) Pulse Ox O2 Delivery O2 Flow Rate FiO2 02/11/17 11:10 56 18 148/68 (94) 93 02/11/17 10:38 56 18 151/61 (91) 100 02/11/17 10:23 97.6 59 18 117/59 (78) 95 02/11/17 08:00 96.9 69 20 152/91 (111) 96 02/11/17 04:00 96.9 65 18 165/78 (107) 97 02/11/17 00:00 98.5 68 20 155/71 (99) 96 02/10/17 20:00 96.9 73 20 184/90 (121) 96 02/10/17 20:00 68 02/10/17 16:00 99.0 68 20 151/75 (100) 95 02/10/17 12:00 97.2 64 20 150/74 (99) 98 I/O 02/10/17 02/10/17 02/10/17 02/11/17 02/11/17 02/11/17 07:00 15:00 23:00 07:00 15:00 23:00 Intake Total 60 ml 1200 ml 60 ml 350 ml Output Total 175 ml 600 ml 250 ml 250 ml Balance -115 ml 600 ml -190 ml 100 ml Intake Oral 60 ml 1200 ml 60 ml IV Total 350 ml Output Urine Total 175 ml 600 ml 250 ml 250 ml # Bowel Movements 0 0 Result Diagram: 02/11/17 0625 02/11/17 0625 Imaging Last Impressions Chest X-Ray 01/30/17 0000 Signed Impressions: Service Date/Time: Monday, January 30, 2017 13:01 - CONCLUSION: Catheter in good position. Marcos Pelletier MD FACR Liver Ultrasound 01/29/17 0000 Signed Impressions: Service Date/Time: Sunday, January 29, 2017 11:23 - CONCLUSION: Prominent gallbladder without stones or intrahepatic biliary duct dilatation. Marcos Pelletier MD FACR Abdomen/Pelvis CT 01/28/17 1642 Signed Impressions: Service Date/Time: Saturday, January 28, 2017 17:21 - CONCLUSION: No acute disease. Charlie Cheng MD Objective Remarks GENERAL: Well-nourished, well-developed pleasant female patient. CARDIOVASCULAR: Regular rate and rhythm without murmurs, gallops, or rubs. RESPIRATORY: Breath sounds equal bilaterally. No accessory muscle use. GASTROINTESTINAL: Abdomen soft, non-tender, nondistended. EXTREMITIES: No cyanosis, or edema. NEUROLOGICAL: Awake, alert, and oriented x 3. Non-focal. Procedures Basket removal and placement of PermCath on right IJ on 02/11/17. Medications and IVs Current Medications Medications (Trade) Dose Ordered Sig/Melissa Route Start Time Stop Time Status Last Admin (NS Flush) 2 ml UNSCH PRN IV FLUSH 01/28/17 19:45 (NS Flush) 2 ml BID IV FLUSH 01/28/17 21:00 02/10/17 20:39 (Morphine Inj) 2 mg Q2H PRN IV 01/28/17 19:45 (Protonix) 40 mg DAILY PO 01/29/17 09:00 02/11/17 08:18 (Zofran Inj) 4 mg Q6H PRN IV 01/28/17 19:45 (Albuterol Neb) 2.5 mg Q2HR NEB PRN INH 01/28/17 19:45 (Heparin Inj) 5,000 units Q12H SQ 01/28/17 21:00 Future Hold 02/04/17 09:52 Miscellaneous Information 1 Q361D XX 01/28/17 19:45 (Chlorhexidine 2% Cloth) Taper DAILY@04 TOP 01/29/17 04:00 01/25/18 03:59 02/01/17 04:00 (Chlorhexidine 2% Cloth) 3 pack UNSCH PRN TOP 01/28/17 19:45 (Oneyda-Colace) 1 tab BID PO 01/28/17 21:00 02/11/17 08:18 (Milk Of Magnesia Liq) 30 ml Q12H PRN PO 01/28/17 19:45 (Senokot) 17.2 mg Q12H PRN PO 01/28/17 19:45 (Dulcolax Supp) 10 mg DAILY PRN RECTAL 01/28/17 19:45 (Lactulose Liq) 30 ml DAILY PRN PO 01/28/17 19:45 (Synthroid) 100 mcg DAILY@0600 PO 01/29/17 06:00 02/11/17 05:39 (D50w (Vial) Inj) 50 ml UNSCH PRN IV 01/28/17 20:00 (Glucagon Inj) 1 mg UNSCH PRN OTHER 01/28/17 20:00 (NS Flush) UNSCH PRN IVF 01/30/17 12:00 (Heparin Inj) UNSCH PRN IV FLUSH 01/30/17 13:00 02/09/17 14:46 Sodium Chloride 1,000 ml @ 0 mls/hr TITRATE PRN OTHER 01/31/17 17:45 01/31/17 17:40 (Heparin Inj) 8,000 units UNSCH PRN IV FLUSH 01/31/17 17:45 Sodium Chloride 1,000 ml @ 200 mls/hr Q5H PRN OTHER 01/31/17 17:45 Sodium Chloride 200 ml @ 0 mls/hr UNSCH PRN IV 01/31/17 17:45 (Mannitol Inj) 12.5 gm UNSCH PRN IV 01/31/17 17:45 (Albumin 25% Inj) 25 gm UNSCH PRN IV 01/31/17 17:45 (NS Flush) 5 ml UNSCH PRN IV FLUSH 01/31/17 17:45 (Heparin Inj) Dwell Heparin to f... UNSCH PRN OTHER 01/31/17 17:45 02/04/17 16:29 (Gentamicin (Dialysis) Inj) 10 mg UNSCH PRN OTHER 01/31/17 17:45 02/09/17 14:46 (Gelfoam 12 Mm/7 Mm Top) 1 foam UNSCH PRN TOPICAL 01/31/17 17:45 (Zofran Inj) 4 mg UNSCH PRN IV 01/31/17 17:45 (Tylenol) 650 mg UNSCH X1 PRN PO 01/31/17 17:45 03/02/17 17:44 (Benadryl) 25 mg UNSCH PRN PO 01/31/17 17:45 (Nitrostat Sl) 0.4 mg UNSCH PRN SL 01/31/17 17:45 (Catapres) 0.1 mg UNSCH PRN PO 01/31/17 17:45 (Ferrous Sulfate) 325 mg BID PO 02/06/17 21:00 02/11/17 08:18 (Lopressor) 25 mg BID PO 02/09/17 11:45 02/11/17 08:18 (NovoLOG SUPPLEMENTAL SCALE) 1 ACHS SLIDING SCALE SQ 02/09/17 12:00 02/10/17 20:40 Vancomycin HCl 1000 mg/Sodium Chloride 250 ml @ 250 mls/hr GROUNDMAN IV 02/10/17 08:30 02/14/17 08:29 02/11/17 09:04 Cefazolin Sodium/ Dextrose 50 ml @ 100 mls/hr GROUNDMAN IV 02/10/17 08:30 02/14/17 08:29 02/11/17 09:51 (Cozaar) 100 mg DAILY PO 02/10/17 11:00 02/11/17 08:19 (Phoslo) 667 mg TID PO 02/10/17 18:00 02/11/17 08:18 Urinary Catheter: No Vascular Central Line Catheter: Yes Assessment to: Continue Date of Insertion: Feb 11, 2017 Line: Central Venous Catheter Side: Right Location: Internal, Jugular Reason for Continuation Vascath removed - R IJ PermCath placed A/P Problem List: (1) ATN (acute tubular necrosis) ICD Code: N17.0 - Acute kidney failure with tubular necrosis (2) Weakness generalized ICD Code: R53.1 - Weakness (3) Hypertension ICD Code: I10 - Essential (primary) hypertension (4) Hypothyroidism ICD Code: E03.9 - Hypothyroidism, unspecified (5) Hyperlipidemia ICD Code: E78.5 - Hyperlipidemia, unspecified (6) Diabetes ICD Code: E11.9 - Type 2 diabetes mellitus without complications (7) Hypokalemia ICD Code: E87.6 - Hypokalemia Status: Resolved (8) Transaminitis ICD Code: R74.0 - Nonspecific elevation of levels of transaminase and lactic acid dehydrogenase [LDH] Status: Acute (9) Metabolic acidosis ICD Code: E87.2 - Acidosis Status: Resolved (10) Rhabdomyolysis ICD Code: M62.82 - Rhabdomyolysis Status: Acute (11) Acute renal failure ICD Code: N17.9 - Acute kidney failure, unspecified Status: Acute (12) Hyperkalemia ICD Code: E87.5 - Hyperkalemia Status: Resolved (13) Hyperphosphatemia ICD Code: E83.39 - Other disorders of phosphorus metabolism Assessment and Plan 71-year-old female admitted with acute renal failure and rhabdomyolysis. Now in acute renal failure, possibly chronic renal failure. Continue to Follow renal function. Possible improvement in renal function. Continue to monitor creatinine and urine output. Resume iron supplementation. Acute renal failure Rhabdomyolysis Possible CALLY on CKD but with unknown baseline creatinine. Probable ATN Continue dialysis per nephrology - started on 01/30 Follow BMP and electrolytes Nephrology following Total CK down trended from greater than 14,000-315 No evidence of structural abnormalities or hydronephrosis on imaging 02/11 status post Vas-Cath removal and permacath placement. Transaminitis Follow LFTs Currently she is in a downward trend CT abdomen and pelvis did not show any acute disease. 02/10 hepatitis profile negative Hypertension Bpo elevated with a sbp in the 150's. Will resume metoprolol 25 mg by mouth twice a day. Continue to monitor vital signs and adjust blood pressure medications accordingly. 02/10 BP still elevated - resume Losartan. Hyperlipidemia Statins on hold for now due to rhabdomyolysis Patient has been on statins chronically before these acute issues. Continue to hold statin. Hypothyroidism Continue supplements Monitor as an outpatient TSH within normal range Metabolic acidosis Resolved Acute anemia on Chronic anemia Resume ferrous sulfate 325 mg by mouth twice a day Follow hemoglobin - 7.7 today transfuse when necessary less than 7. Check iron profile and ferritin. Hypokalemia 02/11 Potassium level 3.2. Will replace orally and continue to monitor BMP. Diabetes Insulin sliding scale Diabetic diet Follow blood sugars 02/11 Blood sugars stable. Continue SSI with insulin NovoLog. Hypokalemia Resolved after repletion. Continue to monitor BMP Hyperphospatemia. Due to renal failure. Will start on Phoslo and continue to monitor levels. 02/11 Phosphorus trending down - continue phoslo. 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 I will start the patient on iron dextran daily since patient has slow iron and low percentage iron. DVT prophylaxis SCDs Discharge Planning DC pending nephrology clearance and hemodialysis being set up as an outpatient. foreign exchange services manager to assist on DC planning. Problem Qualifiers (1) Diabetes: Qualified Codes: E11.21 - Type 2 diabetes mellitus with diabetic nephropathy (2) Rhabdomyolysis: Qualified Codes: M62.82 - Rhabdomyolysis (3) Acute renal failure: Qualified Codes: N17.9 - Acute kidney failure, unspecified Arnol Aviles MD Feb 11, 2017 11:27
[2017-02-11 12:06] LABS: INDIRECT BILIRUBIN 0.2 MG/DL (0.0-0.8); TOTAL BILIRUBIN ADULT 0.3 MG/DL (0.2-1.0)
[2017-02-11] MEDS ORDERED: IRON DEXTRAN 100 MG/2 ML VIAL IM ONE (13:00)
[2017-02-11] MEDS: GENTAMICIN SULFATE (DIALYSIS USE ONLY) 20 MG/2 ML VIAL OTHER PRN (13:59)
[2017-02-11] MEDS ORDERED: IRON DEXTRAN 100 MG/2 ML VIAL IV PUSH SCH (14:00)
[2017-02-11] MEDS: HEPARIN SODIUM - IV 10,000 UNITS/10 ML VIAL OTHER PRN (14:00)
--- NOTE | 2017-02-11 17:11 | HHI.NPPN ---
Subjective History of Present Illness 71-year-old female with past medical history of hyperlipidemia, diabetes mellitus, hypertension, recent urinary tract infection, possible chronic kidney disease who came to the hospital with complaint of generalized weakness, pain in the legs and shortness of breath on exertion. I was called to see the patient because of very high BUN and creatinine. The patient was told before that she has renal disease. Additional Remarks Patient is alert, no SOB, feeling better, no SOB. Review of Systems General Constitutional: Fatigue Objective Data Data 02/11/17 02/12/17 19:00 07:00 Intake Total 350 ml Output Total 2950 ml Balance -2600 ml IV Total 350 ml Output Urine Total 250 ml Hemodialysis 2700 ml Vital Signs Date Time Temp Pulse Resp B/P (MAP) Pulse Ox O2 Delivery O2 Flow Rate FiO2 02/11/17 17:03 97.0 90 20 142/74 (96) 96 02/11/17 12:00 97.1 70 20 148/70 (96) 96 02/11/17 11:36 56 18 148/60 (89) 93 02/11/17 11:10 56 18 148/68 (94) 93 02/11/17 10:38 56 18 151/61 (91) 100 02/11/17 10:23 97.6 59 18 117/59 (78) 95 02/11/17 08:00 96.9 69 20 152/91 (111) 96 02/11/17 04:00 96.9 65 18 165/78 (107) 97 02/11/17 00:00 98.5 68 20 155/71 (99) 96 02/10/17 20:00 96.9 73 20 184/90 (121) 96 02/10/17 20:00 68 -: 02/11/17 0625 02/11/17 0625 Physical Exam General Appearance: No Acute Distress, Comfortable Eyes Eye Exam: Pupils Equal Throat Throat Exam: Oral Mucosa [place] & Moist Neck Neck Exam: Neck Supple Pulmonary Resp Exam: Breath Sounds Equal, No Distress, Rhonchi, Decreased Bases Cardiology CV Exam: Regular Gastrointestinal/Abdomen GI Exam: Soft, Non-Tender, Bowel Sounds Present Extremeties Extremities Exam: Trace Edema Neurologic Neuro Exam: Alert, Awake, Oriented Psychiatric Psych Exam: Appropriate Responses Assessment/Plan Assessment Summary: CALLY/Acute Renal Failure Electrolyte Assessment: Hypokalemia Problem List: (1) Hypokalemia ICD Codes: E87.6 - Hypokalemia Status: Resolved (2) Rhabdomyolysis ICD Codes: M62.82 - Rhabdomyolysis Status: Acute (3) Metabolic acidosis ICD Codes: E87.2 - Acidosis Status: Resolved (4) Acute renal failure ICD Codes: N17.9 - Acute kidney failure, unspecified Status: Acute Plan Patient has low urine out put. Started on HD after the Vascath. CPK is improving and AST/ALT also decreasing. Follow the urine out put and BMP. Still not much improvement in renal function or urine out put. HD done 2.[address] Lang to follow on Tuesday Problem Qualifiers (1) Rhabdomyolysis: Qualified Codes: M62.82 - Rhabdomyolysis (2) Acute renal failure: Qualified Codes: N17.9 - Acute kidney failure, unspecified Oscar Richardson MD Feb 11, 2017 17:11
[2017-02-11] MEDS ORDERED: IRON DEXTRAN 100 MG/2 ML VIAL IM PRN (18:00)
[2017-02-11] MEDS: IRON DEXTRAN 100 MG/2 ML VIAL IV PUSH SCH (19:17)
[2017-02-12] MEDS: CHLORHEXIDINE GLUCONATE 2 % 1 PACK (2 CLOTHS) TOP SCH (03:15)
[2017-02-12] MEDS: LEVOTHYROXINE SODIUM 100 MCG TAB PO SCH (05:44)
[2017-02-12 07:20] LABS: POTASSIUM 3.9 MEQ/L (3.5-5.1)
[2017-02-12 07:29] LABS: BICARBONATE 29.6 MEQ/L (21.0-32.0)
[2017-02-12] MEDS: INSULIN ASPART SUPPLEMENTAL SCALE SQ SCH ×4 (08:00→20:18)
[2017-02-12] MEDS: LOSARTAN 50 MG TAB PO SCH (08:25)
[2017-02-12] MEDS: FERROUS SULFATE 325 MG (65 MG ELEMENTAL IRON) TAB PO SCH ×2 (08:25→20:16)
[2017-02-12] MEDS: METOPROLOL TARTRATE 25 MG TAB PO SCH ×2 (08:25→20:16)
[2017-02-12] MEDS: CALCIUM ACETATE 667 MG CAP PO SCH ×3 (08:25→18:00)
[2017-02-12] MEDS: PANTOPRAZOLE SOD 40 MG DELAYED RELEASE TAB PO SCH (08:25)
[2017-02-12] MEDS: DOCUSATE SODIUM 50 MG/SENNA 8.6 MG TAB PO SCH ×3 (08:25→20:17)
[2017-02-12] MEDS: SODIUM CHLORIDE 0.9% FLUSH 10 ML FLUSH IV FLUSH SCH ×2 (08:26→20:18)
[2017-02-12 08:39] VITALS: BP 156/75; PULSE 67; RESP 16; TEMP 96.8; O2SAT 95
[2017-02-12 12:00] VITALS: BP 161/66; PULSE 76; RESP 16; TEMP 97.8; O2SAT 98
--- NOTE | 2017-02-12 14:16 | HHI.PR ---
Subjective Remarks no complaints denies cp/sob Objective Vitals Vital Signs Date Time Temp Pulse Resp B/P (MAP) Pulse Ox O2 Delivery O2 Flow Rate FiO2 02/12/17 08:39 96.8 67 16 156/75 (102) 95 02/11/17 20:07 99.1 74 14 146/67 (93) 94 02/11/17 17:03 97.0 90 20 142/74 (96) 96 I/O 02/11/17 02/11/17 02/11/17 02/12/17 02/12/17 02/12/17 07:00 15:00 23:00 07:00 15:00 23:00 Intake Total 60 ml 350 ml 240 ml Output Total 250 ml 250 ml 2850 ml Balance -190 ml 100 ml -2610 ml Intake Oral 60 ml 240 ml IV Total 350 ml Output Urine Total 250 ml 250 ml 150 ml Hemodialysis 2700 ml # Voids 1 # Bowel Movements 0 Result Diagram: 02/11/17 0625 02/12/17 0608 Imaging Last Impressions Central Venous Line 02/11/17 0000 Signed Impressions: Service Date/Time: Saturday, February 11, 2017 00:00 - CONCLUSION: Uncomplicated catheter removal. Russell Pelletier MD Catheter Placement X-Ray 02/11/17 0000 Signed Impressions: Service Date/Time: Saturday, February 11, 2017 09:07 - CONCLUSION: Uncomplicated PermaCath placement as above. Russell Pelletier MD Chest X-Ray 01/30/17 0000 Signed Impressions: Service Date/Time: Monday, January 30, 2017 13:01 - CONCLUSION: Catheter in good position. Marcos Pelletier MD FACR Liver Ultrasound 01/29/17 0000 Signed Impressions: Service Date/Time: Sunday, January 29, 2017 11:23 - CONCLUSION: Prominent gallbladder without stones or intrahepatic biliary duct dilatation. Marcos Pelletier MD FACR Abdomen/Pelvis CT 01/28/17 1642 Signed Impressions: Service Date/Time: Saturday, January 28, 2017 17:21 - CONCLUSION: No acute disease. Charlie Cheng MD Objective Remarks GENERAL: Well-nourished, well-developed pleasant female patient. CARDIOVASCULAR: Regular rate and rhythm without murmurs, gallops, or rubs. RESPIRATORY: Breath sounds equal bilaterally. No accessory muscle use. GASTROINTESTINAL: Abdomen soft, non-tender, nondistended. EXTREMITIES: No cyanosis, or edema. NEUROLOGICAL: Awake, alert, and oriented x 3. Non-focal. Procedures Basket removal and placement of PermCath on right IJ on 02/11/17. Medications and IVs Current Medications Medications (Trade) Dose Ordered Sig/Melissa Route Start Time Stop Time Status Last Admin (NS Flush) 2 ml UNSCH PRN IV FLUSH 01/28/17 19:45 (NS Flush) 2 ml BID IV FLUSH 01/28/17 21:00 02/12/17 08:26 (Morphine Inj) 2 mg Q2H PRN IV 01/28/17 19:45 (Protonix) 40 mg DAILY PO 01/29/17 09:00 02/12/17 08:25 (Zofran Inj) 4 mg Q6H PRN IV 01/28/17 19:45 (Albuterol Neb) 2.5 mg Q2HR NEB PRN INH 01/28/17 19:45 (Heparin Inj) 5,000 units Q12H SQ 01/28/17 21:00 Future Hold 02/04/17 09:52 Miscellaneous Information 1 Q361D XX 01/28/17 19:45 (Chlorhexidine 2% Cloth) Taper DAILY@04 TOP 01/29/17 04:00 01/25/18 03:59 02/01/17 04:00 (Chlorhexidine 2% Cloth) 3 pack UNSCH PRN TOP 01/28/17 19:45 (Oneyda-Colace) 1 tab BID PO 01/28/17 21:00 02/11/17 20:16 (Milk Of Magnesia Liq) 30 ml Q12H PRN PO 01/28/17 19:45 (Senokot) 17.2 mg Q12H PRN PO 01/28/17 19:45 (Dulcolax Supp) 10 mg DAILY PRN RECTAL 01/28/17 19:45 (Lactulose Liq) 30 ml DAILY PRN PO 01/28/17 19:45 (Synthroid) 100 mcg DAILY@0600 PO 01/29/17 06:00 02/12/17 05:44 (D50w (Vial) Inj) 50 ml UNSCH PRN IV 01/28/17 20:00 (Glucagon Inj) 1 mg UNSCH PRN OTHER 01/28/17 20:00 (NS Flush) UNSCH PRN IVF 01/30/17 12:00 (Heparin Inj) UNSCH PRN IV FLUSH 01/30/17 13:00 02/09/17 14:46 Sodium Chloride 1,000 ml @ 0 mls/hr TITRATE PRN OTHER 01/31/17 17:45 01/31/17 17:40 (Heparin Inj) 8,000 units UNSCH PRN IV FLUSH 01/31/17 17:45 Sodium Chloride 1,000 ml @ 200 mls/hr Q5H PRN OTHER 01/31/17 17:45 Sodium Chloride 200 ml @ 0 mls/hr UNSCH PRN IV 01/31/17 17:45 (Mannitol Inj) 12.5 gm UNSCH PRN IV 01/31/17 17:45 (Albumin 25% Inj) 25 gm UNSCH PRN IV 01/31/17 17:45 (NS Flush) 5 ml UNSCH PRN IV FLUSH 01/31/17 17:45 (Heparin Inj) Dwell Heparin to f... UNSCH PRN OTHER 01/31/17 17:45 02/11/17 14:00 (Gentamicin (Dialysis) Inj) 10 mg UNSCH PRN OTHER 01/31/17 17:45 02/11/17 13:59 (Gelfoam 12 Mm/7 Mm Top) 1 foam UNSCH PRN TOPICAL 01/31/17 17:45 (Zofran Inj) 4 mg UNSCH PRN IV 01/31/17 17:45 (Tylenol) 650 mg UNSCH X1 PRN PO 01/31/17 17:45 03/02/17 17:44 (Benadryl) 25 mg UNSCH PRN PO 01/31/17 17:45 (Nitrostat Sl) 0.4 mg UNSCH PRN SL 01/31/17 17:45 (Catapres) 0.1 mg UNSCH PRN PO 01/31/17 17:45 (Ferrous Sulfate) 325 mg BID PO 02/06/17 21:00 02/12/17 08:25 (Lopressor) 25 mg BID PO 02/09/17 11:45 02/12/17 08:25 (NovoLOG SUPPLEMENTAL SCALE) 1 ACHS SLIDING SCALE SQ 02/09/17 12:00 02/12/17 12:00 Vancomycin HCl 1000 mg/Sodium Chloride 250 ml @ 250 mls/hr INCISING MACHINE OPERATOR IV 02/10/17 08:30 02/14/17 08:29 02/11/17 09:04 Cefazolin Sodium/ Dextrose 50 ml @ 100 mls/hr INCISING MACHINE OPERATOR IV 02/10/17 08:30 02/14/17 08:29 02/11/17 09:51 (Cozaar) 100 mg DAILY PO 02/10/17 11:00 02/12/17 08:25 (Phoslo) 667 mg TID PO 02/10/17 18:00 02/12/17 18:00 (Infed Inj) 100 mg DAILY@1800 IV PUSH 02/11/17 18:00 02/12/17 18:00 Urinary Catheter: Yes Assessment to: Continue Elizabeth insert reason: Measure Accurate Output Vascular Central Line Catheter: Yes Assessment to: Continue Date of Insertion: Feb 11, 2017 Line: Central Venous Catheter Side: Right Location: Internal, Jugular A/P Problem List: (1) ATN (acute tubular necrosis) ICD Code: N17.0 - Acute kidney failure with tubular necrosis (2) Weakness generalized ICD Code: R53.1 - Weakness (3) Hypertension ICD Code: I10 - Essential (primary) hypertension (4) Hypothyroidism ICD Code: E03.9 - Hypothyroidism, unspecified (5) Hyperlipidemia ICD Code: E78.5 - Hyperlipidemia, unspecified (6) Diabetes ICD Code: E11.9 - Type 2 diabetes mellitus without complications (7) Hypokalemia ICD Code: E87.6 - Hypokalemia Status: Resolved (8) Transaminitis ICD Code: R74.0 - Nonspecific elevation of levels of transaminase and lactic acid dehydrogenase [LDH] Status: Acute (9) Metabolic acidosis ICD Code: E87.2 - Acidosis Status: Resolved (10) Rhabdomyolysis ICD Code: M62.82 - Rhabdomyolysis Status: Acute (11) Acute renal failure ICD Code: N17.9 - Acute kidney failure, unspecified Status: Acute (12) Hyperkalemia ICD Code: E87.5 - Hyperkalemia Status: Resolved (13) Hyperphosphatemia ICD Code: E83.39 - Other disorders of phosphorus metabolism Assessment and Plan 71-year-old female admitted with acute renal failure and rhabdomyolysis. Now in acute renal failure, possibly chronic renal failure. Continue to Follow renal function. Possible improvement in renal function. Continue to monitor creatinine and urine output. Resume iron supplementation. Acute renal failure Rhabdomyolysis Possible CALLY on CKD but with unknown baseline creatinine. Probable ATN Continue dialysis per nephrology - started on 01/30 Follow BMP and electrolytes Nephrology following Total CK down trended from greater than 14,000-315 No evidence of structural abnormalities or hydronephrosis on imaging 02/11 status post Vas-Cath removal and permacath placement. Transaminitis Follow LFTs Currently she is in a downward trend CT abdomen and pelvis did not show any acute disease. 02/10 hepatitis profile negative Hypertension Bpo elevated with a sbp in the 150's. Will resume metoprolol 25 mg by mouth twice a day. Continue to monitor vital signs and adjust blood pressure medications accordingly. 02/10 BP still elevated - resume Losartan. Hyperlipidemia Statins on hold for now due to rhabdomyolysis Patient has been on statins chronically before these acute issues. Continue to hold statin. Hypothyroidism Continue supplements Monitor as an outpatient TSH within normal range Metabolic acidosis Resolved Acute anemia on Chronic anemia Resume ferrous sulfate 325 mg by mouth twice a day Follow hemoglobin - 7.7 today transfuse when necessary less than 7. Check iron profile and ferritin. Hypokalemia 02/11 Potassium level 3.2. Will replace orally and continue to monitor BMP. 02/12 Potassium 3.9 - continue to monitor bmp. Diabetes Insulin sliding scale Diabetic diet Follow blood sugars 02/11 Blood sugars stable. Continue SSI with insulin NovoLog. Hypokalemia Resolved after repletion. Continue to monitor BMP Hyperphospatemia. Due to renal failure. Will start on Phoslo and continue to monitor levels. 02/11 Phosphorus trending down - continue phoslo. 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 02/12 Continue Iv iron DVT prophylaxis SCDs Discharge Planning DC pending nephrology clearance and hemodialysis being set up as an outpatient. test manager to assist on DC planning. Problem Qualifiers (1) Diabetes: Qualified Codes: E11.21 - Type 2 diabetes mellitus with diabetic nephropathy (2) Rhabdomyolysis: Qualified Codes: M62.82 - Rhabdomyolysis (3) Acute renal failure: Qualified Codes: N17.9 - Acute kidney failure, unspecified Arnol Aviles MD Feb 12, 2017 14:16
[2017-02-12] MEDS: IRON DEXTRAN 100 MG/2 ML VIAL IV PUSH SCH (18:00)
[2017-02-12 18:21] VITALS: BP 155/75; PULSE 77; RESP 15; TEMP 98.5; O2SAT 97
[2017-02-12 20:59] VITALS: BP 158/69; PULSE 73; RESP 20; TEMP 98.4; O2SAT 92
[2017-02-13 00:07] VITALS: BP 152/71; PULSE 69; RESP 14; TEMP 99.2; O2SAT 91
[2017-02-13] MEDS: CHLORHEXIDINE GLUCONATE 2 % 1 PACK (2 CLOTHS) TOP SCH (04:00)
[2017-02-13] MEDS: LEVOTHYROXINE SODIUM 100 MCG TAB PO SCH (06:09)
[2017-02-13] MEDS: CALCIUM ACETATE 667 MG CAP PO SCH ×3 (08:19→17:31)
[2017-02-13] MEDS: METOPROLOL TARTRATE 25 MG TAB PO SCH (08:19)
[2017-02-13] MEDS: LOSARTAN 50 MG TAB PO SCH (08:19)
[2017-02-13] MEDS: FERROUS SULFATE 325 MG (65 MG ELEMENTAL IRON) TAB PO SCH ×2 (08:19→21:08)
[2017-02-13] MEDS: PANTOPRAZOLE SOD 40 MG DELAYED RELEASE TAB PO SCH (08:19)
[2017-02-13] MEDS: INSULIN ASPART SUPPLEMENTAL SCALE SQ SCH ×4 (08:20→21:21)
[2017-02-13] MEDS: SODIUM CHLORIDE 0.9% FLUSH 10 ML FLUSH IV FLUSH SCH ×2 (09:00→21:09)
[2017-02-13] MEDS: DOCUSATE SODIUM 50 MG/SENNA 8.6 MG TAB PO SCH ×2 (09:00→21:00)
[2017-02-13 09:44] VITALS: BP 173/105; PULSE 69; RESP 15; TEMP 98; O2SAT 99
--- NOTE | 2017-02-13 11:19 | HHI.PR ---
Subjective Remarks Denies cp/sob ambulating well stable vital signs Objective Vitals Vital Signs Date Time Temp Pulse Resp B/P (MAP) Pulse Ox O2 Delivery O2 Flow Rate FiO2 02/13/17 09:44 98.0 69 15 173/105 (127) 99 02/13/17 00:07 99.2 69 14 152/71 (98) 91 02/12/17 20:59 98.4 73 20 158/69 (98) 92 02/12/17 18:21 98.5 77 15 155/75 (101) 97 02/12/17 12:00 97.8 76 16 161/66 (97) 98 I/O 02/12/17 02/12/17 02/12/17 02/13/17 02/13/17 02/13/17 07:00 15:00 23:00 07:00 15:00 23:00 Intake Total 1500 ml Output Total 980 ml 1000 ml Balance 520 ml -1000 ml Intake Oral 1500 ml Output Urine Total 980 ml 1000 ml # Voids 1 3 # Bowel Movements 1 Result Diagram: 02/11/17 0625 02/12/17 0608 Objective Remarks GENERAL: Well-nourished, well-developed pleasant female patient. CARDIOVASCULAR: Regular rate and rhythm without murmurs, gallops, or rubs. RESPIRATORY: Breath sounds equal bilaterally. No accessory muscle use. GASTROINTESTINAL: Abdomen soft, non-tender, nondistended. EXTREMITIES: No cyanosis, or edema. NEUROLOGICAL: Awake, alert, and oriented x 3. Non-focal. Procedures Vascath removal and placement of PermCath on right IJ on 02/11/17. Medications and IVs Current Medications Medications (Trade) Dose Ordered Sig/Melissa Route Start Time Stop Time Status Last Admin (NS Flush) 2 ml UNSCH PRN IV FLUSH 01/28/17 19:45 (NS Flush) 2 ml BID IV FLUSH 01/28/17 21:00 02/13/17 09:00 (Morphine Inj) 2 mg Q2H PRN IV 01/28/17 19:45 (Protonix) 40 mg DAILY PO 01/29/17 09:00 02/13/17 08:19 (Zofran Inj) 4 mg Q6H PRN IV 01/28/17 19:45 (Albuterol Neb) 2.5 mg Q2HR NEB PRN INH 01/28/17 19:45 (Heparin Inj) 5,000 units Q12H SQ 01/28/17 21:00 Future Hold 02/04/17 09:52 Miscellaneous Information 1 Q361D XX 01/28/17 19:45 (Chlorhexidine 2% Cloth) Taper DAILY@04 TOP 01/29/17 04:00 01/25/18 03:59 02/01/17 04:00 (Chlorhexidine 2% Cloth) 3 pack UNSCH PRN TOP 01/28/17 19:45 (Oneyda-Colace) 1 tab BID PO 01/28/17 21:00 02/12/17 20:17 (Milk Of Magnesia Liq) 30 ml Q12H PRN PO 01/28/17 19:45 (Senokot) 17.2 mg Q12H PRN PO 01/28/17 19:45 (Dulcolax Supp) 10 mg DAILY PRN RECTAL 01/28/17 19:45 (Lactulose Liq) 30 ml DAILY PRN PO 01/28/17 19:45 (Synthroid) 100 mcg DAILY@0600 PO 01/29/17 06:00 02/13/17 06:09 (D50w (Vial) Inj) 50 ml UNSCH PRN IV 01/28/17 20:00 (Glucagon Inj) 1 mg UNSCH PRN OTHER 01/28/17 20:00 (NS Flush) UNSCH PRN IVF 01/30/17 12:00 (Heparin Inj) UNSCH PRN IV FLUSH 01/30/17 13:00 02/09/17 14:46 Sodium Chloride 1,000 ml @ 0 mls/hr TITRATE PRN OTHER 01/31/17 17:45 01/31/17 17:40 (Heparin Inj) 8,000 units UNSCH PRN IV FLUSH 01/31/17 17:45 Sodium Chloride 1,000 ml @ 200 mls/hr Q5H PRN OTHER 01/31/17 17:45 Sodium Chloride 200 ml @ 0 mls/hr UNSCH PRN IV 01/31/17 17:45 (Mannitol Inj) 12.5 gm UNSCH PRN IV 01/31/17 17:45 (Albumin 25% Inj) 25 gm UNSCH PRN IV 01/31/17 17:45 (NS Flush) 5 ml UNSCH PRN IV FLUSH 01/31/17 17:45 (Heparin Inj) Dwell Heparin to f... UNSCH PRN OTHER 01/31/17 17:45 02/11/17 14:00 (Gentamicin (Dialysis) Inj) 10 mg UNSCH PRN OTHER 01/31/17 17:45 02/11/17 13:59 (Gelfoam 12 Mm/7 Mm Top) 1 foam UNSCH PRN TOPICAL 01/31/17 17:45 (Zofran Inj) 4 mg UNSCH PRN IV 01/31/17 17:45 (Tylenol) 650 mg UNSCH X1 PRN PO 01/31/17 17:45 03/02/17 17:44 (Benadryl) 25 mg UNSCH PRN PO 01/31/17 17:45 (Nitrostat Sl) 0.4 mg UNSCH PRN SL 01/31/17 17:45 (Catapres) 0.1 mg UNSCH PRN PO 01/31/17 17:45 (Ferrous Sulfate) 325 mg BID PO 02/06/17 21:00 02/13/17 08:19 (Lopressor) 25 mg BID PO 02/09/17 11:45 02/13/17 08:19 (NovoLOG SUPPLEMENTAL SCALE) 1 ACHS SLIDING SCALE SQ 02/09/17 12:00 02/13/17 08:20 Vancomycin HCl 1000 mg/Sodium Chloride 250 ml @ 250 mls/hr NURSING STAFF DEVELOPMENT COORDINATOR IV 02/10/17 08:30 02/14/17 08:29 02/11/17 09:04 Cefazolin Sodium/ Dextrose 50 ml @ 100 mls/hr NURSING STAFF DEVELOPMENT COORDINATOR IV 02/10/17 08:30 02/14/17 08:29 02/11/17 09:51 (Cozaar) 100 mg DAILY PO 02/10/17 11:00 02/13/17 08:19 (Phoslo) 667 mg TID PO 02/10/17 18:00 02/13/17 08:19 (Infed Inj) 100 mg DAILY@1800 IV PUSH 02/11/17 18:00 02/12/17 18:00 Vascular Central Line Catheter: Yes Assessment to: Continue Date of Insertion: Feb 11, 2017 Line: Central Venous Catheter Side: Right Location: Internal, Jugular Reason for Continuation Hemodialysis A/P Problem List: (1) ATN (acute tubular necrosis) ICD Code: N17.0 - Acute kidney failure with tubular necrosis (2) Weakness generalized ICD Code: R53.1 - Weakness (3) Hypertension ICD Code: I10 - Essential (primary) hypertension (4) Hypothyroidism ICD Code: E03.9 - Hypothyroidism, unspecified (5) Hyperlipidemia ICD Code: E78.5 - Hyperlipidemia, unspecified (6) Diabetes ICD Code: E11.9 - Type 2 diabetes mellitus without complications (7) Hypokalemia ICD Code: E87.6 - Hypokalemia Status: Resolved (8) Transaminitis ICD Code: R74.0 - Nonspecific elevation of levels of transaminase and lactic acid dehydrogenase [LDH] Status: Acute (9) Metabolic acidosis ICD Code: E87.2 - Acidosis Status: Resolved (10) Rhabdomyolysis ICD Code: M62.82 - Rhabdomyolysis Status: Acute (11) Acute renal failure ICD Code: N17.9 - Acute kidney failure, unspecified Status: Acute (12) Hyperkalemia ICD Code: E87.5 - Hyperkalemia Status: Resolved (13) Hyperphosphatemia ICD Code: E83.39 - Other disorders of phosphorus metabolism Assessment and Plan 71-year-old female admitted with acute renal failure and rhabdomyolysis. Now in acute renal failure, possibly chronic renal failure. Continue to Follow renal function. Possible improvement in renal function. Continue to monitor creatinine and urine output. Resume iron supplementation. Acute renal failure Rhabdomyolysis Possible CALLY on CKD but with unknown baseline creatinine. Probable ATN Continue dialysis per nephrology - started on 01/30 Follow BMP and electrolytes Nephrology following Total CK down trended from greater than 14,000-315 No evidence of structural abnormalities or hydronephrosis on imaging Status post Vas-Cath removal and permacath placement. Transaminitis Follow LFTs Currently she is in a downward trend CT abdomen and pelvis did not show any acute disease. 02/10 hepatitis profile negative Hypertension Bpo elevated with a sbp in the 150's. Will resume metoprolol 25 mg by mouth twice a day. Continue to monitor vital signs and adjust blood pressure medications accordingly. 02/13 BP with improved control however still elevated with a systolic blood pressure 150s. I will increase metoprolol to 50 minutes by mouth twice a day and continue losartan. Hyperlipidemia Statins on hold for now due to rhabdomyolysis Patient has been on statins chronically before these acute issues. Continue to hold statin. Hypothyroidism Continue supplements Monitor as an outpatient TSH within normal range Metabolic acidosis Resolved Acute anemia on Chronic anemia Resume ferrous sulfate 325 mg by mouth twice a day Follow hemoglobin - 7.7 today transfuse when necessary less than 7. Check iron profile and ferritin. Hypokalemia 02/11 Potassium level 3.2. Will replace orally and continue to monitor BMP. 02/12 Potassium 3.9 - continue to monitor bmp. Diabetes Insulin sliding scale Diabetic diet Follow blood sugars Blood sugars stable. Continue SSI with insulin NovoLog. Hypokalemia Resolved after repletion. Continue to monitor BMP Hyperphospatemia. Due to renal failure.Continue on Phoslo and continue to monitor levels. 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 Continue IV iron dextran. DVT prophylaxis SCDs Discharge Planning DC pending nephrology clearance and hemodialysis being set up as an outpatient. theater manager to assist on DC planning. Problem Qualifiers (1) Diabetes: Qualified Codes: E11.21 - Type 2 diabetes mellitus with diabetic nephropathy (2) Rhabdomyolysis: Qualified Codes: M62.82 - Rhabdomyolysis (3) Acute renal failure: Qualified Codes: N17.9 - Acute kidney failure, unspecified Arnol Aviles MD Feb 13, 2017 11:19
[2017-02-13 11:56] LABS: POTASSIUM 4.5 MEQ/L (3.5-5.1)
[2017-02-13 11:59] LABS: BICARBONATE 27.4 MEQ/L (21.0-32.0)
[2017-02-13 14:51] VITALS: BP 170/86; PULSE 67; RESP 16; TEMP 98; O2SAT 96
[2017-02-13] MEDS: IRON DEXTRAN 100 MG/2 ML VIAL IV PUSH SCH (17:32)
[2017-02-13 17:57] VITALS: BP 178/79; PULSE 69; RESP 16; TEMP 98.6; O2SAT 99
[2017-02-13] MEDS: METOPROLOL TARTRATE 50 MG TAB PO SCH (21:08)
[2017-02-13 21:31] VITALS: BP 166/77; PULSE 72; RESP 18; TEMP 99.4; O2SAT 97
[2017-02-14 00:43] VITALS: BP 167/72; PULSE 68; RESP 16; TEMP 98.8; O2SAT 99
[2017-02-14] MEDS: CHLORHEXIDINE GLUCONATE 2 % 1 PACK (2 CLOTHS) TOP SCH (04:00)
[2017-02-14] MEDS: LEVOTHYROXINE SODIUM 100 MCG TAB PO SCH (06:22)
[2017-02-14 07:19] LABS: BICARBONATE 26.7 MEQ/L (21.0-32.0)
[2017-02-14 07:22] LABS: HEMATOCRIT 21.3 % (35.0-46.0); MEAN CELL VOLUME 90.7 FL (80.0-100.0); MEAN CORPUSCULAR HGB CONC 34.2 % (32.0-36.0); PLATELET COUNT 167 TH/MM3 (150-450); RED BLOOD COUNT 2.35 MIL/MM3 (4.00-5.30); RED CELL DISTRIBUTION WIDTH 12.2 % (11.6-17.2); REVIEW FLAG FINAL
[2017-02-14] MEDS: DOCUSATE SODIUM 50 MG/SENNA 8.6 MG TAB PO SCH ×2 (07:50→23:23)
[2017-02-14] MEDS: CALCIUM ACETATE 667 MG CAP PO SCH ×3 (07:50→16:58)
[2017-02-14] MEDS: INSULIN ASPART SUPPLEMENTAL SCALE SQ SCH ×4 (07:50→21:00)
[2017-02-14] MEDS: METOPROLOL TARTRATE 50 MG TAB PO SCH ×2 (07:51→23:24)
[2017-02-14] MEDS: SODIUM CHLORIDE 0.9% FLUSH 10 ML FLUSH IV FLUSH SCH ×2 (07:51→23:24)
[2017-02-14] MEDS: LOSARTAN 50 MG TAB PO SCH (07:51)
[2017-02-14] MEDS: FERROUS SULFATE 325 MG (65 MG ELEMENTAL IRON) TAB PO SCH ×2 (07:51→23:23)
[2017-02-14] MEDS: PANTOPRAZOLE SOD 40 MG DELAYED RELEASE TAB PO SCH (07:51)
[2017-02-14 08:00] VITALS: BP 149/70; PULSE 65; RESP 18; TEMP 97.7; O2SAT 96
[2017-02-14] MEDS ORDERED: PILL SPLITTER OTHER PRN (10:15)
[2017-02-14 12:00] VITALS: BP 156/76; PULSE 68; RESP 18; TEMP 96.8; O2SAT 88
--- NOTE | 2017-02-14 14:13 | HHI.PR ---
Subjective Remarks denies any complaints denies cp/sob patient wants to know about DC Planning Objective Vitals Vital Signs Date Time Temp Pulse Resp B/P (MAP) Pulse Ox O2 Delivery O2 Flow Rate FiO2 02/14/17 12:00 96.8 68 18 156/76 (102) 88 02/14/17 08:00 97.7 65 18 149/70 (96) 96 02/14/17 04:27 02/14/17 00:43 98.8 68 16 167/72 (103) 99 02/13/17 21:31 99.4 72 18 166/77 (106) 97 02/13/17 17:57 98.6 69 16 178/79 (112) 99 02/13/17 14:51 98.0 67 16 170/86 (114) 96 I/O 02/13/17 02/13/17 02/13/17 02/14/17 02/14/17 02/14/17 07:00 15:00 23:00 07:00 15:00 23:00 Intake Total 1000 ml Output Total 1000 ml 2200 ml Balance -1000 ml 1000 ml -2200 ml Intake Oral 1000 ml Output Urine Total 1000 ml 2200 ml # Voids 3 # Bowel Movements 1 0 Result Diagram: 02/14/17 0520 02/14/17 0520 Imaging Last Impressions Central Venous Line 02/11/17 0000 Signed Impressions: Service Date/Time: Saturday, February 11, 2017 00:00 - CONCLUSION: Uncomplicated catheter removal. Russell Pelletier MD Catheter Placement X-Ray 02/11/17 0000 Signed Impressions: Service Date/Time: Saturday, February 11, 2017 09:07 - CONCLUSION: Uncomplicated PermaCath placement as above. Russell Pelletier MD Chest X-Ray 01/30/17 0000 Signed Impressions: Service Date/Time: Monday, January 30, 2017 13:01 - CONCLUSION: Catheter in good position. Marcos Pelletier MD FACR Liver Ultrasound 01/29/17 0000 Signed Impressions: Service Date/Time: Sunday, January 29, 2017 11:23 - CONCLUSION: Prominent gallbladder without stones or intrahepatic biliary duct dilatation. Marcos Pelletier MD FACR Abdomen/Pelvis CT 01/28/17 1642 Signed Impressions: Service Date/Time: Saturday, January 28, 2017 17:21 - CONCLUSION: No acute disease. Charlie Cheng MD Objective Remarks GENERAL: Well-nourished, well-developed pleasant female patient. CARDIOVASCULAR: Regular rate and rhythm without murmurs, gallops, or rubs. RESPIRATORY: Breath sounds equal bilaterally. No accessory muscle use. GASTROINTESTINAL: Abdomen soft, non-tender, nondistended. EXTREMITIES: No cyanosis, or edema. NEUROLOGICAL: Awake, alert, and oriented x 3. Non-focal. Procedures Vascath removal and placement of PermCath on right IJ on 02/11/17. Medications and IVs Current Medications Medications (Trade) Dose Ordered Sig/Melissa Route Start Time Stop Time Status Last Admin (NS Flush) 2 ml UNSCH PRN IV FLUSH 01/28/17 19:45 (NS Flush) 2 ml BID IV FLUSH 01/28/17 21:00 02/14/17 07:51 (Morphine Inj) 2 mg Q2H PRN IV 01/28/17 19:45 (Protonix) 40 mg DAILY PO 01/29/17 09:00 02/14/17 07:51 (Zofran Inj) 4 mg Q6H PRN IV 01/28/17 19:45 (Albuterol Neb) 2.5 mg Q2HR NEB PRN INH 01/28/17 19:45 (Heparin Inj) 5,000 units Q12H SQ 01/28/17 21:00 Future Hold 02/04/17 09:52 Miscellaneous Information 1 Q361D XX 01/28/17 19:45 (Chlorhexidine 2% Cloth) Taper DAILY@04 TOP 01/29/17 04:00 01/25/18 03:59 02/01/17 04:00 (Chlorhexidine 2% Cloth) 3 pack UNSCH PRN TOP 01/28/17 19:45 (Oneyda-Colace) 1 tab BID PO 01/28/17 21:00 02/14/17 07:50 (Milk Of Magnesia Liq) 30 ml Q12H PRN PO 01/28/17 19:45 (Senokot) 17.2 mg Q12H PRN PO 01/28/17 19:45 (Dulcolax Supp) 10 mg DAILY PRN RECTAL 01/28/17 19:45 (Lactulose Liq) 30 ml DAILY PRN PO 01/28/17 19:45 (Synthroid) 100 mcg DAILY@0600 PO 01/29/17 06:00 02/14/17 06:22 (D50w (Vial) Inj) 50 ml UNSCH PRN IV 01/28/17 20:00 (Glucagon Inj) 1 mg UNSCH PRN OTHER 01/28/17 20:00 (NS Flush) UNSCH PRN IVF 01/30/17 12:00 (Heparin Inj) UNSCH PRN IV FLUSH 01/30/17 13:00 02/09/17 14:46 Sodium Chloride 1,000 ml @ 0 mls/hr TITRATE PRN OTHER 01/31/17 17:45 01/31/17 17:40 (Heparin Inj) 8,000 units UNSCH PRN IV FLUSH 01/31/17 17:45 Sodium Chloride 1,000 ml @ 200 mls/hr Q5H PRN OTHER 01/31/17 17:45 Sodium Chloride 200 ml @ 0 mls/hr UNSCH PRN IV 01/31/17 17:45 (Mannitol Inj) 12.5 gm UNSCH PRN IV 01/31/17 17:45 (Albumin 25% Inj) 25 gm UNSCH PRN IV 01/31/17 17:45 (NS Flush) 5 ml UNSCH PRN IV FLUSH 01/31/17 17:45 (Heparin Inj) Dwell Heparin to f... UNSCH PRN OTHER 01/31/17 17:45 02/11/17 14:00 (Gentamicin (Dialysis) Inj) 10 mg UNSCH PRN OTHER 01/31/17 17:45 02/11/17 13:59 (Gelfoam 12 Mm/7 Mm Top) 1 foam UNSCH PRN TOPICAL 01/31/17 17:45 (Zofran Inj) 4 mg UNSCH PRN IV 01/31/17 17:45 (Tylenol) 650 mg UNSCH X1 PRN PO 01/31/17 17:45 03/02/17 17:44 (Benadryl) 25 mg UNSCH PRN PO 01/31/17 17:45 (Nitrostat Sl) 0.4 mg UNSCH PRN SL 01/31/17 17:45 (Catapres) 0.1 mg UNSCH PRN PO 01/31/17 17:45 (Ferrous Sulfate) 325 mg BID PO 02/06/17 21:00 02/14/17 07:51 (NovoLOG SUPPLEMENTAL SCALE) 1 ACHS SLIDING SCALE SQ 02/09/17 12:00 02/14/17 12:34 (Cozaar) 100 mg DAILY PO 02/10/17 11:00 02/14/17 07:51 (Phoslo) 667 mg TID PO 02/10/17 18:00 02/14/17 12:34 (Infed Inj) 100 mg DAILY@1800 IV PUSH 02/11/17 18:00 02/12/17 18:00 (Lopressor) 75 mg BID PO 02/14/17 21:00 (Pill Splitter) 1 ea UNSCH PRN OTHER 02/14/17 10:15 Vascular Central Line Catheter: Yes Assessment to: Continue Date of Insertion: Feb 11, 2017 Line: Central Venous Catheter Side: Right Location: Internal, Jugular A/P Problem List: (1) ATN (acute tubular necrosis) ICD Code: N17.0 - Acute kidney failure with tubular necrosis (2) Weakness generalized ICD Code: R53.1 - Weakness (3) Hypertension ICD Code: I10 - Essential (primary) hypertension (4) Hypothyroidism ICD Code: E03.9 - Hypothyroidism, unspecified (5) Hyperlipidemia ICD Code: E78.5 - Hyperlipidemia, unspecified (6) Diabetes ICD Code: E11.9 - Type 2 diabetes mellitus without complications (7) Hypokalemia ICD Code: E87.6 - Hypokalemia Status: Resolved (8) Transaminitis ICD Code: R74.0 - Nonspecific elevation of levels of transaminase and lactic acid dehydrogenase [LDH] Status: Acute (9) Metabolic acidosis ICD Code: E87.2 - Acidosis Status: Resolved (10) Rhabdomyolysis ICD Code: M62.82 - Rhabdomyolysis Status: Acute (11) Acute renal failure ICD Code: N17.9 - Acute kidney failure, unspecified Status: Acute (12) Hyperkalemia ICD Code: E87.5 - Hyperkalemia Status: Resolved (13) Hyperphosphatemia ICD Code: E83.39 - Other disorders of phosphorus metabolism Assessment and Plan 71-year-old female admitted with acute renal failure and rhabdomyolysis. Now in acute renal failure, possibly chronic renal failure. Continue to Follow renal function. Possible improvement in renal function. Continue to monitor creatinine and urine output. Resume iron supplementation. Acute renal failure Rhabdomyolysis Possible CALLY on CKD but with unknown baseline creatinine. Probable ATN Continue dialysis per nephrology - started on 01/30 Follow BMP and electrolytes Nephrology following Total CK down trended from greater than 14,000-315 No evidence of structural abnormalities or hydronephrosis on imaging Status post Vas-Cath removal and permacath placement. Transaminitis Follow LFTs Currently she is in a downward trend CT abdomen and pelvis did not show any acute disease. 02/10 hepatitis profile negative Hypertension Bpo elevated with a sbp in the 150's. Will resume metoprolol 25 mg by mouth twice a day. Continue to monitor vital signs and adjust blood pressure medications accordingly. 02/04 BP still elevated - will increase metoprolol to 50 mg by mouth twice a day and continue losartan. Hyperlipidemia Statins on hold for now due to rhabdomyolysis Patient has been on statins chronically before these acute issues. Continue to hold statin. Hypothyroidism Continue supplements Monitor as an outpatient TSH within normal range Metabolic acidosis Resolved Acute anemia on Chronic anemia Resume ferrous sulfate 325 mg by mouth twice a day Follow hemoglobin - 7.7 today transfuse when necessary less than 7. Check iron profile and ferritin. Hypokalemia 02/11 Potassium level 3.2. Will replace orally and continue to monitor BMP. 02/12 Potassium 3.9 - continue to monitor bmp. Diabetes Insulin sliding scale Diabetic diet Follow blood sugars Blood sugars stable. Continue SSI with insulin NovoLog. Hypokalemia Resolved after repletion. Continue to monitor BMP Hyperphospatemia. Due to renal failure.Continue on Phoslo and continue to monitor levels. 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 02/14 Continue IV iron dextran. DVT prophylaxis SCDs Discharge Planning DC pending nephrology clearance and hemodialysis being set up as an outpatient. game preserve manager to assist on DC planning. Problem Qualifiers (1) Diabetes: Qualified Codes: E11.21 - Type 2 diabetes mellitus with diabetic nephropathy (2) Rhabdomyolysis: Qualified Codes: M62.82 - Rhabdomyolysis (3) Acute renal failure: Qualified Codes: N17.9 - Acute kidney failure, unspecified Arnol Aviles MD Feb 14, 2017 14:13
[2017-02-14 16:00] VITALS: BP 181/77; PULSE 65; RESP 18; TEMP 97.3; O2SAT 98
[2017-02-14] MEDS: IRON DEXTRAN 100 MG/2 ML VIAL IV PUSH SCH (16:58)
--- NOTE | 2017-02-14 17:10 | HHI.NPPN ---
Subjective History of Present Illness 71-year-old female with past medical history of hyperlipidemia, diabetes mellitus, hypertension, recent urinary tract infection, possible chronic kidney disease who came to the hospital with complaint of generalized weakness, pain in the legs and shortness of breath on exertion. I was called to see the patient because of very high BUN and creatinine. The patient was told before that she has renal disease. Additional Remarks Patient is alert, no SOB, feeling better, eating well, clinically same. Review of Systems General Constitutional: Fatigue Objective Data Data Vital Signs Date Time Temp Pulse Resp B/P (MAP) Pulse Ox O2 Delivery O2 Flow Rate FiO2 02/14/17 12:00 96.8 68 18 156/76 (102) 88 02/14/17 08:00 97.7 65 18 149/70 (96) 96 02/14/17 04:27 02/14/17 00:43 98.8 68 16 167/72 (103) 99 02/13/17 21:31 99.4 72 18 166/77 (106) 97 02/13/17 17:57 98.6 69 16 178/79 (112) 99 -: 02/14/17 0520 02/14/17 0520 Physical Exam General Appearance: No Acute Distress, Comfortable Eyes Eye Exam: Pupils Equal Throat Throat Exam: Oral Mucosa [place] & Moist Neck Neck Exam: Neck Supple Pulmonary Resp Exam: Breath Sounds Equal, No Distress, Rhonchi, Decreased Bases Cardiology CV Exam: Regular Gastrointestinal/Abdomen GI Exam: Soft, Non-Tender, Bowel Sounds Present Extremeties Extremities Exam: Trace Edema Neurologic Neuro Exam: Alert, Awake, Oriented Psychiatric Psych Exam: Appropriate Responses Assessment/Plan Assessment Summary: CALLY/Acute Renal Failure Electrolyte Assessment: Hypokalemia Problem List: (1) Hypokalemia ICD Codes: E87.6 - Hypokalemia Status: Resolved (2) Rhabdomyolysis ICD Codes: M62.82 - Rhabdomyolysis Status: Acute (3) Metabolic acidosis ICD Codes: E87.2 - Acidosis Status: Resolved (4) Acute renal failure ICD Codes: N17.9 - Acute kidney failure, unspecified Status: Acute Plan Patient has low urine out put. Started on HD after the Vascath. CPK is improving and AST/ALT also decreasing. Follow the urine out put and BMP. Still not much improvement in renal function or urine out put. I got her labs from 2014, Creatinine was 1.26, this is from [facility]. Patient or her PCP was not able to provide any other labs. Has an element of CALLY. Need out patient HD arrangement as still no improvement in the renal function. Problem Qualifiers (1) Rhabdomyolysis: Qualified Codes: M62.82 - Rhabdomyolysis (2) Acute renal failure: Qualified Codes: N17.9 - Acute kidney failure, unspecified Matias Lang MD Feb 14, 2017 17:10
[2017-02-14] MEDS: HEPARIN SODIUM - IV 10,000 UNITS/10 ML VIAL IV FLUSH PRN (19:30)
[2017-02-14] MEDS: GENTAMICIN SULFATE (DIALYSIS USE ONLY) 20 MG/2 ML VIAL OTHER PRN (19:30)
[2017-02-14 20:00] VITALS: BP 180/49; PULSE 90; RESP 16; TEMP 98.3; O2SAT 94
[2017-02-15] VITALS: BP 159/67; PULSE 69; RESP 16; TEMP 98.9; O2SAT 97
[2017-02-15] MEDS: ACETAMINOPHEN 325 MG TAB PO PRN (00:28)
[2017-02-15] MEDS: CHLORHEXIDINE GLUCONATE 2 % 1 PACK (2 CLOTHS) TOP SCH (04:00)
[2017-02-15] MEDS: LEVOTHYROXINE SODIUM 100 MCG TAB PO SCH (07:07)
[2017-02-15 08:00] VITALS: BP 150/73; PULSE 61; RESP 18; TEMP 97.5; O2SAT 18
[2017-02-15] MEDS: INSULIN ASPART SUPPLEMENTAL SCALE SQ SCH ×4 (08:00→20:53)
[2017-02-15] MEDS: LOSARTAN 50 MG TAB PO SCH (08:11)
[2017-02-15] MEDS: FERROUS SULFATE 325 MG (65 MG ELEMENTAL IRON) TAB PO SCH ×3 (08:11→20:40)
[2017-02-15] MEDS: PANTOPRAZOLE SOD 40 MG DELAYED RELEASE TAB PO SCH (08:11)
[2017-02-15] MEDS: METOPROLOL TARTRATE 50 MG TAB PO SCH ×2 (08:12→20:40)
[2017-02-15] MEDS: CALCIUM ACETATE 667 MG CAP PO SCH ×3 (08:12→17:36)
[2017-02-15] MEDS: DOCUSATE SODIUM 50 MG/SENNA 8.6 MG TAB PO SCH ×2 (08:12→20:39)
[2017-02-15] MEDS: SODIUM CHLORIDE 0.9% FLUSH 10 ML FLUSH IV FLUSH SCH ×2 (09:00→20:42)
[2017-02-15 12:00] VITALS: BP 140/72; PULSE 62; RESP 17; TEMP 98; O2SAT 93
--- NOTE | 2017-02-15 12:10 | HHI.PR ---
Subjective Remarks No complaints denies cp/sob Objective Vitals Vital Signs Date Time Temp Pulse Resp B/P (MAP) Pulse Ox O2 Delivery O2 Flow Rate FiO2 02/15/17 08:00 97.5 61 18 150/73 (98) 18 02/15/17 00:00 98.9 69 16 159/67 (97) 97 02/14/17 20:00 98.3 90 16 180/49 (92) 94 02/14/17 16:00 97.3 65 18 181/77 (111) 98 I/O 02/14/17 02/14/17 02/14/17 02/15/17 02/15/17 02/15/17 07:00 15:00 23:00 07:00 15:00 23:00 Intake Total 960 ml 420 ml Output Total 2200 ml 2000 ml 1800 ml Balance -2200 ml -1040 ml 420 ml -1800 ml Intake Oral 960 ml 420 ml Output Urine Total 2200 ml 1800 ml Hemodialysis 2000 ml # Voids 2 # Bowel Movements 0 0 Result Diagram: 02/14/1751902/14/17 0520 Objective Remarks GENERAL: Well-nourished, well-developed pleasant female patient. CARDIOVASCULAR: Regular rate and rhythm without murmurs, gallops, or rubs. RESPIRATORY: Breath sounds equal bilaterally. No accessory muscle use. GASTROINTESTINAL: Abdomen soft, non-tender, nondistended. EXTREMITIES: No cyanosis, or edema. NEUROLOGICAL: Awake, alert, and oriented x 3. Non-focal. Procedures Vascath removal and placement of PermCath on right IJ on 02/11/17. Medications and IVs Current Medications Medications (Trade) Dose Ordered Sig/Melissa Route Start Time Stop Time Status Last Admin (NS Flush) 2 ml UNSCH PRN IV FLUSH 01/28/17 19:45 (NS Flush) 2 ml BID IV FLUSH 01/28/17 21:00 02/15/17 09:00 (Morphine Inj) 2 mg Q2H PRN IV 01/28/17 19:45 (Protonix) 40 mg DAILY PO 01/29/17 09:00 02/15/17 08:11 (Zofran Inj) 4 mg Q6H PRN IV 01/28/17 19:45 (Albuterol Neb) 2.5 mg Q2HR NEB PRN INH 01/28/17 19:45 (Heparin Inj) 5,000 units Q12H SQ 01/28/17 21:00 Future Hold 02/04/17 09:52 Miscellaneous Information 1 Q361D XX 01/28/17 19:45 (Chlorhexidine 2% Cloth) Taper DAILY@04 TOP 01/29/17 04:00 01/25/18 03:59 02/01/17 04:00 (Chlorhexidine 2% Cloth) 3 pack UNSCH PRN TOP 01/28/17 19:45 (Oneyda-Colace) 1 tab BID PO 01/28/17 21:00 02/15/17 08:12 (Milk Of Magnesia Liq) 30 ml Q12H PRN PO 01/28/17 19:45 (Senokot) 17.2 mg Q12H PRN PO 01/28/17 19:45 (Dulcolax Supp) 10 mg DAILY PRN RECTAL 01/28/17 19:45 (Lactulose Liq) 30 ml DAILY PRN PO 01/28/17 19:45 (Synthroid) 100 mcg DAILY@0600 PO 01/29/17 06:00 02/15/17 07:07 (D50w (Vial) Inj) 50 ml UNSCH PRN IV 01/28/17 20:00 (Glucagon Inj) 1 mg UNSCH PRN OTHER 01/28/17 20:00 (NS Flush) UNSCH PRN IVF 01/30/17 12:00 (Heparin Inj) UNSCH PRN IV FLUSH 01/30/17 13:00 02/14/17 19:30 Sodium Chloride 1,000 ml @ 0 mls/hr TITRATE PRN OTHER 01/31/17 17:45 01/31/17 17:40 (Heparin Inj) 8,000 units UNSCH PRN IV FLUSH 01/31/17 17:45 Sodium Chloride 1,000 ml @ 200 mls/hr Q5H PRN OTHER 01/31/17 17:45 Sodium Chloride 200 ml @ 0 mls/hr UNSCH PRN IV 01/31/17 17:45 (Mannitol Inj) 12.5 gm UNSCH PRN IV 01/31/17 17:45 (Albumin 25% Inj) 25 gm UNSCH PRN IV 01/31/17 17:45 (NS Flush) 5 ml UNSCH PRN IV FLUSH 01/31/17 17:45 (Heparin Inj) Dwell Heparin to f... UNSCH PRN OTHER 01/31/17 17:45 02/11/17 14:00 (Gentamicin (Dialysis) Inj) 10 mg UNSCH PRN OTHER 01/31/17 17:45 02/14/17 19:30 (Gelfoam 12 Mm/7 Mm Top) 1 foam UNSCH PRN TOPICAL 01/31/17 17:45 (Zofran Inj) 4 mg UNSCH PRN IV 01/31/17 17:45 (Tylenol) 650 mg UNSCH X1 PRN PO 01/31/17 17:45 03/02/17 17:44 02/15/17 00:28 (Benadryl) 25 mg UNSCH PRN PO 01/31/17 17:45 (Nitrostat Sl) 0.4 mg UNSCH PRN SL 01/31/17 17:45 (Catapres) 0.1 mg UNSCH PRN PO 01/31/17 17:45 (Ferrous Sulfate) 325 mg BID PO 02/06/17 21:00 02/15/17 08:11 (NovoLOG SUPPLEMENTAL SCALE) 1 ACHS SLIDING SCALE SQ 02/09/17 12:00 02/15/17 08:00 (Cozaar) 100 mg DAILY PO 02/10/17 11:00 02/15/17 08:11 (Phoslo) 667 mg TID PO 02/10/17 18:00 02/15/17 08:12 (Infed Inj) 100 mg DAILY@1800 IV PUSH 02/11/17 18:00 02/12/17 18:00 (Lopressor) 75 mg BID PO 02/14/17 21:00 02/15/17 08:12 (Pill Splitter) 1 ea UNSCH PRN OTHER 02/14/17 10:15 Vascular Central Line Catheter: Yes Assessment to: Continue Date of Insertion: Feb 11, 2017 Line: Central Venous Catheter Side: Right Location: Internal, Jugular Reason for Continuation on HD A/P Problem List: (1) ATN (acute tubular necrosis) ICD Code: N17.0 - Acute kidney failure with tubular necrosis (2) Weakness generalized ICD Code: R53.1 - Weakness (3) Hypertension ICD Code: I10 - Essential (primary) hypertension (4) Hypothyroidism ICD Code: E03.9 - Hypothyroidism, unspecified (5) Hyperlipidemia ICD Code: E78.5 - Hyperlipidemia, unspecified (6) Diabetes ICD Code: E11.9 - Type 2 diabetes mellitus without complications (7) Hypokalemia ICD Code: E87.6 - Hypokalemia Status: Resolved (8) Transaminitis ICD Code: R74.0 - Nonspecific elevation of levels of transaminase and lactic acid dehydrogenase [LDH] Status: Acute (9) Metabolic acidosis ICD Code: E87.2 - Acidosis Status: Resolved (10) Rhabdomyolysis ICD Code: M62.82 - Rhabdomyolysis Status: Acute (11) Acute renal failure ICD Code: N17.9 - Acute kidney failure, unspecified Status: Acute (12) Hyperkalemia ICD Code: E87.5 - Hyperkalemia Status: Resolved (13) Hyperphosphatemia ICD Code: E83.39 - Other disorders of phosphorus metabolism Assessment and Plan 71-year-old female admitted with acute renal failure and rhabdomyolysis. Now in acute renal failure, possibly chronic renal failure. Continue to Follow renal function. Possible improvement in renal function. Continue to monitor creatinine and urine output. Resume iron supplementation. Acute renal failure Rhabdomyolysis Possible CALLY on CKD but with unknown baseline creatinine. Probable ATN Continue dialysis per nephrology - started on 01/30 Follow BMP and electrolytes Nephrology following Total CK down trended from greater than 14,000-315 No evidence of structural abnormalities or hydronephrosis on imaging Status post Vas-Cath removal and permacath placement. 02/15 as per nephrology report, last creatinine on record from 2014 was 1.26. No other previous lab work could be found. Continue hemodialysis as per nephrology recommendations. Transaminitis Follow LFTs Currently she is in a downward trend CT abdomen and pelvis did not show any acute disease. hepatitis profile negative LFTs trended down to normal. Follow LFTs. Hypertension Bpo elevated with a sbp in the 150's. Will resume metoprolol 25 mg by mouth twice a day. Continue to monitor vital signs and adjust blood pressure medications accordingly. 02/15 BP with better control - continue metoprolol to 50 mg by mouth twice a day and continue losartan. Hyperlipidemia Statins held due to rhabdomyolysis Patient has been on statins chronically before these acute issues. 02/15 Resume statin. Hypothyroidism Continue supplements Monitor as an outpatient TSH within normal range Metabolic acidosis Resolved Acute anemia on Chronic anemia Resume ferrous sulfate 325 mg by mouth twice a day Follow hemoglobin - 7.7 today transfuse when necessary less than 7. Check iron profile and ferritin. Hypokalemia 02/11 Potassium level 3.2. Will replace orally and continue to monitor BMP. 02/12 Potassium 3.9 - continue to monitor bmp. Diabetes Insulin sliding scale Diabetic diet Follow blood sugars Blood sugars stable. Continue SSI with insulin NovoLog. Hypokalemia Resolved after repletion. Continue to monitor BMP Hyperphospatemia. Due to renal failure.Continue on Phoslo and continue to monitor levels. 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 02/14 Continue IV iron dextran. 02/15 DC IV iron and start oral iron sulfate. DVT prophylaxis SCDs Discharge Planning DC pending nephrology clearance and hemodialysis being set up as an outpatient. change release manager to assist on DC planning. Problem Qualifiers (1) Diabetes: Qualified Codes: E11.21 - Type 2 diabetes mellitus with diabetic nephropathy (2) Rhabdomyolysis: Qualified Codes: M62.82 - Rhabdomyolysis (3) Acute renal failure: Qualified Codes: N17.9 - Acute kidney failure, unspecified Arnol Aviles MD Feb 15, 2017 12:10
[2017-02-15 16:00] VITALS: BP 191/81; PULSE 69; RESP 17; TEMP 97.8; O2SAT 94
[2017-02-15 20:00] VITALS: BP 159/73; PULSE 71; RESP 20; TEMP 96.7; O2SAT 97
--- NOTE | 2017-02-15 20:07 | HHI.NPPN ---
Subjective History of Present Illness 71-year-old female with past medical history of hyperlipidemia, diabetes mellitus, hypertension, recent urinary tract infection, possible chronic kidney disease who came to the hospital with complaint of generalized weakness, pain in the legs and shortness of breath on exertion. I was called to see the patient because of very high BUN and creatinine. The patient was told before that she has renal disease. Additional Remarks Patient is alert, sitting on the chair, eating well. Review of Systems General Constitutional: Fatigue Objective Data Data 02/15/17 02/16/17 19:00 07:00 Output Total 1800 ml Balance -1800 ml Output Urine Total 1800 ml Vital Signs Date Time Temp Pulse Resp B/P (MAP) Pulse Ox O2 Delivery O2 Flow Rate FiO2 02/15/17 16:00 97.8 69 17 191/81 (117) 94 02/15/17 12:00 98.0 62 17 140/72 (94) 93 02/15/17 08:00 97.5 61 18 150/73 (98) 18 02/15/17 00:00 98.9 69 16 159/67 (97) 97 -: 02/14/17 0520 02/14/17 0520 Physical Exam General Appearance: No Acute Distress, Comfortable Eyes Eye Exam: Pupils Equal Throat Throat Exam: Oral Mucosa [place] & Moist Neck Neck Exam: Neck Supple Pulmonary Resp Exam: Breath Sounds Equal, No Distress, Rhonchi, Decreased Bases Cardiology CV Exam: Regular Gastrointestinal/Abdomen GI Exam: Soft, Non-Tender, Bowel Sounds Present Extremeties Extremities Exam: Trace Edema Neurologic Neuro Exam: Alert, Awake, Oriented Psychiatric Psych Exam: Appropriate Responses Assessment/Plan Assessment Summary: CALLY/Acute Renal Failure Electrolyte Assessment: Hypokalemia Problem List: (1) Hypokalemia ICD Codes: E87.6 - Hypokalemia Status: Resolved (2) Rhabdomyolysis ICD Codes: M62.82 - Rhabdomyolysis Status: Acute (3) Metabolic acidosis ICD Codes: E87.2 - Acidosis Status: Resolved (4) Acute renal failure ICD Codes: N17.9 - Acute kidney failure, unspecified Status: Acute Plan Patient has low urine out put. Started on HD after the Vascath. CPK is improving and AST/ALT also decreasing. Follow the urine out put and BMP. Still not much improvement in renal function or urine out put. Creatinine was 1.2 in 2014. I told her again to get the labs from PCP. artist's manager to arrange for out patient HD. She will be discharge as CALLY due to ATN from Hypotension and Rhabdo. If no improvement in next 2 months, will need kidney Biopsy to decide the cause of renal failure. BP is elevated, Metoprolol increased yesterday. Problem Qualifiers (1) Rhabdomyolysis: Qualified Codes: M62.82 - Rhabdomyolysis (2) Acute renal failure: Qualified Codes: N17.9 - Acute kidney failure, unspecified Matias Lang MD Feb 15, 2017 20:07
[2017-02-16] VITALS: BP 150/71; PULSE 63; RESP 20; TEMP 98.7; O2SAT 98
[2017-02-16] MEDS: CHLORHEXIDINE GLUCONATE 2 % 1 PACK (2 CLOTHS) TOP SCH (03:36)
[2017-02-16] MEDS: LEVOTHYROXINE SODIUM 100 MCG TAB PO SCH (05:22)
[2017-02-16 08:00] VITALS: BP 150/72; PULSE 62; RESP 17; TEMP 98.2; O2SAT 95
[2017-02-16] MEDS: INSULIN ASPART SUPPLEMENTAL SCALE SQ SCH ×4 (08:00→20:40)
[2017-02-16] MEDS: GENTAMICIN SULFATE (DIALYSIS USE ONLY) 20 MG/2 ML VIAL OTHER PRN (08:18)
[2017-02-16] MEDS: HEPARIN SODIUM - IV 10,000 UNITS/10 ML VIAL OTHER PRN (08:18)
[2017-02-16] MEDS: CALCIUM ACETATE 667 MG CAP PO SCH ×3 (08:48→17:25)
[2017-02-16] MEDS: PANTOPRAZOLE SOD 40 MG DELAYED RELEASE TAB PO SCH (08:48)
[2017-02-16] MEDS: DOCUSATE SODIUM 50 MG/SENNA 8.6 MG TAB PO SCH ×2 (08:48→20:37)
[2017-02-16] MEDS: LOSARTAN 50 MG TAB PO SCH (08:48)
[2017-02-16] MEDS: SODIUM CHLORIDE 0.9% FLUSH 10 ML FLUSH IV FLUSH SCH ×2 (08:48→20:37)
[2017-02-16] MEDS: FERROUS SULFATE 325 MG (65 MG ELEMENTAL IRON) TAB PO SCH ×3 (08:48→17:25)
[2017-02-16] MEDS: METOPROLOL TARTRATE 50 MG TAB PO SCH (08:48)
[2017-02-16] MEDS ORDERED: ACETAMINOPHEN 500 MG CPLT PO PRN (10:00)
[2017-02-16] MEDS: ACETAMINOPHEN 325 MG TAB PO PRN (10:27)
[2017-02-16 12:00] VITALS: BP 141/75; PULSE 71; RESP 18; TEMP 97.9; O2SAT 96
--- NOTE | 2017-02-16 12:14 | HHI.PR ---
Subjective Remarks patient seen in HD today. Feels well, Case discussed with CM team. patient tolerating HD and has no new concerns Objective Vitals Vital Signs Date Time Temp Pulse Resp B/P (MAP) Pulse Ox O2 Delivery O2 Flow Rate FiO2 02/16/17 08:00 98.2 62 17 150/72 (98) 95 02/16/17 00:00 98.7 63 20 150/71 (97) 98 02/15/17 20:00 96.7 71 20 159/73 (101) 97 02/15/17 16:00 97.8 69 17 191/81 (117) 94 I/O 02/15/17 02/15/17 02/15/17 02/16/17 02/16/17 02/16/17 07:00 15:00 23:00 07:00 15:00 23:00 Intake Total 420 ml 60 ml 0 ml Output Total 1800 ml 1000 ml 450 ml 1000 ml Balance 420 ml -1800 ml -940 ml -450 ml -1000 ml Intake Oral 420 ml 60 ml 0 ml Output Urine Total 1800 ml 1000 ml 450 ml Hemodialysis 1000 ml # Voids 2 # Bowel Movements 0 0 0 Result Diagram: 02/14/17 0520 02/14/17 0520 Imaging Last Impressions Central Venous Line 02/11/17 0000 Signed Impressions: Service Date/Time: Saturday, February 11, 2017 00:00 - CONCLUSION: Uncomplicated catheter removal. Russell Pelletier MD Catheter Placement X-Ray 02/11/17 0000 Signed Impressions: Service Date/Time: Saturday, February 11, 2017 09:07 - CONCLUSION: Uncomplicated PermaCath placement as above. Russell Pelletier MD Chest X-Ray 01/30/17 0000 Signed Impressions: Service Date/Time: Monday, January 30, 2017 13:01 - CONCLUSION: Catheter in good position. Marcos Pelletier MD FACR Liver Ultrasound 01/29/17 0000 Signed Impressions: Service Date/Time: Sunday, January 29, 2017 11:23 - CONCLUSION: Prominent gallbladder without stones or intrahepatic biliary duct dilatation. Marcos Pelletier MD FACR Abdomen/Pelvis CT 01/28/17 1642 Signed Impressions: Service Date/Time: Saturday, January 28, 2017 17:21 - CONCLUSION: No acute disease. Charlie Cheng MD Objective Remarks Permcath right chest GENERAL: This is a well-nourished, well-developed patient, in no apparent distress. CARDIOVASCULAR: Regular rate and rhythm without murmurs, gallops, or rubs. RESPIRATORY: Clear to auscultation. Breath sounds equal bilaterally. No wheezes , rales, or rhonchi. GASTROINTESTINAL: Abdomen soft, non-tender, nondistended. Normal active bowel sounds MUSCULOSKELETAL: Extremities without clubbing, cyanosis, or edema. NEURO: Alert & Oriented x4 to person, place, time, situation. Moves all ext x4 Procedures Vascath removal and placement of PermCath on right IJ on 02/11/17. Date of Insertion: Feb 11, 2017 Line: Central Venous Catheter Side: Right Location: Internal, Jugular A/P Problem List: (1) Acute renal failure ICD Code: N17.9 - Acute kidney failure, unspecified Status: Acute Plan: CALLY due to ATN from Hypotension and Rhabdo. arranging outpatient HD in [facility] per CM Rhabdo, electrolyte imbalance resolved (2) Anemia ICD Code: D64.9 - Anemia, unspecified Plan: of iron deficiency and chronic disease (CKD) transfuse as needed, s/p IV iron (3) Hypertension ICD Code: I10 - Essential (primary) hypertension Plan: imrpoved continue BID coreg and QD losartan and HD Follow to keep BP 140/90 (4) Diabetes ICD Code: E11.9 - Type 2 diabetes mellitus without complications Plan: Continue Accuchecks and ADA diet Off home glipizide Discharge Planning likely tuesday after HD Problem Qualifiers (1) Acute renal failure: Qualified Codes: N17.9 - Acute kidney failure, unspecified (2) Diabetes: Qualified Codes: E11.21 - Type 2 diabetes mellitus with diabetic nephropathy Lelia Joe MD Feb 16, 2017 12:14
--- NOTE | 2017-02-16 15:50 | HHI.NPPN ---
Subjective History of Present Illness 71-year-old female with past medical history of hyperlipidemia, diabetes mellitus, hypertension, recent urinary tract infection, possible chronic kidney disease who came to the hospital with complaint of generalized weakness, pain in the legs and shortness of breath on exertion. I was called to see the patient because of very high BUN and creatinine. The patient was told before that she has renal disease. Additional Remarks Patient is alert, seen after HD, no SOB. Review of Systems General Constitutional: Fatigue Objective Data Data 02/16/17 02/17/17 18:59 06:59 Output Total 1300 ml Balance -1300 ml Output Urine Total 300 ml Hemodialysis 1000 ml Vital Signs Date Time Temp Pulse Resp B/P (MAP) Pulse Ox O2 Delivery O2 Flow Rate FiO2 02/16/17 12:00 97.9 71 18 141/75 (97) 96 02/16/17 11:30 18 02/16/17 08:00 98.2 62 17 150/72 (98) 95 02/16/17 00:00 98.7 63 20 150/71 (97) 98 02/15/17 20:00 96.7 71 20 159/73 (101) 97 02/15/17 16:00 97.8 69 17 191/81 (117) 94 -: 02/14/17 0520 02/14/17 0520 Physical Exam General Appearance: No Acute Distress, Comfortable Eyes Eye Exam: Pupils Equal Throat Throat Exam: Oral Mucosa [place] & Moist Neck Neck Exam: Neck Supple Pulmonary Resp Exam: Breath Sounds Equal, No Distress, Rhonchi, Decreased Bases Cardiology CV Exam: Regular Gastrointestinal/Abdomen GI Exam: Soft, Non-Tender, Bowel Sounds Present Extremeties Extremities Exam: Trace Edema Neurologic Neuro Exam: Alert, Awake, Oriented Psychiatric Psych Exam: Appropriate Responses Assessment/Plan Assessment Summary: CALLY/Acute Renal Failure Electrolyte Assessment: Hypokalemia Problem List: (1) Hypokalemia ICD Codes: E87.6 - Hypokalemia Status: Resolved (2) Rhabdomyolysis ICD Codes: M62.82 - Rhabdomyolysis Status: Acute (3) Metabolic acidosis ICD Codes: E87.2 - Acidosis Status: Resolved (4) Acute renal failure ICD Codes: N17.9 - Acute kidney failure, unspecified Status: Acute Plan Patient has low urine out put. Started on HD after the Vascath. CPK is improving and AST/ALT also decreasing. Follow the urine out put and BMP. Still not much improvement in renal function or urine out put. Creatinine was 1.2 in 2015. I told her again to get the labs from PCP. frozen food department manager to arrange for out patient HD. She will be discharge as CALLY due to ATN from Hypotension and Rhabdo. If no improvement in next 2 months, will need kidney Biopsy to decide the cause of renal failure. BP is better, now on Coreg. HD done in AM and 1 liter removed. Problem Qualifiers (1) Rhabdomyolysis: Qualified Codes: M62.82 - Rhabdomyolysis (2) Acute renal failure: Qualified Codes: N17.9 - Acute kidney failure, unspecified Matias Lang MD Feb 16, 2017 15:50
[2017-02-16 16:00] VITALS: BP 135/74; PULSE 70; RESP 16; TEMP 97.8; O2SAT 97
[2017-02-16 20:00] VITALS: BP 157/64; PULSE 68; RESP 20; TEMP 98.7; O2SAT 93
[2017-02-16] MEDS: CARVEDILOL 12.5 MG TAB PO SCH (20:37)
[2017-02-17] VITALS (21 sets, daily range): BP systolic 124–190; BP diastolic 60–104; PULSE 61–78; RESP 16–20; TEMP 97.2–98.4; O2SAT 62–100
[2017-02-17 05:20] LABS: AUTOMATED NEUTROPHIL # 2.1 TH/MM3 (1.8-7.7); BASOPHIL % 1.1 % (0.0-2.0); EOSINOPHIL # 0.2 TH/MM3 (0-0.4); EOSINOPHIL % 6.1 % (0.0-4.0); LYMPH % 17.6 % (9.0-44.0); LYMPHOCYTE # 0.7 TH/MM3 (1.0-4.8); MEAN CELL VOLUME 89.2 FL (80.0-100.0); MEAN CORPUSCULAR HGB CONC 33.6 % (32.0-36.0); MONO % 18.1 % (0.0-8.0); NEUT % 57.1 % (16.0-70.0); PLATELET COUNT 128 TH/MM3 (150-450); RED BLOOD COUNT 2.29 MIL/MM3 (4.00-5.30); RED CELL DISTRIBUTION WIDTH 11.9 % (11.6-17.2); WHITE BLOOD COUNT 3.7 TH/MM3 (4.0-11.0)
[2017-02-17 05:26] LABS: HEMO FLAGS DIFF FINAL
[2017-02-17 05:28] LABS: HEMATOCRIT 20.5 % (35.0-46.0)
[2017-02-17] MEDS: LEVOTHYROXINE SODIUM 100 MCG TAB PO SCH (06:35)
[2017-02-17] MEDS: INSULIN ASPART SUPPLEMENTAL SCALE SQ SCH ×4 (08:00→20:58)
[2017-02-17] MEDS: PANTOPRAZOLE SOD 40 MG DELAYED RELEASE TAB PO SCH (08:15)
[2017-02-17] MEDS: DOCUSATE SODIUM 50 MG/SENNA 8.6 MG TAB PO SCH ×2 (08:16→20:53)
[2017-02-17] MEDS: LOSARTAN 50 MG TAB PO SCH (08:16)
[2017-02-17] MEDS: CARVEDILOL 12.5 MG TAB PO SCH ×2 (08:16→20:53)
[2017-02-17] MEDS: CALCIUM ACETATE 667 MG CAP PO SCH ×3 (08:16→17:15)
[2017-02-17] MEDS: SODIUM CHLORIDE 0.9% FLUSH 10 ML FLUSH IV FLUSH SCH ×2 (08:18→20:53)
[2017-02-17] MEDS ORDERED: SODIUM CHLOR 0.9% 250 ML INJ 250 ML IV ONE (09:45)
--- NOTE | 2017-02-17 12:12 | HHI.NPPN ---
Subjective History of Present Illness 71-year-old female with past medical history of hyperlipidemia, diabetes mellitus, hypertension, recent urinary tract infection, possible chronic kidney disease who came to the hospital with complaint of generalized weakness, pain in the legs and shortness of breath on exertion. I was called to see the patient because of very high BUN and creatinine. The patient was told before that she has renal disease. Additional Remarks Patient is alert, sitting on chair, not in distress. Review of Systems General Constitutional: Fatigue Objective Data Data 02/17/17 02/18/17 19:00 07:00 Output Total 200 ml Balance -200 ml Output Urine Total 200 ml Vital Signs Date Time Temp Pulse Resp B/P (MAP) Pulse Ox O2 Delivery O2 Flow Rate FiO2 02/17/17 12:07 97.9 64 18 141/68 99 02/17/17 11:46 97.3 69 18 124/67 (86) 98 02/17/17 08:00 97.3 66 16 153/70 (97) 99 02/17/17 00:00 98.4 66 20 149/68 (95) 94 02/16/17 20:00 98.7 68 20 157/64 (95) 93 02/16/17 16:00 97.8 70 16 135/74 (94) 97 -: 02/17/17 0450 02/14/17 0520 Physical Exam General Appearance: No Acute Distress, Comfortable Eyes Eye Exam: Pupils Equal Throat Throat Exam: Oral Mucosa [place] & Moist Neck Neck Exam: Neck Supple Pulmonary Resp Exam: Breath Sounds Equal, No Distress, Rhonchi, Decreased Bases Cardiology CV Exam: Regular Gastrointestinal/Abdomen GI Exam: Soft, Non-Tender, Bowel Sounds Present Extremeties Extremities Exam: Trace Edema Neurologic Neuro Exam: Alert, Awake, Oriented Psychiatric Psych Exam: Appropriate Responses Assessment/Plan Assessment Summary: CALLY/Acute Renal Failure Electrolyte Assessment: Hypokalemia Problem List: (1) Hypokalemia ICD Codes: E87.6 - Hypokalemia Status: Resolved (2) Rhabdomyolysis ICD Codes: M62.82 - Rhabdomyolysis Status: Acute (3) Metabolic acidosis ICD Codes: E87.2 - Acidosis Status: Resolved (4) Acute renal failure ICD Codes: N17.9 - Acute kidney failure, unspecified Status: Acute Plan Patient has low urine out put. Started on HD after the Vascath. CPK is improving and AST/ALT also decreasing. Follow the urine out put and BMP. Still not much improvement in renal function or urine out put. Creatinine was 1.2 in 2014. I told her again to get the labs from PCP. catering and events manager to arrange for out patient HD. She will be discharge as CALLY due to ATN from Hypotension and Rhabdo. If no improvement in next 2 months, will need kidney Biopsy to decide the cause of renal failure. BP is better, now on Coreg. HD done yesterday. Subacute Nurse's notes seen. To start out patient HD from . 02/22, will do HD on Tue. this week. Hold HD in AM, check BMP in AM. Add Epogen, Hgb. low, for transfusion. Problem Qualifiers (1) Rhabdomyolysis: Qualified Codes: M62.82 - Rhabdomyolysis (2) Acute renal failure: Qualified Codes: N17.9 - Acute kidney failure, unspecified Matias Lang MD Feb 17, 2017 12:12
--- NOTE | 2017-02-17 12:29 | HHI.PR ---
Subjective Remarks Patient seen and evaluated today in follow-up for end-stage renal disease. Hemoglobin is 6.6 today and patient will need a blood transfusion. This is discussed at length with the patient was in agreement. Objective Vitals Vital Signs Date Time Temp Pulse Resp B/P (MAP) Pulse Ox O2 Delivery O2 Flow Rate FiO2 02/17/17 12:07 97.9 64 18 141/68 99 02/17/17 11:46 97.3 69 18 124/67 (86) 98 02/17/17 08:00 97.3 66 16 153/70 (97) 99 02/17/17 00:00 98.4 66 20 149/68 (95) 94 02/16/17 20:00 98.7 68 20 157/64 (95) 93 02/16/17 16:00 97.8 70 16 135/74 (94) 97 I/O 02/16/17 02/16/17 02/16/17 02/17/17 02/17/17 02/17/17 07:00 15:00 23:00 07:00 15:00 23:00 Intake Total 0 ml 120 ml 60 ml 10 ml Output Total 450 ml 1300 ml 125 ml 250 ml 200 ml Balance -450 ml -1300 ml -5 ml -190 ml -190 ml Intake Oral 0 ml 120 ml 60 ml Blood Product IV Normal Saline Flush 10 ml Output Urine Total 450 ml 300 ml 125 ml 250 ml 200 ml Hemodialysis 1000 ml # Voids 1 1 # Bowel Movements 0 0 0 Result Diagram: 02/17/17 0450 02/14/17 0520 Objective Remarks Permcath right chest GENERAL: This is a well-nourished, well-developed patient, in no apparent distress. CARDIOVASCULAR: Regular rate and rhythm without murmurs, gallops, or rubs. RESPIRATORY: Clear to auscultation. Breath sounds equal bilaterally. No wheezes , rales, or rhonchi. GASTROINTESTINAL: Abdomen soft, non-tender, nondistended. Normal active bowel sounds MUSCULOSKELETAL: Extremities without clubbing, cyanosis, or edema. NEURO: Alert & Oriented x4 to person, place, time, situation. Moves all ext x4 Procedures Vascath removal and placement of PermCath on right IJ on 02/11/17. Date of Insertion: Feb 11, 2017 Line: Central Venous Catheter Side: Right Location: Internal, Jugular A/P Problem List: (1) Acute renal failure ICD Code: N17.9 - Acute kidney failure, unspecified Status: Acute Plan: CALLY due to ATN from Hypotension and Rhabdo. arranging outpatient HD in [facility] per CM Rhabdo, electrolyte imbalance resolved (2) Anemia ICD Code: D64.9 - Anemia, unspecified Plan: of iron deficiency and chronic disease (CKD) transfuse today 2 units packed red blood cells Status post IV iron and on daily oral iron (3) Hypertension ICD Code: I10 - Essential (primary) hypertension (4) Diabetes ICD Code: E11.9 - Type 2 diabetes mellitus without complications Plan: Continue Accuchecks and ADA diet Off home glipizide Discharge Planning likely tuesday after HD Problem Qualifiers (1) Acute renal failure: Qualified Codes: N17.9 - Acute kidney failure, unspecified (2) Diabetes: Qualified Codes: E11.21 - Type 2 diabetes mellitus with diabetic nephropathy Lelia Joe MD Feb 17, 2017 12:29
[2017-02-17] MEDS: FERROUS SULFATE 325 MG (65 MG ELEMENTAL IRON) TAB PO SCH ×2 (12:41→16:14)
[2017-02-17] MEDS ORDERED: EPOETIN ALFA 10,000 UNITS/ML VIAL IV PRN (14:00)
[2017-02-17] MEDS: cloNIDine HCL 0.1 MG TAB PO PRN (17:15)
[2017-02-18] VITALS: BP 152/74; PULSE 63; RESP 20; TEMP 98.3; O2SAT 95
[2017-02-18] MEDS: LEVOTHYROXINE SODIUM 100 MCG TAB PO SCH (05:18)
[2017-02-18 05:42] LABS: AUTOMATED NEUTROPHIL # 2.7 TH/MM3 (1.8-7.7); EOSINOPHIL # 0.3 TH/MM3 (0-0.4); EOSINOPHIL % 6.8 % (0.0-4.0); HEMATOCRIT 29.6 % (35.0-46.0); HEMO FLAGS DIFF FINAL; LYMPH % 17.4 % (9.0-44.0); LYMPHOCYTE # 0.8 TH/MM3 (1.0-4.8); MEAN CELL VOLUME 85.5 FL (80.0-100.0); MEAN CORPUSCULAR HEMOGLOBIN 28.1 PG (27.0-34.0); MEAN CORPUSCULAR HGB CONC 32.8 % (32.0-36.0); MONO % 17.4 % (0.0-8.0); NEUT % 57.4 % (16.0-70.0); PLATELET COUNT 162 TH/MM3 (150-450); RED BLOOD COUNT 3.46 MIL/MM3 (4.00-5.30); RED CELL DISTRIBUTION WIDTH 16.7 % (11.6-17.2); WHITE BLOOD COUNT 4.6 TH/MM3 (4.0-11.0)
[2017-02-18 05:47] LABS: POTASSIUM 3.2 MEQ/L (3.5-5.1)
[2017-02-18 05:51] LABS: BICARBONATE 29.7 MEQ/L (21.0-32.0)
[2017-02-18 08:00] VITALS: BP 192/82; PULSE 64; RESP 20; TEMP 98.8; O2SAT 95
[2017-02-18] MEDS: INSULIN ASPART SUPPLEMENTAL SCALE SQ SCH ×4 (08:32→20:42)
[2017-02-18] MEDS: LOSARTAN 50 MG TAB PO SCH (08:32)
[2017-02-18] MEDS: DOCUSATE SODIUM 50 MG/SENNA 8.6 MG TAB PO SCH ×2 (08:32→20:31)
[2017-02-18] MEDS: SODIUM CHLORIDE 0.9% FLUSH 10 ML FLUSH IV FLUSH SCH ×2 (08:32→20:32)
[2017-02-18] MEDS: CALCIUM ACETATE 667 MG CAP PO SCH ×3 (08:32→17:47)
[2017-02-18] MEDS: PANTOPRAZOLE SOD 40 MG DELAYED RELEASE TAB PO SCH (08:32)
[2017-02-18] MEDS: CARVEDILOL 12.5 MG TAB PO SCH ×2 (08:32→20:31)
[2017-02-18 12:00] VITALS: BP 188/80; PULSE 66; RESP 21; TEMP 98; O2SAT 100
[2017-02-18] MEDS: FERROUS SULFATE 325 MG (65 MG ELEMENTAL IRON) TAB PO SCH ×2 (12:04→17:47)
--- NOTE | 2017-02-18 13:29 | HHI.PR ---
Subjective Remarks Patient seen in follow up for Anemia and Renal Failure HD in am BP elevated after Blood transfusion' Hg Improved Objective Vitals Vital Signs Date Time Temp Pulse Resp B/P (MAP) Pulse Ox O2 Delivery O2 Flow Rate FiO2 02/18/17 12:00 98.0 66 21 188/80 (116) 100 02/18/17 08:00 98.8 64 20 192/82 (118) 95 02/18/17 00:00 98.3 63 20 152/74 (100) 95 02/17/17 20:00 97.2 78 20 141/63 (89) 97 02/17/17 18:38 98.0 65 18 150/74 02/17/17 18:08 98.0 62 16 151/74 100 02/17/17 17:38 98.0 65 18 188/75 100 02/17/17 17:08 98.0 61 18 180/78 100 02/17/17 16:53 98.1 62 17 190/80 02/17/17 16:38 98.0 67 16 188/81 100 02/17/17 16:23 98.2 65 18 190/70 100 02/17/17 16:02 97.8 64 18 188/70 100 02/17/17 16:00 97.9 65 18 179/104 (129) 100 02/17/17 15:03 62 17 155/89 100 02/17/17 14:15 98.0 65 18 160/63 100 02/17/17 13:45 97.8 65 154/75 100 I/O 02/17/17 02/17/17 02/17/17 02/18/17 02/18/17 02/18/17 07:00 15:00 23:00 07:00 15:00 23:00 Intake Total 60 ml 740 ml 2090 ml 60 ml Output Total 250 ml 200 ml 425 ml 500 ml Balance -190 ml 540 ml 1665 ml -440 ml Intake Oral 60 ml 730 ml 1240 ml 60 ml IV Total 20 ml Packed Cells 800 ml Blood Product IV Normal Saline Flush 10 ml 30 ml Output Urine Total 250 ml 200 ml 425 ml 500 ml # Voids 1 3 5 3 # Bowel Movements 0 1 0 0 Result Diagram: 02/18/1744402/18/17444 Objective Remarks Permcath right chest GENERAL: This is a well-nourished, well-developed patient, in no apparent distress. CARDIOVASCULAR: Regular rate and rhythm without murmurs, gallops, or rubs. RESPIRATORY: Clear to auscultation. Breath sounds equal bilaterally. No wheezes , rales, or rhonchi. GASTROINTESTINAL: Abdomen soft, non-tender, nondistended. Normal active bowel sounds MUSCULOSKELETAL: Extremities without clubbing, cyanosis, or edema. NEURO: Alert & Oriented x4 to person, place, time, situation. Moves all ext x4 Procedures Vascath removal and placement of PermCath on right IJ on 02/11/17. Date of Insertion: Feb 11, 2017 Line: Central Venous Catheter Side: Right Location: Internal, Jugular A/P Problem List: (1) Acute renal failure ICD Code: N17.9 - Acute kidney failure, unspecified Status: Acute Plan: CALLY due to ATN arranging outpatient HD in [facility] per CM Rhabdo, electrolyte imbalance resolved (2) Anemia ICD Code: D64.9 - Anemia, unspecified Plan: of iron deficiency and chronic disease (CKD) Hg 9.7 today transfuse today 2 units packed red blood cells Status post IV iron and on daily oral iron (3) Hypertension ICD Code: I10 - Essential (primary) hypertension Plan: add hydralazine (4) Diabetes ICD Code: E11.9 - Type 2 diabetes mellitus without complications Plan: Continue Accuchecks and ADA diet Off home glipizide Discharge Planning in after HD Problem Qualifiers (1) Acute renal failure: Qualified Codes: N17.9 - Acute kidney failure, unspecified (2) Diabetes: Qualified Codes: E11.21 - Type 2 diabetes mellitus with diabetic nephropathy Lelia Joe MD Feb 18, 2017 13:29
[2017-02-18] MEDS: hydrALAZINE HCL 25 MG TAB PO SCH ×2 (14:30→20:32)
--- NOTE | 2017-02-18 14:54 | HHI.NPPN ---
Subjective History of Present Illness 71-year-old female with past medical history of hyperlipidemia, diabetes mellitus, hypertension, recent urinary tract infection, possible chronic kidney disease who came to the hospital with complaint of generalized weakness, pain in the legs and shortness of breath on exertion. I was called to see the patient because of very high BUN and creatinine. The patient was told before that she has renal disease. Additional Remarks Patient is alert, seen in AM, no SOB. Review of Systems General Constitutional: Fatigue Objective Data Data 02/18/17 02/19/17 19:00 07:00 Intake Total 60 ml Output Total 500 ml Balance -440 ml Intake Oral 60 ml Output Urine Total 500 ml # Voids 3 # Bowel Movements 0 Vital Signs Date Time Temp Pulse Resp B/P (MAP) Pulse Ox O2 Delivery O2 Flow Rate FiO2 02/18/17 12:00 98.0 66 21 188/80 (116) 100 02/18/17 08:00 98.8 64 20 192/82 (118) 95 02/18/17 00:00 98.3 63 20 152/74 (100) 95 02/17/17 20:00 97.2 78 20 141/63 (89) 97 02/17/17 18:38 98.0 65 18 150/74 02/17/17 18:08 98.0 62 16 151/74 100 02/17/17 17:38 98.0 65 18 188/75 100 02/17/17 17:08 98.0 61 18 180/78 100 02/17/17 16:53 98.1 62 17 190/80 02/17/17 16:38 98.0 67 16 188/81 100 02/17/17 16:23 98.2 65 18 190/70 100 02/17/17 16:02 97.8 64 18 188/70 100 02/17/17 16:00 97.9 65 18 179/104 (129) 100 02/17/17 15:03 62 17 155/89 100 -: 02/18/17 0445 02/18/17 0445 Physical Exam General Appearance: No Acute Distress, Comfortable Eyes Eye Exam: Pupils Equal Throat Throat Exam: Oral Mucosa [place] & Moist Neck Neck Exam: Neck Supple Pulmonary Resp Exam: Breath Sounds Equal, No Distress, Rhonchi, Decreased Bases Cardiology CV Exam: Regular Gastrointestinal/Abdomen GI Exam: Soft, Non-Tender, Bowel Sounds Present Extremeties Extremities Exam: Trace Edema Neurologic Neuro Exam: Alert, Awake, Oriented Psychiatric Psych Exam: Appropriate Responses Assessment/Plan Assessment Summary: CALLY/Acute Renal Failure Electrolyte Assessment: Hypokalemia Problem List: (1) Hypokalemia ICD Codes: E87.6 - Hypokalemia Status: Resolved (2) Rhabdomyolysis ICD Codes: M62.82 - Rhabdomyolysis Status: Acute (3) Metabolic acidosis ICD Codes: E87.2 - Acidosis Status: Resolved (4) Acute renal failure ICD Codes: N17.9 - Acute kidney failure, unspecified Status: Acute Plan Patient has low urine out put. Started on HD after the Vascath. CPK is improving and AST/ALT also decreasing. Follow the urine out put and BMP. Still not much improvement in renal function or urine out put. Creatinine was 1.2 in 2014. I told her again to get the labs from PCP. marketing project manager to arrange for out patient HD. She will be discharge as CALLY due to ATN from Hypotension and Rhabdo. If no improvement in next 2 months, will need kidney Biopsy to decide the cause of renal failure. BP is better, now on Coreg. HD done yesterday. Sheriff Deputy's notes seen. To start out patient HD from . 02/22, will do HD on Sat. this week. Creatinine is slightly better, check in AM. BP was elevated, started on Hydralazine. Problem Qualifiers (1) Rhabdomyolysis: Qualified Codes: M62.82 - Rhabdomyolysis (2) Acute renal failure: Qualified Codes: N17.9 - Acute kidney failure, unspecified Matias Lang MD Feb 18, 2017 14:54
[2017-02-18 16:00] VITALS: BP 190/94; PULSE 66; RESP 20; TEMP 97.4; O2SAT 98
[2017-02-18 17:20] VITALS: BP 185/79; PULSE 70
[2017-02-18 20:50] VITALS: BP 166/81; PULSE 70; RESP 20; TEMP 99.4; O2SAT 96
[2017-02-19 00:07] VITALS: BP 154/83; PULSE 69; RESP 18; TEMP 99; O2SAT 96
[2017-02-19] MEDS: cloNIDine HCL 0.1 MG TAB PO PRN (05:44)
[2017-02-19] MEDS: hydrALAZINE HCL 25 MG TAB PO SCH (05:44)
[2017-02-19] MEDS: LEVOTHYROXINE SODIUM 100 MCG TAB PO SCH (05:44)
[2017-02-19] MEDS: HEPARIN SODIUM - IV 10,000 UNITS/10 ML VIAL IV FLUSH PRN (07:53)
[2017-02-19] MEDS: GENTAMICIN SULFATE (DIALYSIS USE ONLY) 20 MG/2 ML VIAL OTHER PRN (07:54)
[2017-02-19] MEDS: INSULIN ASPART SUPPLEMENTAL SCALE SQ SCH (08:00)
[2017-02-19 08:58] LABS: BICARBONATE 25.8 MEQ/L (21.0-32.0)
[2017-02-19 09:09] LABS: POTASSIUM 2.8 MEQ/L (3.5-5.1)
[2017-02-19] MEDS ORDERED: POTASSIUM CHLORIDE 10 MEQ CONTROLLED RELEASE TAB PO ONE (10:00)
[2017-02-19] MEDS: CARVEDILOL 12.5 MG TAB PO SCH (10:45)
[2017-02-19] MEDS: DOCUSATE SODIUM 50 MG/SENNA 8.6 MG TAB PO SCH (10:45)
[2017-02-19] MEDS: CALCIUM ACETATE 667 MG CAP PO SCH (10:45)
[2017-02-19] MEDS: LOSARTAN 50 MG TAB PO SCH (10:46)
[2017-02-19] MEDS: PANTOPRAZOLE SOD 40 MG DELAYED RELEASE TAB PO SCH (10:46)
[2017-02-19] MEDS: SODIUM CHLORIDE 0.9% FLUSH 10 ML FLUSH IV FLUSH SCH (10:48)
[2017-02-19] MEDS ORDERED: FERR325T20 PO (11:09)
[2017-02-19] MEDS ORDERED: CALC667C PO (11:09)
[2017-02-19] MEDS ORDERED: HYDR-3799 PO (11:09)
--- NOTE | 2017-02-19 11:10 | HHI.DCPOC ---
Discharge Care Plan Diagnosis: (1) Anemia (2) ATN (acute tubular necrosis) Goals to Promote Your Health * To prevent worsening of your condition and complications * To maintain your health at the optimal level Directions to Meet Your Goals Take your medications as prescribed Follow your dietary instruction Follow activity as directed Keep your appointments as scheduled Take your immunizations and boosters as scheduled If your symptoms worsen call your PCP, if no PCP go to Urgent Care Center or Emergency Room Smoking is Dangerous to Your Health. Avoid second hand smoke Call the 24-hour hour crisis hotline for domestic abuse at Lelia Joe MD Feb 19, 2017 11:10
--- NOTE | 2017-02-19 11:14 | HHI.DS ---
Discharge Summary Admission Date Jan 28, 2017 at 19:44 Discharge Date: Feb 19, 2017 Admitting Diagnosis acute renal failure. Rhabdomyolysis. Metabolic acidosis. Hypokale (1) Acute renal failure ICD Code: N17.9 - Acute kidney failure, unspecified Status: Acute (2) Anemia ICD Code: D64.9 - Anemia, unspecified (3) Hypertension ICD Code: I10 - Essential (primary) hypertension (4) Diabetes ICD Code: E11.9 - Type 2 diabetes mellitus without complications Procedures Vascath removal and placement of PermCath on right IJ on 02/11/17. Brief History - From Admission patient is 71-year-old female with past medical history of diabetes mellitus, hypertension, hyperlipidemia, hypothyroidism who presented to the [facility] with complaints of generalized weakness and body aches. The patient went to see her primary care physician approximately two or three days ago and she was diagnosed with a urinary tract infection and given prescription for Levaquin. She also reports difficulty ambulating and intermittent shortness of breath and dyspnea on exertion. She denies any associated symptoms of chest pain, orthopnea, paroxysmal nocturnal dyspnea or edema of the lower extremities. In addition, she denies any nausea or vomiting , abdominal pain or any gastrointestinal symptoms. In the emergency room, she was found to be in renal failure with a BUN of 100, creatinine 6.30 and hyperkalemic with potassium level 5.6. Also, the patient was in rhabdomyolysis with elevated CKs greater than 14,000 and had elevated liver enzymes. Her AST measured at 1167 and ALT 447. Her urine toxicology screen is negative. In addition her Tylenol level was less than 2.0 and aspirin level is 2.8. She was given a one liter bolus of normal saline, two ampules of sodium bicarb and Kayexalate. The patient was placed on a bicarb drip. When seen, she was lying comfortably in bed in no acute respiratory distress. The patient is on room air oxygen with saturation of 97%, blood pressure 120/63 with a pulse of 80. She had repeat labs last night, which showed creatinine of 6.50 with a potassium of 4.4. Her labs are pending at this point. CT scan of the abdomen and pelvis last night was unremarkable. In addition, she had a chest x-ray which showed no acute cardiopulmonary disease. The patient was placed on Cefepime for urinary tract infection. CBC/BMP: 02/18/17 0445 02/19/17 0637 Significant Findings Laboratory Tests Test 02/17/17 04:50 02/18/17 04:45 02/19/17 06:37 White Blood Count 3.7 TH/MM3 (4.0-11.0) Red Blood Count 2.29 MIL/MM3 (4.00-5.30) 3.46 MIL/MM3 (4.00-5.30) Hemoglobin 6.9 GM/DL (11.6-15.3) 9.7 GM/DL (11.6-15.3) Hematocrit 20.5 % (35.0-46.0) 29.6 % (35.0-46.0) Platelet Count 128 TH/MM3 (150-450) Monocytes (%) (Auto) 18.1 % (0.0-8.0) 17.4 % (0.0-8.0) Eosinophils (%) (Auto) 6.1 % (0.0-4.0) 6.8 % (0.0-4.0) Lymphocytes # (Auto) 0.7 TH/MM3 (1.0-4.8) 0.8 TH/MM3 (1.0-4.8) Blood Urea Nitrogen 36 MG/DL (7-18) 42 MG/DL (7-18) Creatinine 4.30 MG/DL (0.50-1.00) 4.40 MG/DL (0.50-1.00) Random Glucose 164 MG/DL (74-106) 179 MG/DL (74-106) Potassium Level 3.2 MEQ/L (3.5-5.1) 2.8 MEQ/L (3.5-5.1) Estimat Glomerular Filtration Rate 10 ML/MIN (>89) 10 ML/MIN (>89) Imaging Last Impressions Central Venous Line 02/11/17 0000 Signed Impressions: Service Date/Time: Saturday, February 11, 2017 00:00 - CONCLUSION: Uncomplicated catheter removal. Russell Pelletier MD Catheter Placement X-Ray 02/11/17 0000 Signed Impressions: Service Date/Time: Saturday, February 11, 2017 09:07 - CONCLUSION: Uncomplicated PermaCath placement as above. Russell Pelletier MD Chest X-Ray 01/30/17 0000 Signed Impressions: Service Date/Time: Monday, January 30, 2017 13:01 - CONCLUSION: Catheter in good position. Marcos Pelletier MD FACR Liver Ultrasound 01/29/17 0000 Signed Impressions: Service Date/Time: Sunday, January 29, 2017 11:23 - CONCLUSION: Prominent gallbladder without stones or intrahepatic biliary duct dilatation. Marcos Pelletier MD FACR Abdomen/Pelvis CT 01/28/17 1642 Signed Impressions: Service Date/Time: Saturday, January 28, 2017 17:21 - CONCLUSION: No acute disease. Charlie Cheng MD PE at Discharge Permcath right chest GENERAL: This is a well-nourished, well-developed patient, in no apparent distress. CARDIOVASCULAR: Regular rate and rhythm without murmurs, gallops, or rubs. RESPIRATORY: Clear to auscultation. Breath sounds equal bilaterally. No wheezes , rales, or rhonchi. GASTROINTESTINAL: Abdomen soft, non-tender, nondistended. Normal active bowel sounds MUSCULOSKELETAL: Extremities without clubbing, cyanosis, or edema. NEURO: Alert & Oriented x4 to person, place, time, situation. Moves all ext x4 Pt update on day of discharge Patient seen and evaluated in follow-up for discharge planning. Doing better. Potassium 2.8 today patient undergoing replacement. Discharge plans discussed with patient and with nursing team. No events overnight. Blood pressures improved Hospital Course Patient hasn't seen and treated for acute tubular necrosis and acute kidney injury. She did well with hydration however she did end up needing dialysis. Several days of dialysis and did have improvement of her electrolytes. Her renal function is not back to baseline however. She did require titration of her blood pressure medications for improved control. She was also found to have severe anemia which required IV iron replacement, a blood transfusion and oral continued iron supplement. Her acidosis was corrected and her diabetes was well-controlled. Pt Condition on Discharge: Stable Discharge Disposition: Discharge Home Discharge Time: > 30 minutes Discharge Instructions DIET: Follow Instructions for: Renal Failure Diet Activities you can perform: Regular-No Restrictions Follow up Referrals: Nephrology - 1 Week New Medications: Walker/Adult/Folding (Walker/Adult/Folding) 1 Mis Mis EA .ROUTE DIRECTED, #1 0 Refills Calcium Acetate (Phosphate Bin (Calcium Acetate) 667 Mg Cap 667 MG PO TID for kidney, #93 CAP Ferrous Sulfate (Ferosul) 325 Mg (65 Mg Iron) Tablet 325 MG PO BID@12,17 for iron, #60 TAB Hydralazine HCl (Hydralazine HCl) 25 Mg Tablet 25 MG PO Q8HR for Blood Pressure Management, #93 TAB Continued Medications: Gemfibrozil (Gemfibrozil) 600 Mg Tab 600 MG PO BIDAC, #60 TAB 0 Refills Take 30 minutes prior to breakfast and dinner. Glipizide (Glipizide) 5 Mg Tab 2.5 MG PO TID for Blood Sugar Management, #30 TAB 0 Refills Take 30 minutes before a meal Levothyroxine (Levothyroxine) 100 Mcg Tab 100 MCG PO DAILY for Thyroid, #30 TAB 0 Refills Losartan (Losartan) 100 Mg Tab 100 MG PO DAILY for Blood Pressure Management, #30 TAB 0 Refills Metoprolol Tartrate (Metoprolol Tartrate) 25 Mg Tab 25 MG PO BID, #60 TAB 0 Refills Rosuvastatin (Rosuvastatin) 40 Mg Tab 40 MG PO DAILY for Cholesterol Management, #30 TAB 0 Refills Discontinued Medications: Levofloxacin (Levofloxacin) 500 Mg Tablet 500 MG PO DAILY for Infection, TAB 0 Refills Lelia Joe MD Feb 19, 2017 11:14
== END 2017-02-19 11:59 | disposition home or self-care (01) | DRG 683 ==
LOC: PHED 14:30 → PHEDA 19:44 → PHICU 22:30 → PH3A 02-01 17:38 → PHICU 02-06 23:01 → PH3B 02-07 16:17
PROVIDERS: ADMIT Hospitalist; ATTEND Hospitalist
PROC: 05HM33Z Insertion of Infusion Device into Right Internal Jugular Vein, Percutaneous Approach (ICD-10-PCS; principal; 2017-01-30)
PROC: B543ZZA Ultrasonography of Right Jugular Veins, Guidance (ICD-10-PCS; 2017-01-30)
PROC: 5A1D60Z (ICD-10-PCS; 2017-01-30)
PROC: 05HM33Z Insertion of Infusion Device into Right Internal Jugular Vein, Percutaneous Approach (ICD-10-PCS; 2017-02-11)
PROC: B513ZZA Fluoroscopy of Right Jugular Veins, Guidance (ICD-10-PCS; 2017-02-11)
PROC: B543ZZA Ultrasonography of Right Jugular Veins, Guidance (ICD-10-PCS; 2017-02-11)
PROC: 30233N1 Transfusion of Nonautologous Red Blood Cells into Peripheral Vein, Percutaneous Approach (ICD-10-PCS; 2017-02-17)
DX: N17.0 Acute kidney failure with tubular necrosis (principal); M62.82 Rhabdomyolysis; E87.2 Acidosis; E11.22 Type 2 diabetes mellitus with diabetic chronic kidney disease; E83.39 Other disorders of phosphorus metabolism; N39.0 Urinary tract infection, site not specified; E83.51 Hypocalcemia; E86.0 Dehydration; E78.5 Hyperlipidemia, unspecified; I12.9 Hypertensive chronic kidney disease with stage 1 through stage 4 chronic kidney disease, or unspecified chronic kidney disease; N18.9 Chronic kidney disease, unspecified; E03.9 Hypothyroidism, unspecified; R74.0 Nonspecific elevation of levels of transaminase and lactic acid dehydrogenase [LDH]; E87.6 Hypokalemia; D50.9 Iron deficiency anemia, unspecified; D63.1 Anemia in chronic kidney disease; E87.5 Hyperkalemia; Z79.84 Long term (current) use of oral hypoglycemic drugs; Z87.891 Personal history of nicotine dependence
CPT/HCPCS: 36430; 36556; 36558; 71010; 74176; 76705; 76937; 77001; 80048; 80053; 80074; 80076; 80307; 81001; 82550; 82552; 82570; 82728; 82948; 83540; 83550; 83605; 83690; 83735; 83880; 84100; 84132; 84155; 84300; 84443; 84484; 85025; 85027; 85610; 85730; 86021; 86038; 86160; 86850; 86900; 86901; 86920; 87086; 87205; 87641; 90935; 93005; 96361; 96374; 96375; 99152; 99153; C1750; C1769; J0690; J0692; J1580; J1644; J1750; J1815; J1940; J2060; J2250; J3010; J3370; J3480; J7030; J7040; J7050; J7070; P9016; Q4081